=== PATIENT | male | born 1990 | race Caucasian/White ===

== ENCOUNTER 2016-11-04 16:35 | Emergency (ER) | payer OTHER ==
[~2016-11-04] VITALS: Ht 180.3 cm; Wt 75.1 kg
[~2016-11-04 16:35] MED LIST: LAMO25TA PO; MIRT15TA PO
[2016-11-04 16:46] VITALS: Ht 180.3 cm; Wt 75.1 kg
[2016-11-04] MEDS ORDERED: ACETAMINOPHEN 500 MG TAB PO ONE (17:44)
[2016-11-04 19:25] VITALS: TEMP 36.7
--- NOTE | 2016-11-04 20:00 | DIAGNOSTIC IMAGING REPORT ---
RIGHT RIBS UNILATERAL WITH PA CHEST CLINICAL HISTORY: Right lower rib pain. COMPARISON STUDY: Chest radiograph November 24, 2015. FINDINGS: There is no pneumothorax or pleural effusion. Lungs are clear. Cardiac size is normal. Mediastinal contours are normal. There is a possible acute nondisplaced fracture of the anterior right 10th rib at the level of the costal cartilage. IMPRESSION: No pneumothorax. Possible acute nondisplaced fracture of the anterior right 10th rib at the level the costal cartilage. Electronically signed by: Christoph Ma M.D. 11/04/2016 7:59 PM Dictated Date/Time: 11/04/2016 7:56 PM
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
[2016-11-04 20:30] VITALS: BP 127/86; PULSE 61; O2SAT 99
== END 2016-11-04 20:31 | disposition home or self-care (01) ==
LOC: C.EDB 16:36 → C.EDA 20:31
DX: T74.21XA Adult sexual abuse, confirmed, initial encounter (principal); Y07.59 Other non-family member, perpetrator of maltreatment and neglect; S22.31XA Fracture of one rib, right side, initial encounter for closed fracture; Y08.89XA Assault by other specified means, initial encounter; F17.200 Nicotine dependence, unspecified, uncomplicated

== ENCOUNTER 2016-11-09 20:34 | Emergency (ER) | payer OTHER ==
[~2016-11-09] VITALS: Ht 180.3 cm; Wt 75.5 kg
[2016-11-09 20:36] VITALS: Ht 180.3 cm; Wt 75.5 kg
[2016-11-09 20:56] VITALS: TEMP 36.9
--- NOTE | 2016-11-09 21:27 | DIAGNOSTIC IMAGING REPORT ---
CHEST ONE VIEW PORTABLE CLINICAL HISTORY: Possible foreign body. COMPARISON STUDY: Chest radiograph November 23, 2014. FINDINGS: Lung volumes are normal. Lungs are clear. There is no pneumothorax or pleural effusion. Pulmonary vascularity is normal. Cardiomediastinal silhouette is normal. No radiopaque foreign body is identified within the chest. IMPRESSION: 1. No acute cardiopulmonary findings. 2. No radiopaque foreign body within the chest. Electronically signed by: Christoph Ma M.D. 11/09/2016 9:26 PM Dictated Date/Time: 11/09/2016 9:23 PM
--- NOTE | 2016-11-09 21:29 | DIAGNOSTIC IMAGING REPORT ---
KUB CLINICAL HISTORY: Possible foreign body. COMPARISON STUDY: KUB November 23, 2014. FINDINGS: A 2.2 cm radiodensity projects over the pelvis and is likely within the rectum. A portion of this is metallic. No additional radiopaque foreign bodies are identified. Bowel gas pattern is normal. IMPRESSION: 2.2 cm radiodensity projecting over the pelvis which likely reflects a rectal foreign body, a portion of which is metallic. Electronically signed by: Christoph Ma M.D. 11/09/2016 9:28 PM Dictated Date/Time: 11/09/2016 9:26 PM
[2016-11-09 23:12] LABS: URINE APPEARANCE CLEAR (CLEAR); URINE BILIRUBIN NEG (NEG); URINE COLOR YELLOW; URINE EPITHELIAL CELL AUTO 0-5 /lpf (0-5); URINE NITRITE NEG (NEG); URINE PH 6.5 (4.5-7.5); URINE SPECIFIC GRAVITY 1.023 (1.000-1.030); UROBILINOGEN NEG (NEG); ZZUR CULT IF INDIC CLEAN CATCH NO
[2016-11-09 23:25] LABS: BASO % 0.2 %; BASO ABS # 0.01 K/uL (0-0.2); COMPLETE YES; EOS % 2.4 %; HEMATOCRIT 45.3 % (42-52); IG% 0.2 %; LYMPH % 28.9 %; LYMPH ABS # 1.81 K/uL (1.2-3.4); MEAN CELL VOLUME 88.8 fL (80-100); MEAN CORPUSCULAR HEMOGLOBIN 30.2 pg (25-34); MONO % 4.6 %; NEUT % 63.7 %; PLATELET COUNT 151 K/uL (130-400); WHITE BLOOD COUNT 6.26 K/uL (4.8-10.8)
[2016-11-09 23:33] LABS: MANUAL MICROSCOPIC REQUIRED? NO; REVIEW REQ? NO
[2016-11-09 23:48] LABS: BUN/CREATININE RATIO 20.4 (10-20); CALCIUM 8.2 mg/dl (8.5-10.1); CREATININE 0.95 mg/dl (0.60-1.40); POTASSIUM 3.7 mmol/L (3.5-5.1)
[2016-11-10] MEDS ORDERED: ACETAMINOPHEN 500 MG TAB PO STA
[2016-11-10 00:14] VITALS: BP 133/71; PULSE 76; O2SAT 98
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
== END 2016-11-10 00:14 | disposition home or self-care (01) ==
LOC: C.EDB 20:36 → C.EDA 11-10 00:14
DX: Z04.41 Encounter for examination and observation following alleged adult rape (principal); T18.9XXA Foreign body of alimentary tract, part unspecified, initial encounter; X58.XXXA Exposure to other specified factors, initial encounter; T14.91 Suicide attempt; X78.8XXA Intentional self-harm by other sharp object, initial encounter

== ENCOUNTER 2016-12-11 19:31 | Emergency (ER) | payer OTHER ==
[~2016-12-11] VITALS: Ht 182.9 cm; Wt 75.7 kg
[~2016-12-11 19:31] MED LIST changes: -LAMO25TA PO
[2016-12-11 19:43] VITALS: Ht 182.9 cm; Wt 75.7 kg
[2016-12-11 20:38] VITALS: TEMP 36.6
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
--- NOTE | 2016-12-11 21:18 | DIAGNOSTIC IMAGING REPORT ---
ABDOMEN 2VIEW W/PA CHEST RTN CLINICAL HISTORY: ABDOMINAL PAIN/GI pain COMPARISON STUDY: 11/09/2016 FINDINGS: The soft tissues, psoas shadows, renal outlines and intestinal gas pattern appear normal. There is no evidence for bowel obstruction. There is no evidence for free intraperitoneal air. No abnormal abdominal calcifications are seen. A frontal view of the chest was performed and is unremarkable. 2 cm radiopaque density overlying the lower descending colon on the left. This may represent bowel content. No obstructive characteristics IMPRESSION: No obstructive characteristics. 2 cm radiopaque density overlying the distal descending colon most likely related to bowel content. No obstructive characteristics The above report was generated using voice recognition software. It may contain grammatical, syntax or spelling errors. Electronically signed by: Sherman Tavarez M.D. 12/11/2016 9:17 PM Dictated Date/Time: 12/11/2016 9:15 PM
[2016-12-11 21:28] LABS: BASO % 0.5 %; BASO ABS # 0.04 K/uL (0-0.2); COMPLETE YES; EOS % 2.9 %; HEMATOCRIT 42.2 % (42-52); IG% 0.3 %; LYMPH % 23.9 %; LYMPH ABS # 1.83 K/uL (1.2-3.4); MEAN CELL VOLUME 88.5 fL (80-100); MEAN CORPUSCULAR HEMOGLOBIN 31.7 pg (25-34); MEAN CORPUSCULAR HGB CONC 35.8 g/dl (32-36); MEAN PLATELET VOLUME 10.8 fL (7.4-10.4); MONO % 6.1 %; NEUT % 66.3 %; PLATELET COUNT 161 K/uL (130-400); RED BLOOD COUNT 4.77 M/uL (4.7-6.1); WHITE BLOOD COUNT 7.67 K/uL (4.8-10.8)
[2016-12-11 21:38] LABS: INR 1.1 (0.9-1.1); PARTIAL THROMBOPLASTIN RATIO 1.2; PROTHROMBIN TIME (PATIENT) 11.8 SECONDS (9.0-12.0)
[2016-12-11 21:45] LABS: BLOOD UREA NITROGEN 15 mg/dl (7-18); BUN/CREATININE RATIO 14.7 (10-20); CALCIUM 8.8 mg/dl (8.5-10.1); CARBON DIOXIDE 29 mmol/L (21-32); CHLORIDE 104 mmol/L (98-107); GLUCOSE 114 mg/dl (70-99); POTASSIUM 3.7 mmol/L (3.5-5.1); SODIUM 139 mmol/L (136-145)
[2016-12-11 21:48] LABS: ALKALINE PHOSPHATASE 78 U/L (45-117); ALT/SGPT 25 U/L (12-78); AST/SGOT 12 U/L (15-37)
[2016-12-11] MEDS ORDERED: OMEP40CA41 PO (22:25)
[2016-12-11 23:08] VITALS: BP 138/71; PULSE 70; O2SAT 99
== END 2016-12-11 23:13 | disposition home or self-care (01) ==
LOC: C.EDB 19:33
DX: Z04.41 Encounter for examination and observation following alleged adult rape (principal); G89.29 Other chronic pain; R10.9 Unspecified abdominal pain; Z87.891 Personal history of nicotine dependence; Z91.5 Personal history of self-harm

== ENCOUNTER 2023-07-06 04:20 | Inpatient (IN) ==
--- NOTE | 2023-07-06 04:37 | Emergency Department Note ---
Impression & Plan Swallowed foreign body, Urethral foreign body ED Provider Note CHIEF COMPLAINT: Swallowed foreign body HISTORY OF PRESENTING ILLNESS: This 32-year-old male patient presents to the emergency department from [facility] with 4 correctional officers for evaluation of a swallowed foreign body. The patient apparently pulled out his urinary catheter, took it apart, swallowed the long central plastic part from the catheter and then inserted multiple pieces of the catheter back into the penis. He is complaining of lower abdominal pain and penile pain currently. He states that he swallowed the whole clear part of the inner catheter tube and vomited as he was trying to swallow it, but no nausea or vomiting since swallowing the catheter. 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 There was a bunch of urine that came out when he pulled the catheter out, but no blood. No fevers. No fevers. Admits to mild discomfort of his esophagus, but denies chest pain or shortness of breath. REVIEW OF SYSTEMS: See HPI for pertinent positives and pertinent negatives. ALLERGIES: Haldol MEDICATIONS: Antibiotic (does not remember the name), BuSpar, Remeron, Latuda per patient - did not have Med list from [facility] at the time of my exam PAST MEDICAL HISTORY: He is unsure what all he is diagnosed with and we do not have the medical records from [facility] at the time of my exam PHYSICAL EXAM: VITALS: Vitals are noted on the nurse's note and reviewed by myself. GENERAL: The patient was restrained with 4 correctional officers at bedside. Non toxic, no acute distress, non-diaphoretic. MOUTH: Mucous membranes moist. Uvula midline. Airway patent. NECK: Supple without nuchal rigidity. HEART: Regular rate and rhythm without murmurs gallops or rubs. LUNGS: Clear to auscultation bilaterally without wheezes, rales or rhonchi. No retractions or accessory muscle use. ABDOMEN: Positive bowel sounds x 4. Normal tympanic percussion. Soft, tender to palpation in the suprapubic area. No masses or organomegaly. Gallardo sign negative. No guarding or rebound tenderness. : Permission to perform the exam. Correctional officers in the room during the exam. Testicles are descended bilaterally and are nontender to palpation. No testicular masses. No penile lesions noted. No obvious foreign body at the urethral meatus. No blood coming from the urethral meatus. No penile discharge. NEURO: Patient was alert and oriented. DIFFERENTIAL DIAGNOSIS: Differential diagnosis includes swallowed foreign body, aspiration, obstruction, perforation, stricture, or others. ED COURSE AND MEDICAL DECISION MAKING: HISTORY FROM INDEPENDENT HISTORIAN: Additional history was obtained from the correctional Officers INTERPRETATION OF LABS: I interpreted the labs with full lab results as below in the lab section of this note. White blood cell count normal at 8.08. Hemoglobin slightly low at 13.9. Platelet count normal at 188. Coags normal. CMP without significant abnormalities. The patient was unable to give a urine sample while in the emergency department. INTERPRETATION OF IMAGING: Imaging studies were interpreted by myself and read by radiology as per the imaging section of this note. CT scan of the chest, abdomen, and pelvis with IV contrast showed numerous tubular foreign bodies throughout the stomach as well as 2 tubular structures within the base of the penis with 1 extending into the right side of the urinary bladder. There was also a radiopacity within the region of the superior azygous vein of unknown clinical significance. Correlate with surgical history. No other foreign bodies within the chest proper. EXTERNAL RECORDS REVIEWED: Per correctional officers the patient did not come with any medical paperwork to review. CONSULTATIONS: Carlin Gallagher PA-C of urology, Dr. Ascencio of GI, and Dr. Gorman of urology. MDM SUMMARY: I examined the patient with multiple correctional officers at bedside. The patient removed his Shields catheter and took it apart into different pieces. He swallowed the whole clear plastic central portion of the Shields catheter per patient and then put multiple smaller pieces into the urethra again. The patient has mild suprapubic tenderness on exam, but no other abdominal pain or tenderness. No nausea or vomiting. No respiratory symptoms. An IV lock was placed and labs were drawn. No concerning abnormalities on laboratory studies. CT scans of the chest, abdomen, and pelvis with IV contrast showed the foreign bodies in the stomach as well as in the urethra. I initially spoke with Carlin Gallagher PA-C of urology who came down and evaluated the patient prior to the results of the CT scans. Please refer to his dictation for further details. He stated that the urethral foreign bodies may require cystoscopy for removal or may be able to be removed at bedside. However, he was concerned that the swallowed portion would not be able to pass on its own. I spoke with Dr. Ascencio of GI who stated that since the Shields catheter part was soft and flexible that it should pass on its own and is not felt to be a risk for perforation. I discussed with Dr. Ascencio the concern of urology that the part of the Shields catheter that he swallowed would not be able to pass. However, Dr. Ascencio still does not feel that EGD is needed at this time and that the patient can be observed for any signs of obstruction while he is trying to pass it on his own. Dr. Gorman of urology reviewed the CT scan images and stated that the foreign bodies could be removed at bedside and that he did not require sedation or cystoscopy at this time. Dr. Gorman spoke with the patient about the bedside procedure. However, the patient refused to have the procedure done at bedside. Dr. Gorman did not feel the patient requires the OR or general anesthesia for the procedure and again reiterated that the procedure should be done at bedside under local anesthesia. Per Dr. Gorman, the patient continued to refuse despite understanding the risks for retained foreign bodies including urinary retention, infection, sepsis, perforation, or others. I spoke with Soledad SON from medical at [facility] urged to sending the patient back to [facility] for observation and passing of his foreign bodies. However, she stated that she would need to speak with the attending physician when he came in this morning to confirm acceptance back to the facility. Due to change of shift, the patient's care was transferred to Jocelin Lucas PA-C. Please refer to her dictation for further details. The patient's care was transferred in stable condition. DIAGNOSIS: Swallowed foreign body Self-inflicted urethral foreign body Past Med/Surg History Social History Smoking Status: Never smoker Preferred Language: Romansh Communication Ability: Effective Teacher Asst Required: No Beliefs That Will Affect Care: None Current Living Situation: Other Current Living Situation Comment: Inmate at [facility] Feels Safe at Home: Yes Allergies Allergies Allergy/AdvReac Type Severity Reaction Status Date / Time Egg Derived Allergy Unknown SWELLING Verified 11/09/16 21:28 OF THROAT haloperidol [From Haldol] Allergy Verified 07/06/23 07:13 Home Meds Home Medications Medication Instructions Recorded Confirmed No Known Home Medications 07/06/23 07/06/23 Results & Data (ED) Vital Signs Vital Signs - 24 hr 07/06/23 04:24 07/06/23 07:00 Temperature 36.7 C Temperature Source Temporal Artery Scan Pulse Rate 69 Pulse Rate [Finger] 72 Pulse Rhythm Regular Pulse Strength Normal Respiratory Rate 17 17 Respiratory Effort / Characteristics Non-Labored Spontaneous Respiratory Depth Normal Respiratory Pattern Regular Blood Pressure 132/84 Blood Pressure [Right Arm] 128/83 Blood Pressure Mean 100 Blood Pressure Mean [Right Arm] 98 Blood Pressure Position Sitting Pulse Oximetry 99 98 Oxygen Delivery Method Room Air Sepsis Recent Fever Within 48 Hours No Sepsis New/Unexplained Change in Mental Status N/A Sepsis Action Taken by Nursing No Action Required Laboratory Data 07/06/23 04:58 07/06/23 16:37 Lab Results 07/06/23 07/06/23 Range/Units 04:58 05:11 WBC 8.08 (4.8-10.8) K/ul RBC 4.70 (4.70-6.10) M/uL Hgb 13.9 L (14.0-18.0) g/dl POC Hgb 13.9 L (14.0-18.0) g/dl Hct 41.5 L (42.0-52.0) % POC Hct 41 L (42-52) % MCV 88.3 (80.0-100.0) fL MCH 29.6 (25.0-34.0) pg MCHC 33.5 (32.0-36.0) g/dL RDW Std Deviation 38.2 (36.4-46.3) fL RDW Coeff of Tiffany 11.9 (11.5-14.5) % Plt Count 188 (130-400) K/uL MPV 11.3 (9.4-12.4) fL Immature Gran % (Auto) 0.4 % Neut % (Auto) 81.7 % Lymph % (Auto) 9.8 % Casey % (Auto) 6.4 % Eos % (Auto) 1.2 % Baso % (Auto) 0.5 % Neut # (Auto) 6.60 H (1.40-6.50) K/uL Lymph # (Auto) 0.79 L (1.20-3.40) K/uL Casey # (Auto) 0.52 (0.11-0.59) K/uL Eos # (Auto) 0.10 (0.00-0.50) K/uL Baso # (Auto) 0.04 (0.00-0.20) K/uL Immature Gran # (Auto) 0.03 (0.01-0.20) K/uL PT 11.4 (9.0-12.0) Seconds INR 1.0 (0.9-1.1) APTT 30 (21-31) Seconds PTT Ratio 1.1 POC Sodium 141 (135-144) mmol/L Sodium 138 (136-145) mmol/L POC Potassium 3.9 (3.3-5.0) mmol/L Potassium 4.1 (3.5-5.1) mmol/L POC Chloride 100 L (101-112) mmol/L Chloride 105 (98-107) mmol/L Carbon Dioxide 28 (21-32) mmol/L POC Total CO2 28 (24-31) mmol/L Anion Gap 5 (3-11) POC Anion Gap 18.0 (16-25) mmol/L POC BUN 21 H (7-18) mg/dl BUN 19 (6-23) mg/dl Creatinine 0.86 (0.6-1.4) mg/dl POC Creatinine 0.8 (0.6-1.3) mg/dl Est Cr Clr Drug Dosing 128.9 ml/min Est GFR ( Amer) 133.0 ml/min Est GFR (Non-Af Amer) 114.7 ml/min BUN/Creatinine Ratio 22.1 H (10-20) Glucose 83 (70-99(Fasting)) mg/dl POC Glucose (other) 87 (70-99) mg/dl Calcium 9.0 (8.6-10.3) mg/dl POC Ioniz Calcium Janet 1.24 (1.12-1.32) mmol/l Total Bilirubin 0.4 (0.2-1.0) mg/dl AST 16 (13-39) U/L ALT 12 (7-52) U/L Alkaline Phosphatase 73 (34-104) U/L Total Protein 7.0 (6.0-8.3) gm/dl Albumin 4.6 (3.4-5.0) gm/dl Globulin 2.4 L (2.5-4.0) gm/dl Albumin/Globulin Ratio 1.9 (0.9-2) Administered Medications Lactated Ringer's (Lr) 1,000 mls @ 80 mls/hr IV .[id number] MALENA Stop: 07/07/23 09:41 Last Infusion: 07/06/23 16:28 Dose: 80 mls/hr Documented By: Admin: 07/06/23 10:41 Dose: 100 mls/hr Documented By: [facility] Morphine Sulfate (Morphine Sulfate 2 Mg/Ml Carp) 1 mg IV Q4H PRN PRN Reason: Pain(5+) Stop: 07/20/23 15:30 Last Admin: 07/06/23 15:50 Dose: 1 mg Documented By: MELODY Discontinued Medications Acetaminophen (Ofirmev) 1,000 mg in 100 mls @ 400 mls/hr IV NOW STA Stop: 07/06/23 11:03 Last Infusion: 07/06/23 12:10 Dose: Infused Documented By: Admin: 07/06/23 11:13 Dose: 400 mls/hr Documented By: [facility] Famotidine (Pepcid 20mg Iv Push) 20 mg in 5 mls @ 2.5 mls/min IV NOW STA Stop: 07/06/23 11:01 Last Admin: 07/06/23 11:12 Dose: 2.5 mls/min Documented By: [facility] Ioversol (Optiray 320 500ml) 100 ml IV ONCE ONE Stop: 07/06/23 05:39 Last Admin: 07/06/23 05:39 Dose: 87 ml Documented By: JUAN PABLO Ketorolac Tromethamine (Ketorolac Tromethamine 15 Mg/Ml Vial) 15 mg IV NOW STA Stop: 07/06/23 09:14 Last Admin: 07/06/23 09:19 Dose: 15 mg Documented By: PEREZ Lidocaine HCl (Xylocaine 1%/Sod Bicarb 20 Ml Vial) 20 ml INFIL NOW ONE Stop: 07/06/23 07:03 Last Admin: 07/06/23 08:51 Dose: Not Given Documented By: BRINA Imaging Data Radiologist's Impression: Abdomen/Pelvis CT 07/06/23 04:51 CR Exam(s): CT ABDOMEN + PELVIS With Contrast IV Amt: 87 ML OPTIRAY 320 EXAM: CT Abdomen and Pelvis With Intravenous Contrast CLINICAL HISTORY: Reason for exam: Swallowed catheter, abd pain, FB inserted in penis. TECHNIQUE: Axial computed tomography images of the abdomen and pelvis with intravenous contrast. CTDI is 28 mGy and DLP is 1355.83 mGy-cm. Automated exposure control was utilized for the study. A dose lowering technique was utilized adhering to the principles of ALARA. CONTRAST: Patient received 87 ML OPTIRAY 320 of IV contrast COMPARISON: No relevant prior studies available. FINDINGS: Lung bases: Unremarkable. No mass. No consolidation. ABDOMEN: Liver: Unremarkable. No mass. Gallbladder and bile ducts: Unremarkable. No calcified stones. No ductal dilation. Pancreas: Unremarkable. No mass. No ductal dilation. Spleen: Unremarkable. No splenomegaly. Adrenals: Unremarkable. No mass. Kidneys and ureters: Unremarkable. No solid mass. No hydronephrosis. Stomach and bowel: There are numerous tubular foreign bodies demonstrated throughout the stomach. No obstruction. No mucosal thickening. PELVIS: Appendix: No findings to suggest acute appendicitis. Bladder: See below. Reproductive: There are 2 tubular structures demonstrated within the base of the penis 1 extending into the right side of the urinary bladder, presumed foreign body. ABDOMEN and PELVIS: Intraperitoneal space: Unremarkable. No free air. No significant fluid collection. Bones/joints: No acute fracture. No dislocation. Soft tissues: Unremarkable. Vasculature: Unremarkable. No abdominal aortic aneurysm. Lymph nodes: Unremarkable. No enlarged lymph nodes. IMPRESSION: Multiple presumed foreign bodies as described, correlate clinically. Communications: Verify Receipt Electronically signed by: Candelario Rios MD 07/06/23 06:[address] 07/06/23 04:51 Exam(s): CT CHEST With Contrast IV Amt: 87 ML OPTIRAY 320 EXAM: CT Chest With Intravenous Contrast CLINICAL HISTORY: Reason for exam: Swallowed urinary catheter, dysphagia. TECHNIQUE: Axial computed tomography images of the chest with intravenous contrast. CTDI is 28 mGy and DLP is 1355.83 mGy-cm. Automated exposure control was utilized for the study. A dose lowering technique was utilized adhering to the principles of ALARA. CONTRAST: Patient received 87 ML OPTIRAY 320 of IV contrast COMPARISON: No relevant prior studies available. FINDINGS: Lungs: Unremarkable. No mass. No consolidation. Pleural space: Unremarkable. No pneumothorax. No significant effusion. Heart: Unremarkable. No cardiomegaly. No significant pericardial effusion. No significant coronary artery calcifications. Bones/joints: Unremarkable. No acute fracture. No dislocation. Soft tissues: Unremarkable. Vasculature: There is 9 mm metallic like radiopacity present within the region of the azygous vein. No thoracic aortic aneurysm. Lymph nodes: Unremarkable. No enlarged lymph nodes. Stomach and bowel: Abnormality within the stomach please see abdomen pelvis CT report. IMPRESSION: Radiopacity superior azygous vein of unknown clinical significance. Correlate with surgical history. No other foreign bodies within the chest proper Electronically signed by: Candelario Rios MD 07/06/23 06:24 AM Discharge Plan Visit Data Chief Complaint: Foreign Body Stated Complaint: SWALLOWED PIECES OF HIS CATHETER ED Provider: Gema Bonilla ED Midlevel Provider: Jocelin Lucas Discharge Problem: Swallowed foreign body, Urethral foreign body Patient Disposition: Admitted As Inpatient Condition: Good Discharge Instructions Interventions: ED Discharge Assessment Last Done: 07/06/23 14:14 Discharge Problem: Swallowed foreign body Qualifiers: Encounter type: initial encounter Qualified Code(s): T18.9XXA - Foreign body of alimentary tract, part unspecified, initial encounter Urethral foreign body Qualifiers: Encounter type: initial encounter Qualified Code(s): T19.0XXA - Foreign body in urethra, initial encounter
[2023-07-06 05:14] LABS: Basophils # (auto) 0.04 K/uL (0.00-0.20); Basophils % (auto) 0.5 %; Eosinophils % (auto) 1.2 %; Hematocrit (blood only) 41.5 % (42.0-52.0); Hemoglobin 13.9 g/dl (14.0-18.0); Immature Granulocytes # (auto) 0.03 K/uL (0.01-0.20); Immature Granulocytes % (auto) 0.4 %; Lymphocytes # (auto) 0.79 K/uL (1.20-3.40); Lymphocytes % (auto) 9.8 %; Mean Corpuscular Hemoglobin 29.6 pg (25.0-34.0); Mean Corpuscular Hgb Conc 33.5 g/dL (32.0-36.0); Mean Corpuscular Volume 88.3 fL (80.0-100.0); Mean Platelet Volume 11.3 fL (9.4-12.4); Monocytes # (auto) 0.52 K/uL (0.11-0.59); Monocytes % (auto) 6.4 %; Neutrophils % (auto) 81.7 %; Platelet Count 188 K/uL (130-400); RDW Coefficient of Variation 11.9 % (11.5-14.5); RDW Standard Deviation 38.2 fL (36.4-46.3); White Blood Count 8.08 K/ul (4.8-10.8)
[2023-07-06 05:30] LABS: Albumin Globulin Ratio 1.9 (0.9-2); Albumin Level 4.6 gm/dl (3.4-5.0); BUN Creatinine Ratio 22.1 (10-20); Bilirubin,Total 0.4 mg/dl (0.2-1.0); Creatinine Clr Calc Pharmacy 128.9 ml/min; Est GFR (Non-African American) 114.7 ml/min; Globulin 2.4 gm/dl (2.5-4.0); Potassium 4.1 mmol/L (3.5-5.1)
--- NOTE | 2023-07-06 05:30 | Urology Consultation ---
Date of Consultation July 06, 2023 Assessment & Plan (1) Urethral foreign body: I discussed with the treating clinician the emergency department. The patient currently has imaging of his chest, abdomen, and pelvis secondary to the issues with the foreign body as described in history of present illness We will wait to see what the imaging showsI suspect the patient may require some type of urethral manipulation with possible cystoscopy due to the noted foreign body insertion Would recommend making the patient n.p.o. for the present time Additional recommendations will be forthcoming based on patient's imaging results Attending note: Agree with note as above. Patient's vitals and labs were all reviewed. Pertinent values in the HPI and plan section. Imaging was reviewed interpreted by myself. There is have numerous foreign bodies within the stomach. Additionally there appears to be 2 segments of likely the Shields catheter foreign body within the urethra with the head of the Shields appearing to be within the bladder. White count 8.08. Creatinine was 0.86. Hemoglobin 13.9. Vitals were reviewed. Patient's surgical, medical, social, and family history were all reviewed with pertinent values as above. Awaiting assessment from GI specialist in order to coordinate extraction of urethral/bladder foreign body. Per imaging does appear to be possibly able to be manually removed without cystoscopy however may end up needing cystoscopic removal if foreign body migrat es into the bladder. Will likely require upper endoscopy/EGD in order to extract foreign body from stomach and would be able to likely coordinate extraction dependent on gastroenterology plan. History of Present Illness Reason for Consultation: Urethral foreign body History of Present Illness This is a 32-year-old male who is currently incarcerated. The patient presented to the emergency department secondary to issues with foreign body. The notes that he has a chronic indwelling Shields catheter secondary to urethral strictureshe notes the urethral strictures are secondary to him placing numerous foreign bodies into his urethra in the past. Patient notes that he e destiny had a suprapubic catheter at 1 point but no longer has this. To the best of his knowledge the Shields catheter was able to be placed at bedside but he notes that he is unable to urinate effectively without a catheter in place. The patient notes that last evening he pulled his Shields catheter out with the balloon still inflated. The patient then dismantled his Shields catheter swallowing several parts of it and then reinserting several parts of the Shields catheter back into his urethra. At the present time he does note some penile pain and is unable to urinate. When he did pull his Shields catheter out he noted some urine drained but he did not have any hematuria. He denies any back or flank pain. Since arrival to hospital patient has had labs including a CBC were white blood cell count and platelet count were normal. His hemoglobin and hematocrit were 13.9 and 41.5. Coagulation studies and chemistry profile is pending. At the time of my interview the patient was resting comfortably in bed and he was in no distress. Concerning past surgical history the patient notes that he has had numerous cystoscopies and endoscopies Concerning past medical history the patient says that he is treated for "psychiatric issues" but is unsure of his exact diagnoses Social history the patient does not smoke or vape Concerning family history he was unable to provide any details regarding this area Allergies Allergy/AdvReac Type Severity Reaction Status Date / Time Egg Derived Allergy Unknown SWELLING Verified 11/09/16 21:28 OF THROAT Patient History Social History Smoking Status: Never smoker Preferred Language: Mongolian Feels Safe at Home: Yes Review of Systems Constitutional: no fever and no chills Ear, Nose, Mouth, Throat: no hearing loss Respiratory: no cough and no dyspnea Cardiovascular: no chest pain Gastrointestinal: no abdominal pain, no nausea and no vomiting Genitourinary: + as per Subjective / HPI Musculoskeletal: no back pain Integumentary: no rash Neurologic: no localized weakness Physical Exam Constitutional: WD/WN, vitals as above Eyes: no conjunctival abnormality ENMT: Ears: no hearing impairment Mouth: no oropharynx abnormality Neck: trachea midline Respiratory: normal respiratory effort, lungs clear to auscultation Cardiovascular: Rate/Rhythm: regular rate and regular rhythm Gastrointestinal (Abdomen): Abdomen is soft and nondistended. There is no pain with palpation Musculoskeletal: No calf tenderness Skin: no rashes Neurologic: moves all extremities Psychiatric: A+Ox3, euthymic affect Genitourinary: Patient's penis was examined. The penis was semirigid with a possible palpable foreign body in the penile shaft. There is nothing protruding from the urethral meatus. The penile shaft was somewhat tender to palpation Results & Data Vital Signs (Past 12 Hours) Vital Signs Temp Pulse Resp BP Pulse Ox O2 Del Method 07/06/23 04:24 36.7 C 69 17 132/84 99 Room Air PG Care Time/CCT Total # of Minutes Spent Total Time Spent with Patient: Total time spent is greater than 50% in coordination of care (as documented) at patient's floor/unit and/or counseling patient: Coding Level of Care Code 40038 IN/OBS CONSULT LVL 5,80M Diagnoses Urethral foreign body T19.0XXA
[2023-07-06] MEDS: OPTIRAY 320 500ml IV ONE (05:39)
[2023-07-06 05:44] LABS: Partial Thromboplastin Ratio 1.1; Partial Thromboplastin Time 30 Seconds (21-31); Prothrombin Time 11.4 Seconds (9.0-12.0)
--- NOTE | 2023-07-06 06:22 | CT Scan Report ---
Exam(s): CT ABDOMEN + PELVIS With Contrast IV Amt: 87 ML OPTIRAY 320 EXAM: CT Abdomen and Pelvis With Intravenous Contrast CLINICAL HISTORY: Reason for exam: Swallowed catheter, abd pain, FB inserted in penis. TECHNIQUE: Axial computed tomography images of the abdomen and pelvis with intravenous contrast. CTDI is 28 mGy and DLP is 1355.83 mGy-cm. Automated exposure control was utilized for the study. A dose lowering technique was utilized adhering to the principles of ALARA. CONTRAST: Patient received 87 ML OPTIRAY 320 of IV contrast COMPARISON: No relevant prior studies available. FINDINGS: Lung bases: Unremarkable. No mass. No consolidation. ABDOMEN: Liver: Unremarkable. No mass. Gallbladder and bile ducts: Unremarkable. No calcified stones. No ductal dilation. Pancreas: Unremarkable. No mass. No ductal dilation. Spleen: Unremarkable. No splenomegaly. Adrenals: Unremarkable. No mass. Kidneys and ureters: Unremarkable. No solid mass. No hydronephrosis. Stomach and bowel: There are numerous tubular foreign bodies demonstrated throughout the stomach. No obstruction. No mucosal thickening. PELVIS: Appendix: No findings to suggest acute appendicitis. Bladder: See below. Reproductive: There are 2 tubular structures demonstrated within the base of the penis 1 extending into the right side of the urinary bladder, presumed foreign body. ABDOMEN and PELVIS: Intraperitoneal space: Unremarkable. No free air. No significant fluid collection. Bones/joints: No acute fracture. No dislocation. Soft tissues: Unremarkable. Vasculature: Unremarkable. No abdominal aortic aneurysm. Lymph nodes: Unremarkable. No enlarged lymph nodes. IMPRESSION: Multiple presumed foreign bodies as described, correlate clinically. Communications: Verify Receipt Electronically signed by: Candelario Rios MD 07/06/23 06:20 AM
--- NOTE | 2023-07-06 06:25 | CT Scan Report ---
Exam(s): CT CHEST With Contrast IV Amt: 87 ML OPTIRAY 320 EXAM: CT Chest With Intravenous Contrast CLINICAL HISTORY: Reason for exam: Swallowed urinary catheter, dysphagia. TECHNIQUE: Axial computed tomography images of the chest with intravenous contrast. CTDI is 28 mGy and DLP is 1355.83 mGy-cm. Automated exposure control was utilized for the study. A dose lowering technique was utilized adhering to the principles of ALARA. CONTRAST: Patient received 87 ML OPTIRAY 320 of IV contrast COMPARISON: No relevant prior studies available. FINDINGS: Lungs: Unremarkable. No mass. No consolidation. Pleural space: Unremarkable. No pneumothorax. No significant effusion. Heart: Unremarkable. No cardiomegaly. No significant pericardial effusion. No significant coronary artery calcifications. Bones/joints: Unremarkable. No acute fracture. No dislocation. Soft tissues: Unremarkable. Vasculature: There is 9 mm metallic like radiopacity present within the region of the azygous vein. No thoracic aortic aneurysm. Lymph nodes: Unremarkable. No enlarged lymph nodes. Stomach and bowel: Abnormality within the stomach please see abdomen pelvis CT report. IMPRESSION: Radiopacity superior azygous vein of unknown clinical significance. Correlate with surgical history. No other foreign bodies within the chest proper Electronically signed by: Candelario Rios MD 07/06/23 06:24 AM
[2023-07-06 07:19] LABS: iSTAT Creatinine 0.8 mg/dl (0.6-1.3); iSTAT Hemoglobin 13.9 g/dl (14.0-18.0); iSTAT Ionized Calcium 1.24 mmol/l (1.12-1.32); iSTAT Potassium 3.9 mmol/L (3.3-5.0)
[2023-07-06] MEDS: XYLOCAINE 1%/SOD BICARB 20 ML VIAL INFIL ONE (08:51)
[2023-07-06] MEDS: KETOROLAC TROMETHAMINE 15 MG/ML VIAL IV STA (09:19)
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
[2023-07-06] MEDS ORDERED: ACETAMINOPHEN 1,000 MG/100 ML VIAL IV PRN (10:14)
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
[2023-07-06] MEDS: LACTATED RINGER'S 1,000 ML IV SCH (10:41)
[2023-07-06] MEDS ORDERED: FAMOTIDINE 200 MG/20 ML VIAL IV STA (10:49)
[2023-07-06] MEDS: FAMOTIDINE 20MG IV PUSH 20 MG/5 ML SYR IV STA (11:12)
[2023-07-06] MEDS: ACETAMINOPHEN 1,000 MG/100 ML VIAL IV STA (11:13)
--- NOTE | 2023-07-06 13:42 | XRay Report ---
KUB HISTORY: Acute generalized abdominal pain with possible foreign body ingestion worseing abd pain, in gested foreign body COMPARISON: CT abdomen and pelvis 07/06/2022 FINDINGS: Numerous linear centrally lucent ingested foreign bodies within the stomach are again noted . A zipper and battery pack devices are external to the patient. Contrast in the urinary bladder lume n. Air-filled loops of large and small bowel without obstruction. Moderate fecal retention. No renal calculi. No ureteral calculi. No pneumoperitoneum or pneumatosis. No fracture. IMPRESSION: 1. Numerous linear ingested foreign bodies within the stomach are again noted. 2. Moderate fecal retention with nonobstructive bowel gas pattern. 3. No pneumoperitoneum identified. ACT 112: Negative or not required by law. The above report was generated using voice recognition software. It may contain grammatical, syntax o r spelling errors. Electronically signed by: Joey Salas M.D. 07/06/2023 1:41 PM
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
[2023-07-06] MEDS: MoRPHine SULFATE 2 MG/ML CARP IV PRN (15:50)
--- NOTE | 2023-07-06 16:11 | Urology Progress Note ---
Date of Service July 06, 2023 Assessment & Plan (1) Urethral foreign body: Plan: urethral foreign body - this extends from the distal urethra into the bladder - reports it is a bassett catheter - refuses any bedside manipulation or cystoscopy - we reviewed the options and I have stressed that we will not revisit the bedside option later tonight as he has been offered this option twice today already and refused both times - discussed that this is an uncomfortable event, but not life threatening and does not require anesthesia - I confirmed a final time that he will not allow extraction at bedside and discussed that we will allow him to attempt to advance the catheter to the meatus throughout the night. - if/when visible, the catheter should be removed - discussed with nursing that they should not straight cath him check Cr tomorrow, no further interventions this afternoon or tonight. Admission and Anticipated Discharge Date Admission Date: July 06, 2023 Subjective several calls from office staff stating that the patient is complaining about abdominal pain random bladder scan of 600, but patient making minimal effort to actually void leaking relatively consistently from the urethra Physical Exam Physical Exam: end of the catheter is palpable around 4-5 cm from the meatus he will not allow any manipulation at bedside Results & Data Vital Signs (Past 12 Hours) Vital Signs Temp Pulse Pulse Resp BP BP BP 07/06/23 14:30 37.0 C 69 18 121/68 07/06/23 14:14 69 18 110/59 L 07/06/23 12:30 74 20 127/70 07/06/23 10:39 75 16 129/77 07/06/23 07:00 72 17 128/83 07/06/23 04:24 36.7 C 69 17 132/84 Pulse Ox O2 Del Method 07/06/23 14:30 99 Room Air 07/06/23 14:14 98 Room Air 07/06/23 12:30 98 07/06/23 10:39 96 Room Air 07/06/23 07:00 98 07/06/23 04:24 99 Room Air PG Care Time/CCT Total # of Minutes Spent Total Time Spent with Patient: Total time spent is greater than 50% in coordination of care (as documented) at patient's floor/unit and/or counseling patient: Coding Level of Care Code 87572 SUB INP/OBS CARE 2/35MIN Diagnoses Urethral foreign body T19.0XXA Encounter type: initial encounter (1) Urethral foreign body Encounter type: initial encounter Qualified Code(s): T19.0XXA - Foreign body in urethra, initial encounter
[2023-07-06 17:25] LABS: BUN Creatinine Ratio 16.7 (10-20); Calcium 8.8 mg/dl (8.6-10.3); Creatinine Clr Calc Pharmacy 142.1 ml/min; Est GFR (African American) 138.4 ml/min; Est GFR (Non-African American) 119.4 ml/min
[2023-07-06 21:04] LABS: BUN Creatinine Ratio 16.5 (10-20); Calcium 8.7 mg/dl (8.6-10.3); Creatinine Clr Calc Pharmacy 140.3 ml/min; Est GFR (African American) 137.7 ml/min; Est GFR (Non-African American) 118.8 ml/min
[2023-07-07 00:56] LABS: Calcium 8.6 mg/dl (8.6-10.3); Est GFR (African American) 131.7 ml/min; Est GFR (Non-African American) 113.7 ml/min; Potassium 3.9 mmol/L (3.5-5.1)
[2023-07-07 04:57] LABS: Basophils # (auto) 0.02 K/uL (0.00-0.20); Basophils % (auto) 0.4 %; Eosinophils # (auto) 0.01 K/uL (0.00-0.50); Eosinophils % (auto) 0.2 %; Hematocrit (blood only) 37.4 % (42.0-52.0); Lymphocytes # (auto) 0.32 K/uL (1.20-3.40); Lymphocytes % (auto) 6.9 %; Mean Corpuscular Hemoglobin 30.4 pg (25.0-34.0); Mean Corpuscular Hgb Conc 34.8 g/dL (32.0-36.0); Mean Corpuscular Volume 87.6 fL (80.0-100.0); Mean Platelet Volume 11.8 fL (9.4-12.4); Monocytes # (auto) 0.68 K/uL (0.11-0.59); Monocytes % (auto) 14.8 %; Neutrophils # (auto) 3.58 K/uL (1.40-6.50); Neutrophils % (auto) 77.7 %; Platelet Count 154 K/uL (130-400); RDW Coefficient of Variation 12.1 % (11.5-14.5); RDW Standard Deviation 38.8 fL (36.4-46.3); Red Blood Count 4.27 M/uL (4.70-6.10); White Blood Count 4.61 K/ul (4.8-10.8)
[2023-07-07 05:06] LABS: BUN Creatinine Ratio 18.6 (10-20); Calcium 8.7 mg/dl (8.6-10.3); Creatinine Clr Calc Pharmacy 128.9 ml/min; Est GFR (Non-African American) 114.7 ml/min
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
--- NOTE | 2023-07-07 08:19 | Urology Progress Note ---
Date of Service July 07, 2023 Assessment & Plan (1) Urethral foreign body: Plan No plan for intervention from right now We are not in-house today to be available if GI elects to take this patient to endoscopy for extraction of the stomach tubing If GI does elect to take him ultimately for procedure, we will plan to combine our procedure and extract his urethral/bladder tubing at the same time, however, we would greatly prefer delay until tomorrow or Wednesday for logistical reasons if GI intervention proves necessary Admission and Anticipated Discharge Date Admission Date: July 06, 2023 Subjective Patient not seen this morning but I discussed the patient with his nurse and reviewed his chart Creatinine has remained stable He is leaking around the catheter and has voided somewhat around it as well As of yet, still no plan from GI to plan for intervention We will continue to observe given the lack of threat from the catheter within the bladder Results & Data Vital Signs (Past 12 Hours) Vital Signs Temp Pulse Resp BP Pulse Ox O2 Del Method 07/07/23 07:30 37.5 C 75 16 120/65 96 Room Air 07/06/23 21:18 37.4 C 82 14 132/74 99 Room Air 07/06/23 21:15 Room Air PG Care Time/CCT Total # of Minutes Spent Total Time Spent with Patient: Total time spent is greater than 50% in coordination of care (as documented) at patient's floor/unit and/or counseling patient: Coding Level of Care Code None Diagnoses Urethral foreign body T19.0XXA Encounter type: initial encounter (1) Urethral foreign body Encounter type: initial encounter Qualified Code(s): T19.0XXA - Foreign body in urethra, initial encounter
[2023-07-07] MEDS ORDERED: FAMOTIDINE 200 MG/20 ML VIAL IV SCH (09:00)
[2023-07-07 09:07] LABS: BUN Creatinine Ratio 19.4 (10-20); Calcium 8.5 mg/dl (8.6-10.3); Creatinine Clr Calc Pharmacy 119.2 ml/min; Est GFR (African American) 125.5 ml/min; Est GFR (Non-African American) 108.2 ml/min
[2023-07-07] MEDS: FAMOTIDINE 20 MG in SYRINGE 3 ML IV SCH (09:43)
--- NOTE | 2023-07-07 11:42 | XRay Report ---
KUB CLINICAL HISTORY: Foreign body ingestion COMPARISON STUDY: CT of the abdomen and pelvis and KUB July 06, 2023. FINDINGS: Numerous tubular radiodensities within the stomach are unchanged since prior CT and KUB. Me tallic densities projecting over the abdomen represent a metal belt on the patient. No evidence for a bowel obstruction. No evidence for free air on supine exam. Contrast within the bladder from recent contrast-enhanced CT is noted. IMPRESSION: No change in numerous tubular radiodensities within the stomach consistent with ingested foreign bodies. ACT 112: Negative or not required by law. Electronically signed by: Christoph Ma M.D. 07/07/2023 11:40 AM
[2023-07-07] MEDS: MoRPHine SULFATE 4 MG/ML 1 ML CARP\\VIAL IV PRN (13:30)
[2023-07-07 16:20] LABS: BUN Creatinine Ratio 19.6 (10-20); Calcium 8.3 mg/dl (8.6-10.3); Creatinine Clr Calc Pharmacy 114.3 ml/min; Est GFR (African American) 119.2 ml/min; Est GFR (Non-African American) 102.9 ml/min; Potassium 4.1 mmol/L (3.5-5.1)
--- NOTE | 2023-07-07 16:27 | Gastroenterology Progress Note ---
Date of Service July 07, 2023 Assessment & Plan (1) Swallowed foreign body: Plan: Will go ahead and arrange EGD for removal because it looks to me like they won't leave the stomach. Plan for tomorrow in OR Admission and Anticipated Discharge Date Admission Date: July 06, 2023 Subjective tubes haven't moved Results & Data Vital Signs (Past 12 Hours) Vital Signs Temp Pulse Resp BP BP Pulse Ox O2 Del Method 07/07/23 13:50 36.4 C L 64 16 129/87 96 Nasal Cannula 07/07/23 07:30 37.5 C 75 16 120/65 96 Room Air O2 Flow Rate 07/07/23 13:50 2 07/07/23 07:30 (1) Swallowed foreign body Encounter type: initial encounter Qualified Code(s): T18.9XXA - Foreign body of alimentary tract, part unspecified, initial encounter
[2023-07-07 16:42] LABS: Appearance Urine Cloudy (Clear); Bacteria Urine Automated 1+ (Negative); Bilirubin Urine Negative (Negative); Blood Urine 3+ (Negative); Color Urine Orange; Epithelial Cell Urine Auto 0-5 /lpf (0-5); Glucose Urine UA Negative (Negative); Ketones Urine 1+ (Negative); Leukocyte Esterase Urine 1+ (Negative); Nitrite Urine Negative (Negative); RBC Urine Automated >30 /hpf (0-4); Specific Gravity Urine 1.038 (1.000-1.030); Urobilinogen Urine Negative (Negative); WBC Urine Automated >30 /hpf (0-5); pH Urine 7.5 (4.5-7.5)
[2023-07-07 16:45] LABS: Protein Urine 1+ (Negative)
[2023-07-08 07:00] LABS: Basophils # (auto) 0.02 K/uL (0.00-0.20); Basophils % (auto) 0.3 %; Eosinophils # (auto) 0.06 K/uL (0.00-0.50); Hematocrit (blood only) 36.2 % (42.0-52.0); Hemoglobin 12.1 g/dl (14.0-18.0); Immature Granulocytes # (auto) 0.03 K/uL (0.01-0.20); Immature Granulocytes % (auto) 0.5 %; Lymphocytes # (auto) 0.84 K/uL (1.20-3.40); Lymphocytes % (auto) 13.8 %; Mean Corpuscular Hemoglobin 29.8 pg (25.0-34.0); Mean Corpuscular Hgb Conc 33.4 g/dL (32.0-36.0); Mean Corpuscular Volume 89.2 fL (80.0-100.0); Mean Platelet Volume 11.9 fL (9.4-12.4); Monocytes # (auto) 0.75 K/uL (0.11-0.59); Monocytes % (auto) 12.3 %; Neutrophils # (auto) 4.39 K/uL (1.40-6.50); Neutrophils % (auto) 72.1 %; Platelet Count 136 K/uL (130-400); RDW Coefficient of Variation 11.9 % (11.5-14.5); RDW Standard Deviation 38.3 fL (36.4-46.3); Red Blood Count 4.06 M/uL (4.70-6.10); White Blood Count 6.09 K/ul (4.8-10.8)
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
[2023-07-08 07:08] LABS: BUN Creatinine Ratio 18.9 (10-20); Creatinine Clr Calc Pharmacy 123.2 ml/min; Est GFR (African American) 130.5 ml/min; Est GFR (Non-African American) 112.6 ml/min; Magnesium 1.8 mg/dl (1.7-2.4)
--- NOTE | 2023-07-08 14:34 | Urology Progress Note ---
Date of Service July 08, 2023 Assessment & Plan (1) Urethral foreign body: Plan Plan for cystoscopy, extraction of foreign body while under anesthesia for EGD risks, benefits, and expectations reviewed Admission and Anticipated Discharge Date Admission Date: July 07, 2023 Subjective has not yet passed the foreign body GI has decided to take him for EGD and extraction of the gastric foreign body we will use this as an opportunity to extract the bladder material as the patient has refused a bedside procedure Cr stable, vitals stable Physical Exam Constitutional: well developed and well nourished Neck: neck nontender Respiratory: normal respiratory effort; no respiratory distress and does not use accessory muscles Cardiovascular: Rate/Rhythm: regular rate Vessels: radial pulses present Extremities: no edema Gastrointestinal (Abdomen): Inspection/Auscultation: abdomen normal to inspection Percussion/Palpation: abdomen soft; abdomen nontender and no guarding Musculoskeletal: Head/Neck/Chest: normocephalic and head atraumatic Extremities: extremities normal to inspection Skin: no rashes and no lesions Trauma: no evidence of skin trauma Neurologic: awake; not obtunded Speech / Cognition: normal speech Motor/Sensory: no tremor Psychiatric: Orientation: alert and oriented x 3 Genitourinary: no CVA tenderness Lymphatic: no lymphadenopathy Results & Data Vital Signs (Past 12 Hours) Vital Signs Temp Pulse Resp BP Pulse Ox O2 Del Method 07/08/23 14:19 37.6 C H 63 18 120/70 97 Room Air 07/08/23 09:29 37.4 C 63 16 110/64 97 Room Air PG Care Time/CCT Total # of Minutes Spent Total Time Spent with Patient: Total time spent is greater than 50% in coordination of care (as documented) at patient's floor/unit and/or counseling patient: Coding Level of Care Code 33362 SUB INP/OBS CARE 2/35MIN Diagnoses Urethral foreign body T19.0XXA Encounter type: initial encounter (1) Urethral foreign body Encounter type: initial encounter Qualified Code(s): T19.0XXA - Foreign body in urethra, initial encounter
[2023-07-08] MEDS ORDERED: fentaNYL citrate PF 100 MCG/2 ML VIAL ONE (14:39)
[2023-07-08] MEDS ORDERED: MIDAZOLAM HCL 1 MG/ML 2ML VIAL ONE (14:39)
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
[2023-07-08] MEDS ORDERED: DexMEDEtomidine HCL IV 100 MCG/ML VIAL IV ONE (14:48)
[2023-07-08] MEDS ORDERED: PROMETHAZINE HCL 12.5 MG in SODIUM CHLORIDE 0.9% 50 ML IV PRN (15:18)
[2023-07-08] MEDS ORDERED: NALOXONE HCL 0.4 MG/1 ML VIAL/CARP IV PRN (15:18)
[2023-07-08] MEDS ORDERED: fentaNYL citrate PF 100 MCG/2 ML VIAL IV PRN (15:18)
[2023-07-08] MEDS ORDERED: ATROPINE SULFATE 0.1 MG/ML 10ML SYR IV PRN (15:18)
[2023-07-08] MEDS ORDERED: ePHEDrine sulfate 50 MG/ML AMP IV PRN (15:18)
[2023-07-08] MEDS ORDERED: FLUMAZENIL 0.1 MG/1 ML 10 ML VIAL IV PRN (15:18)
[2023-07-08] MEDS ORDERED: ONDANSETRON INJ 2 MG/ML 2 ML VIAL IV PRN (15:18)
--- NOTE | 2023-07-08 15:18 | Anesthesiology Consultation ---
Date of Service July 08, 2023 Assessment & Plan Chart Review Chart Review: Acceptable Risk for Surgery and Patient NOT seen in Pre Admission Testing Consults Requested none ASA ASA3 Proposed Anesthesia Anesthesia Type: General Risk / Benefits Reviewed With: PT / POA / Parent / Guardian, Accepts Plan and Informed Consent Obtained History Surgery Operation Date: 07/08/23 08:10 Proposed Procedures p Esophagogastroduodenoscopy - Ary Ascencio Jr, MD p Cystoscopy - Chacho Gorman, Height/Weight Height: 5 ft 11 in Weight: 73.9 kg Allergies Allergy/AdvReac Type Severity Reaction Status Date / Time Egg Derived Allergy Unknown SWELLING Verified 11/09/16 21:28 OF THROAT haloperidol [From Haldol] Allergy Verified 07/06/23 07:13 Medications Home Medications Medication Instructions Recorded Confirmed Last Taken No Known Home Medications 07/06/23 Unknown Active Medications Generic Name Dose Route Start Last Admin Trade Name Freq PRN Reason Stop Dose Admin Famotidine 20 mg/ Syringe 5 mls @ 2.5 mls/min 07/07/23 09:00 07/08/23 09:34 IV 08/06/23 08:59 2.5 mls/min DAILY MALENA Administration Morphine Sulfate 4 mg 07/07/23 13:06 07/08/23 10:50 Morphine Sulfate 4 Mg/Ml 1 Ml Carp\Vial IV 07/21/23 13:05 4 mg Q4H PRN Administration Pain(5+) NPO Date Last Intake of Fluids: 07/07/23 Time Last Intake of Fluids: 23:30 Date Last Intake of Solids: 07/07/23 Time Last Intake of Solids: 23:30 Exercise / Class Metabolic Activity II 4-5 Yardwork/Stairs/Walk up hill Past Anesthesia History No Hx of Anesthesia Complications and No Family Hx of Anesthesia Complications History of PONV No Hx of PONV and No Hx of Motion Sickness Social History Smoking Status: Never smoker Physical Exam Vital Signs Last Vital Signs Temp 37.6 C H 07/08/23 14:19 Pulse 63 07/08/23 14:19 Resp 18 07/08/23 14:19 BP 120/70 07/08/23 14:19 Pulse Ox 97 07/08/23 14:19 O2 Del Method Room Air 07/08/23 14:19 O2 Flow Rate 2 07/07/23 13:50 Constitutional no acute distress and not cachectic ENMT Mouth: no dentition abnormality Thyromental Distance: > or= 3.5 Finger Breadths Mallampati Class: II Neck normal visual inspection, trachea midline and + facial hair; neck extension not limited Respiratory normal respiratory effort and + respiratory distress Auscultation: lungs clear to auscultation bilaterally; breath sounds present Cardiovascular Rate/Rhythm: regular rate and regular rhythm Heart Sounds: no murmur Vessels: no carotid bruit Musculoskeletal Spine: normal cervical ROM and no pain with cervical ROM Extremities: extremities normal to inspection; full ROM of extremities Neurologic moves all extremities Motor/Sensory: no sensory deficit Psychiatric Orientation: alert and oriented x 3 Testing Laboratory Results 07/08/23 06:14 07/08/23 06:14 PT 11.4 Seconds (9.0-12.0) 07/06/23 04:58 INR 1.0 (0.9-1.1) 07/06/23 04:58 APTT 30 Seconds (21-31) 07/06/23 04:58 Urine Color [place] 07/07/23 15:32 Urine Appearance Cloudy (Clear) A 07/07/23 15:32 Urine pH 7.5 (4.5-7.5) 07/07/23 15:32 Ur Specific [place] 1.038 (1.000-1.030) H 07/07/23 15:32 Urine Protein 1+ (Negative) H 07/07/23 15:32 Urine Glucose (UA) Negative (Negative) 07/07/23 15:32 Urine Ketones 1+ (Negative) H 07/07/23 15:32 Urine Nitrite Negative (Negative) 07/07/23 15:32 Ur Leukocyte Esterase 1+ (Negative) H 07/07/23 15:32 Urine WBC (Auto) >30 /hpf (0-5) H 07/07/23 15:32 Urine RBC (Auto) >30 /hpf (0-4) H 07/07/23 15:32 U Hyaline Cast (Auto) 1-5 /lpf (0-5) 07/07/23 15:32 U Epithel Cells (Auto) 0-5 /lpf (0-5) 07/07/23 15:32 Urine Bacteria (Auto) 1+ (Negative) H 07/07/23 15:32 07/07/23 15:32 Urine Culture - Preliminary Urine,Clean Catch Pin-point growth present, reincubating.
[2023-07-08] MEDS ORDERED: ONDANSETRON INJ 2 MG/ML 2 ML VIAL ONE (15:34)
[2023-07-08] MEDS ORDERED: ROCURONIUM BROMIDE 10 MG/ML 5 ML VIAL IV ONE (15:34)
[2023-07-08] MEDS ORDERED: NEOSTIGMINE METHYLSULFATE 1 MG/ML 10ML VIAL ONE ×2 (15:34→16:48)
[2023-07-08] MEDS ORDERED: DEXAMETHASONE SOD INJ 4 MG/ML VIAL ONE (15:34)
[2023-07-08] MEDS ORDERED: LIDOCAINE 2% 2 ML VIAL/AMP(20MG/ML) INFIL ONE (15:34)
[2023-07-08] MEDS ORDERED: PROPOFOL IV EMULSION 10 MG/ML 20 ML VIAL IV ONE (15:34)
[2023-07-08] MEDS ORDERED: GLYCOPYRROLATE 0.2 MG/ML VIAL ONE ×2 (15:34→16:48)
[2023-07-08] MEDS ORDERED: SUCCINYLCHOLINE CHLORIDE 20 MG/ML 10 ML VIAL IV ONE (15:34)
--- NOTE | 2023-07-08 15:45 | Operative Report ---
PG Post Operative Report Pre & Post Diagnosis Operation Date: 07/08/23 08:10 Pre: Urethral and bladder foreign bodies Post: Urethral and bladder foreign bodies I identified the patient and participated in the time-out.: Yes Procedure Operation Date: 07/08/23 08:10 Procedure: cystoscopy, extraction of foreign bodies (x5 from bladder and urethra) Surgeon Antonio Galicia MD [employer] none Estimated Blood Loss 3 Findings Consistent with Post-Op Diagnosis scarred urethra with evidence of trauma from foreign bodies Specimens foreign bodies (catheter, 5 pieces of green plastic) Description of Procedure Patient was identified in the preoperative holding area, appropriate informed consents reviewed and completed. He was intubated in the preop area and then transported to the operating suite. After arrival he was prepped and draped in standard fashion. We performed a timeout and Dr. Ascencio began his portion of the case while simultaneously began my portion of the case from the urethral side. To begin the urological portion of the case a cystoscope was passed per urethra and I immediately encountered a green appearing plastic foreign body. Using a grasper was able to grasp the distal end of this. Of note, this has sharp corners and edges and there is already evidence of trauma to the urethra likely from placement of this foreign body. I was able to extract it without great difficulty. I then reentered and encountered a second green foreign body. This 1 was larger but able to be removed. I then was able to identify what appeared to be the distal end of a Shields catheter. I was able to grasp it withdraw the full length of the catheterapproximately 12 inches. I then entered again, I was able to inspect the full urethra at that time, he clearly has trauma to the urethra and likely had old scars which are nondilated from his material as well as the cystoscope. He has a small prostate as would be expected for age. Inspection of the bladder reveals relatively heavy trabeculation and inflammation. I was able to drain the bladder and washed out and then reentered and identified 2 additional foreign bodies within the bladder itself. Both of these were green plastic. One was quite wide but was able to be extracted through the urethra. After confirming that all 4 material had been completely removed, I elected to leave him without a Shields catheter and concluded the cystoscopic portion of the case. Dr. Martinez will dictate his note separately but was extracting into numerous pieces from the stomach. There were no complications to my portion of the case I attest to the content of the Intraoperative Record and any orders documented therein. Any exceptions are noted below.
--- NOTE | 2023-07-08 16:14 | GI REPORT ---
Patient Name: Jose Gibbs Procedure Date: 07/08/2023 1:55 PM Date of : 1990 Admit Type: Inpatient Age: 32 Gender: Male Attending MD: Ary Ascencio MD, Procedure: Upper GI endoscopy Providers: Ary Ascencio MD Referring MD: Lara Carpenter Indications: Foreign body in the stomach Medicines: General Anesthesia Complications: No immediate complications. Estimated Blood Loss: Estimated blood loss: none. Procedure: Pre-Anesthesia Assessment: - Prior to the procedure, a History and Physical was performed, and patient medications and allergies were reviewed. The patient's tolerance of previous anesthesia was also reviewed. The risks and benefits of the procedure and the sedation options and risks were discussed with the patient. All questions were answered, and informed consent was obtained. Prior Anticoagulants: The patient has taken no anticoagulant or antiplatelet agents. ASA Grade Assessment: III - A patient with severe systemic disease. After reviewing the risks and benefits, the patient was deemed in satisfactory condition to undergo the procedure. After obtaining informed consent, the endoscope was passed under direct vision. Throughout the procedure, the patient's blood pressure, pulse, and oxygen saturations were monitored continuously. The Endoscope was introduced through the mouth, and advanced to the second part of duodenum. The upper GI endoscopy was accomplished without difficulty. The patient tolerated the procedure well. Findings: The esophagus was normal. 11 10cm pieces of a bassett catheter along with a 2 cm blue plastic piece were found in the gastric fundus. Removal was accomplished with a Raptor grasping device with multiple passes into the stomach. The examined duodenum was normal. Impression: - Normal esophagus. - A gastric tube was found in the stomach. Removal was successful. - Normal examined duodenum. Recommendation: - [facility] to [facility] care. Ary Ascencio MD 07/08/2023 4:13:41 PM Note Initiated On: 07/08/2023 1:55 PM Number of Addenda: 0 I attest to the content of the Intraoperative Record and orders documented therein, exceptions below {[id number]}
--- NOTE | 2023-07-08 17:55 | Anesthesiology Progress Note ---
Date of Service July 08, 2023 Anesthesia Post Procedure Vital Signs Vital Signs: Temp Pulse Pulse Pulse Resp BP BP 07/08/23 17:39 36.8 C 70 16 115/68 07/08/23 16:50 36.6 C 55 L 12 115/56 L 07/08/23 16:45 54 L 23 109/67 07/08/23 16:37 54 L 14 113/65 07/08/23 16:28 51 L 12 111/72 07/08/23 16:18 36.5 C 54 L 12 116/66 07/08/23 14:19 37.6 C H 63 18 120/70 07/08/23 09:29 37.4 C 63 16 110/64 07/07/23 21:38 36.9 C 58 L 16 118/72 07/07/23 21:20 Pulse Ox O2 Del Method 07/08/23 17:39 98 Room Air 07/08/23 16:50 95 Room Air 07/08/23 16:45 100 Room Air 07/08/23 16:37 100 Oxymask 07/08/23 16:28 100 Mechanical Vent 07/08/23 16:18 100 Mechanical Vent 07/08/23 14:19 97 Room Air 07/08/23 09:29 97 Room Air 07/07/23 21:38 99 Room Air 07/07/23 21:20 Room Air Pain Intensity Abdomen: Pain Intensity: 8 Groin: Pain Intensity: 8 Transfer of Care Handoff Completed per policy Notes Mental Status: alert / awake / arousable Patient Amnestic to Procedure: Yes Nausea / Vomiting: adequately controlled Pain: adequately controlled Airway Patency, RR, SpO2: stable & adequate BP & HR: stable & adequate Hydration State: stable & adequate Anesthetic Complications: no major complications apparent
[2023-07-09] MEDS ORDERED: IBUPROFEN 600 MG TAB PO PRN (07:37)
[2023-07-09] MEDS ORDERED: ACETAMINOPHEN 325 MG TAB PO PRN (07:37)
[2023-07-09] MEDS: IBUPROFEN 600 MG TAB PO SCH (08:11)
[2023-07-09] MEDS: ACETAMINOPHEN 325 MG TAB PO SCH (08:11)
[2023-07-09 08:26] LABS: BUN Creatinine Ratio 17.2 (10-20); Calcium 8.8 mg/dl (8.6-10.3); Creatinine Clr Calc Pharmacy 119.2 ml/min; Est GFR (African American) 125.5 ml/min; Est GFR (Non-African American) 108.2 ml/min
[2023-07-09 09:01] LABS: Basophils # (auto) 0.01 K/uL (0.00-0.20); Basophils % (auto) 0.2 %; Eosinophils # (auto) 0.06 K/uL (0.00-0.50); Hematocrit (blood only) 38.2 % (42.0-52.0); Hemoglobin 13.6 g/dl (14.0-18.0); Immature Granulocytes # (auto) 0.01 K/uL (0.01-0.20); Immature Granulocytes % (auto) 0.2 %; Lymphocytes # (auto) 1.13 K/uL (1.20-3.40); Lymphocytes % (auto) 18.2 %; Mean Corpuscular Hemoglobin 30.3 pg (25.0-34.0); Mean Corpuscular Hgb Conc 35.6 g/dL (32.0-36.0); Mean Corpuscular Volume 85.1 fL (80.0-100.0); Mean Platelet Volume 12.4 fL (9.4-12.4); Monocytes # (auto) 0.56 K/uL (0.11-0.59); Neutrophils # (auto) 4.43 K/uL (1.40-6.50); Neutrophils % (auto) 71.4 %; Platelet Count 176 K/uL (130-400); RDW Coefficient of Variation 11.5 % (11.5-14.5); RDW Standard Deviation 35.5 fL (36.4-46.3); Red Blood Count 4.49 M/uL (4.70-6.10)
[2023-07-09] MEDS ORDERED: oxyCODONE HCL IR 5 MG TAB (IMMEDIATE RELEASE) PO PRN (09:02)
[2023-07-09] MEDS: PHENAZOPYRIDINE HCL 200 MG TAB PO PRN (11:16)
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
--- NOTE | 2023-07-12 10:49 | Pharmacy Report ---
ED Pharmacist Culture FollowUP - Culture Follow Up Note Date of Service: July 12, 2023 Notes:: FINAL urine cx results received in the ED today. Patient was admitted to [facility] under the [facility] service and has since been discharged. Culture result was forwarded to Dr Pereira for review.
== END 2023-07-09 11:40 | DRG 698 ==
LOC: EDINP 04:20 → ED 04:20 → SUATTDRO 10:14 → 3E 14:14

== ENCOUNTER 2023-08-17 22:06 | Observation (INO) ==
[2023-08-17 23:25] LABS: Basophils # (auto) 0.04 K/uL (0.00-0.20); Basophils % (auto) 0.6 %; Eosinophils # (auto) 0.04 K/uL (0.00-0.50); Eosinophils % (auto) 0.6 %; Hematocrit (blood only) 39.6 % (42.0-52.0); Hemoglobin 13.3 g/dl (14.0-18.0); Immature Granulocytes # (auto) 0.02 K/uL (0.01-0.20); Immature Granulocytes % (auto) 0.3 %; Lymphocytes # (auto) 1.33 K/uL (1.20-3.40); Lymphocytes % (auto) 20.6 %; Mean Corpuscular Hemoglobin 28.9 pg (25.0-34.0); Mean Corpuscular Hgb Conc 33.6 g/dL (32.0-36.0); Mean Corpuscular Volume 86.1 fL (80.0-100.0); Mean Platelet Volume 11.7 fL (9.4-12.4); Monocytes # (auto) 0.52 K/uL (0.11-0.59); Neutrophils # (auto) 4.52 K/uL (1.40-6.50); Neutrophils % (auto) 69.9 %; Platelet Count 198 K/uL (130-400); RDW Coefficient of Variation 12.7 % (11.5-14.5); White Blood Count 6.47 K/ul (4.8-10.8)
[2023-08-17 23:42] LABS: Alanine Aminotransferase 12 U/L (7-52); Albumin Level 4.6 gm/dl (3.4-5.0); Alkaline Phosphatase 62 U/L (34-104); Anion Gap 6 (3-11); Aspartate Aminotransferase 14 U/L (13-39); BUN Creatinine Ratio 19.2 (10-20); Bilirubin,Total 0.4 mg/dl (0.2-1.0); Blood Urea Nitrogen 15 mg/dl (6-23); Calcium 8.8 mg/dl (8.6-10.3); Carbon Dioxide 28 mmol/L (21-32); Chloride 105 mmol/L (98-107); Creatine Kinase 93 U/L (30-223); Est GFR (African American) 138.4 ml/min; Est GFR (Non-African American) 119.4 ml/min; Globulin 2.3 gm/dl (2.5-4.0); Glucose 88 mg/dl (70-99(Fasting)); Potassium 3.7 mmol/L (3.5-5.1); Sodium 139 mmol/L (136-145); Total Protein 6.9 gm/dl (6.0-8.3)
[2023-08-17] MEDS: OPTIRAY 320 100ml IV ONE (23:43)
[2023-08-17 23:51] LABS: Acetaminophen < 3 ug/ml (10-30); Salicylate < 3.0 mg/dl (3.0-30)
--- NOTE | 2023-08-18 00:42 | Emergency Department Note ---
History of Present Illness General Chief complaint: Foreign Body Stated complaint: SWALLOWED MULTIPLE FOREIGN BODIES Time Seen by Provider: 08/17/23 22:29 History of Present Illness Maximum Pain Intensity: 7 This 32-year-old prisoner presents the ER stating he swallowed multiple pens plastic shrestha toothbrushes a razor and multiple pills. He will not tell me what type of pills he took. He is currently in solitary confinement though. This is recurrent for the patient. He also states he put 2 pins 37 miguel and half a razor up his penis. No rectal foreign bodies per patient. Patient denies chest pain, dyspnea, abdominal pain, fever, chills or any other medical complaints. He states he did this because he wants to . Home Medications Medication Instructions Recorded Confirmed Type acetaminophen-caffeine 500 mg-65 1 tab PO Q12H PRN Pain 07/22/23 08/10/23 History mg tablet (Excedrin Tension Headache) Allergies Allergy/AdvReac Type Severity Reaction Status Date / Time haloperidol [From Haldol] Allergy Severe swelling Verified 08/10/23 08:51 of throat Egg Derived Allergy Unknown SWELLING Verified 08/10/23 08:50 OF THROAT Past Med/Surg History Medical History Foreign body in urethra Per [place] discharge summary 07/09/23- patient pulled out bassett and ate 5 ft of catheter tubing and also placed pieces of tubing back into urethra (EGD/cysto done 07/08/23 to remove foreign bodies) - Pt presented to [place] ED 07/10/23- reinserted another FB into urthetra - reason for upcoming procedure Blindness of left eye Seborrhea capitis Fracture of orbital floor left side - 06/26/23- seen at [facility] ED for "orbital blowout fracture"- following with ophthalmology as outpatient Fracture of nasal bone Gastritis Antisocial personality disorder Surgical History No history of previous surgery not listed on [facility] record Social History Smoking Status: Never smoker Preferred Language: Macedonian Communication Ability: Effective Visual Impairment: Blindness Emt/Dispatcher Required: No Beliefs That Will Affect Care: None Current Living Situation: Other Current Living Situation Comment: Inmate at [facility] Feels Safe at Home: Yes Assistive Devices: None Review of Systems A total of 10 systems reviewed and were otherwise negative Physical Exam Vital Signs Vital Signs - 24 hr 08/17/23 22:12 08/17/23 22:47 08/18/23 00:22 Temperature 36.2 C L Temperature Source Temporal Artery Scan Pulse Rate 66 66 Pulse Rate [Finger] 67 Pulse Rhythm Regular Pulse Rhythm [Finger] Regular Pulse Strength [Finger] Normal Respiratory Rate 16 17 16 Respiratory Effort / Characteristics Non-Labored Spontaneous Respiratory Depth Normal Respiratory Pattern Regular Blood Pressure 118/72 Blood Pressure [Right Arm] 123/92 Blood Pressure Mean 87 Blood Pressure Mean [Right Arm] 102 Blood Pressure Position [Right Arm] Sitting Pulse Oximetry 98 98 98 Oxygen Delivery Method Room Air Room Air Room Air Sepsis Recent Fever Within 48 Hours No Sepsis New/Unexplained Change in Mental Status No Sepsis Action Taken by Nursing No Action Required 08/18/23 01:13 Temperature Temperature Source Pulse Rate Pulse Rate [Finger] 64 Pulse Rhythm Pulse Rhythm [Finger] Regular Pulse Strength [Finger] Normal Respiratory Rate 15 Respiratory Effort / Characteristics Non-Labored Spontaneous Respiratory Depth Normal Respiratory Pattern Regular Blood Pressure Blood Pressure [Right Arm] 146/85 H Blood Pressure Mean Blood Pressure Mean [Right Arm] 105 Blood Pressure Position [Right Arm] Lying Pulse Oximetry 98 Oxygen Delivery Method Room Air Sepsis Recent Fever Within 48 Hours Sepsis New/Unexplained Change in Mental Status Sepsis Action Taken by Nursing VITALS: Vitals are noted on the nurse's note and reviewed by myself. Vital signs stable. GENERAL: White male in [facility] with correctional officers present, in no acute distress, nondiaphoretic, well-developed well-nourished. SKIN: Capillary reflex less than 2 seconds. HEENT: Normocephalic. PERRLA. EOMI. Nares patent. Mucous membranes moist. Neck is supple without nuchal rigidity. HEART: Regular rate and rhythm LUNGS: Clear to auscultation bilaterally without wheezes, rales or rhonchi. No retractions or accessory muscle use. ABDOMEN: Positive bowel sounds x 4. Normal tympanic percussion. Soft, nontender, without masses or organomegaly. Gallardo sign negative. No guarding or rebound tenderness. no CVA tenderness MUSCULOSKELETAL: No gross musculoskeletal defects. NEURO: Patient was alert and oriented to person place and time. No focal neurological deficits. Course Administered Medications Discontinued Medications Ioversol (Optiray 320 100ml) 100 ml IV ONCE ONE Stop: 08/17/23 23:44 Last Admin: 08/17/23 23:43 Dose: 93 ml Documented By: JUAN PABLO Medical Decision Making Medical Records Attestation: I reviewed the patient's medical records. Home Medications Current Medication List: was personally reviewed by me Laboratory Data Attestation: I reviewed the patient's lab results. 08/17/23 22:58 08/17/23 22:58 Lab Results 08/17/23 08/17/23 Range/Units 22:58 23:55 WBC 6.47 (4.8-10.8) K/ul RBC 4.60 L (4.70-6.10) M/uL Hgb 13.3 L (14.0-18.0) g/dl Hct 39.6 L (42.0-52.0) % MCV 86.1 (80.0-100.0) fL MCH 28.9 (25.0-34.0) pg MCHC 33.6 (32.0-36.0) g/dL RDW Std Deviation 40.0 (36.4-46.3) fL RDW Coeff of Tiffany 12.7 (11.5-14.5) % Plt Count 198 (130-400) K/uL MPV 11.7 (9.4-12.4) fL Immature Gran % (Auto) 0.3 % Neut % (Auto) 69.9 % Lymph % (Auto) 20.6 % Branch % (Auto) 8.0 % Eos % (Auto) 0.6 % Baso % (Auto) 0.6 % Neut # (Auto) 4.52 (1.40-6.50) K/uL Lymph # (Auto) 1.33 (1.20-3.40) K/uL Branch # (Auto) 0.52 (0.11-0.59) K/uL Eos # (Auto) 0.04 (0.00-0.50) K/uL Baso # (Auto) 0.04 (0.00-0.20) K/uL Immature Gran # (Auto) 0.02 (0.01-0.20) K/uL Sodium 139 (136-145) mmol/L Potassium 3.7 (3.5-5.1) mmol/L Chloride 105 (98-107) mmol/L Carbon Dioxide 28 (21-32) mmol/L Anion Gap 6 (3-11) BUN 15 (6-23) mg/dl Creatinine 0.78 (0.6-1.4) mg/dl Est Cr Clr Drug Dosing Not Reportable Est GFR ( Amer) 138.4 ml/min Est GFR (Non-Af Amer) 119.4 ml/min BUN/Creatinine Ratio 19.2 (10-20) Glucose 88 (70-99(Fasting)) mg/dl Calcium 8.8 (8.6-10.3) mg/dl Total Bilirubin 0.4 (0.2-1.0) mg/dl AST 14 (13-39) U/L ALT 12 (7-52) U/L Alkaline Phosphatase 62 (34-104) U/L Total Creatine Kinase 93 (30-223) U/L Total Protein 6.9 (6.0-8.3) gm/dl Albumin 4.6 (3.4-5.0) gm/dl Globulin 2.3 L (2.5-4.0) gm/dl Albumin/Globulin Ratio 2.0 (0.9-2) Salicylates < 3.0 L (3.0-30) mg/dl Acetaminophen < 3 L (10-30) ug/ml Ethyl Alcohol mg/dL < 10.0 (<10.0) mg/dl SARS-CoV-2, RNA, NAAT POSITIVE A (NEGATIVE) Imaging Data Attestation: I personally reviewed and interpreted this imaging study as follows: Radiologist's Impression: Abdomen/Pelvis CT 08/17/23 22:47 Exam(s): CT ABDOMEN + PELVIS With Contrast IV Amt: 93 ml optiray 320 EXAM: CT Abdomen and Pelvis With Intravenous Contrast CLINICAL HISTORY: Reason for exam: ? swallowed FB/perforation. TECHNIQUE: Axial computed tomography images of the abdomen and pelvis with intravenous contrast. CTDI is 11 mGy and DLP is 555.44 mGy-cm. Automated exposure control was utilized for the study. A dose lowering technique was utilized adhering to the principles of ALARA. CONTRAST: Patient received 93 ml optiray 320 of IV contrast COMPARISON: CT Abdomen Pelvis dated 07/06/23 FINDINGS: Lung bases: Unremarkable. No mass. No consolidation. ABDOMEN: Liver: Unremarkable. No mass. Gallbladder and bile ducts: Unremarkable. No calcified stones. No ductal dilation. Pancreas: Unremarkable. No mass. No ductal dilation. Spleen: Unremarkable. No splenomegaly. Adrenals: Unremarkable. No mass. Kidneys and ureters: Unremarkable. No solid mass. No hydronephrosis. Stomach and bowel: Cluster of linear/tubular foreign bodies within the proximal stomach. No obstruction. No mucosal thickening. PELVIS: Appendix: Normal appendix. Bladder: Unremarkable. No mass. Reproductive: Similar foreign body in the penis, partially visualized on this study. ABDOMEN and PELVIS: Intraperitoneal space: Unremarkable. No free air. No significant fluid collection. Bones/joints: No acute fracture. No dislocation. Soft tissues: Unremarkable. Vasculature: Unremarkable. No abdominal aortic aneurysm. Lymph nodes: Unremarkable. No enlarged lymph nodes. IMPRESSION: 1. Cluster of linear/tubular foreign bodies within the proximal stomach. No evidence of perforation. 2. Similar foreign body in the penis, partially visualized on this study. Electronically signed by: Chaka Del Rio M.D. 08/18/23 00:51 AM [facility] Narrative Prior records/ancillary studies reviewed. Triage Nursing notes reviewed. Additional history obtained from correctional officers The patient's history was concerning for swallowing multiple foreign bodies and putting a foreign body of his penis and reportedly taking multiple pills Differential diagnosis: Etiologies such as attention seeking behavior, behavioral health, toxicologic, infection, hypoglycemia, electrolyte abnormalities, cardiac sources, intracerebral event, neurologic, as well as others were entertained. Physical examination: The patient had normal sensorium. No trauma noted. ER treatment provided: IV NSS 1 L bolus Suicidal precautions implemented seizure precautions implemented An order was placed for continuous cardiac monitoring. The monitor shows a rate of 60-100 with a sinus rhythm per my interpretation. On reassessment the patient was stable and improving. Diagnostic interpretation by me: ECG: ordered for overdose The electrocardiogram was negative for pathologic change. There was no QRS widening or interval prolongation.Normal sinus, normal intervals, no acute ST-T wave changes. Impression normal sinus rhythm independently interpreted by myself The labs Independently Interpreted by myself revealed mild anemia, no worrisome leukocytosis, negative Tylenol and salicylate level. Negative alcohol level. Positive COVID Imaging studies: Chest x-ray concerning for foreign body in the stomach per my independent interpretation Pelvis x-ray concerning for foreign body in the penis per my independent interpretation CTA as above Consultation: A consultation was placed with GI Dr. Oconnor. He will come in and evaluate the patient. A consultation was placed with urology and DELBERT Carlin evaluated the patient. A consultation was placed with the hospitalist. The case was discussed and diagnostics were reviewed. The patient was evaluated in the ER for further treatment. This appears to be consistent with reportedly ingesting pills with unknown substance. Patient also swallowed multiple foreign bodies and has put a foreign body up his penis. GI and medicine was consulted. Patient admitted to the medical service. GI and urology will see the patient in the morning. By the evaluation outlined above emergent etiologies such as infection, hypoglycemia, electrolyte abnormalities, cardiac sources, intracerebral event, neurologic,as well as others were deemed relatively unlikely. The pt informed about the findings as listed above. All questions were answered and pleased with the treatment. The chart was completed utilizing [employer] Speech voice recognition software. Grammatical errors, random word insertions, pronoun errors, and incomplete sentences are an occassional consequence of this system due to software limitations, ambient noise, and hardware issues. Any formal questions or concerns about the content, text, or information contained within the body of this dictation should be directly addressed to the physician assistant technician for clarification. Impression & Plan Urethral foreign body, Swallowed foreign body, Overdose Discharge Plan Visit Data Chief Complaint: Foreign Body Stated Complaint: SWALLOWED MULTIPLE FOREIGN BODIES ED Provider: Jaylin Martinez ED Midlevel Provider: Isamar Clark Discharge Problem: Urethral foreign body, Swallowed foreign body, Overdose Patient Disposition: Admitted As Inpatient Condition: Good Forms Stand Alone Forms: Fungos Prescriptions Prescriptions: No Action Excedrin Tension Headache 500-65 mg Tablet 1 tab PO Q12H PRN (Reason: Pain) Referrals Referrals: Ronal WALL [Primary Care Provider] - Discharge Problem: Urethral foreign body Qualifiers: Encounter type: initial encounter Qualified Code(s): T19.0XXA - Foreign body in urethra, initial encounter Swallowed foreign body Qualifiers: Encounter type: initial encounter Qualified Code(s): T18.9XXA - Foreign body of alimentary tract, part unspecified, initial encounter
--- NOTE | 2023-08-18 00:52 | CT Scan Report ---
Exam(s): CT ABDOMEN + PELVIS With Contrast IV Amt: 93 ml optiray 320 EXAM: CT Abdomen and Pelvis With Intravenous Contrast CLINICAL HISTORY: Reason for exam: ? swallowed FB/perforation. TECHNIQUE: Axial computed tomography images of the abdomen and pelvis with intravenous contrast. CTDI is 11 mGy and DLP is 555.44 mGy-cm. Automated exposure control was utilized for the study. A dose lowering technique was utilized adhering to the principles of ALARA. CONTRAST: Patient received 93 ml optiray 320 of IV contrast COMPARISON: CT Abdomen Pelvis dated 07/06/23 FINDINGS: Lung bases: Unremarkable. No mass. No consolidation. ABDOMEN: Liver: Unremarkable. No mass. Gallbladder and bile ducts: Unremarkable. No calcified stones. No ductal dilation. Pancreas: Unremarkable. No mass. No ductal dilation. Spleen: Unremarkable. No splenomegaly. Adrenals: Unremarkable. No mass. Kidneys and ureters: Unremarkable. No solid mass. No hydronephrosis. Stomach and bowel: Cluster of linear/tubular foreign bodies within the proximal stomach. No obstruction. No mucosal thickening. PELVIS: Appendix: Normal appendix. Bladder: Unremarkable. No mass. Reproductive: Similar foreign body in the penis, partially visualized on this study. ABDOMEN and PELVIS: Intraperitoneal space: Unremarkable. No free air. No significant fluid collection. Bones/joints: No acute fracture. No dislocation. Soft tissues: Unremarkable. Vasculature: Unremarkable. No abdominal aortic aneurysm. Lymph nodes: Unremarkable. No enlarged lymph nodes. IMPRESSION: 1. Cluster of linear/tubular foreign bodies within the proximal stomach. No evidence of perforation. 2. Similar foreign body in the penis, partially visualized on this study. Electronically signed by: Chaka Del Rio M.D. 08/18/23 00:51 AM
--- NOTE | 2023-08-18 02:09 | History & Physical Report ---
Date of Service August 18, 2023 Assessment & Plan (1) Overdose: (2) Swallowed foreign body: (3) Urethral foreign body: (4) Foreign body ingestion: Plan Intentional ingestion of multiple foreign bodies- CT of abdomen and pelvis notes multiple foreign bodies in the stomach NPO Consult gastroenterology for possible EGD Ceftriaxone 2 g IV every 24 hours Urethral foreign body- Implanted by patient Urology has been consulted, and will consider cystoscopy in the a.m. Hold on IV fluids for now Ceftriaxone 2 g IV every 24 hours Pain control- Acetaminophen 1 g IV every 8 hours as needed for mild pain or fever History of Present Illness Chief Complaint: The patient is brought to the emergency department from the half-way, after reportedly swallowing multiple pens, plastic spoons, toothbrushes, a razor and m ultiple unknown pills. He also inserted plastic, 2 pins, 37 miguel half a razor and up his penis. Primary Care Provider: MAE Villeda The patient is a 32-year-old resident of [facility], who presents to the emergency department with similar presentation in the past as noted above. CT scan abdomen pelvis notes multiple foreign bodies in the stomach, and foreign body noted in penis. Gastroenterology Dr. Dangelo is going to see the patient this evening, for possible endoscopy. Urology has assessed the patient in the emerge ncy department, and will determine if cystoscopy will be done in the a.m. Allergies Allergy/AdvReac Type Severity Reaction Status Date / Time haloperidol [From Haldol] Allergy Severe swelling Verified 08/10/23 08:51 of throat Egg Derived Allergy Unknown SWELLING Verified 08/10/23 08:50 OF THROAT Home Medications Medication Instructions Recorded Confirmed Type acetaminophen-caffeine 500 mg-65 1 tab PO Q12H PRN Pain 07/22/23 08/10/23 History mg tablet (Excedrin Tension Headache) Past Med/Surg History Medical History Foreign body in urethra Per [facility] discharge summary 07/09/23- patient pulled out bassett and ate 5 ft of catheter tubing and also placed pieces of tubing back into urethra (EGD/cysto done 07/08/23 to remove foreign bodies) - Pt presented to [facility] ED 07/10/23- reinserted another FB into urthetra - reason for upcoming procedure Blindness of left eye Seborrhea capitis Fracture of orbital floor left side - 06/26/23- seen at [facility] ED for "orbital blowout fracture"- following with ophthalmology as outpatient Fracture of nasal bone Gastritis Antisocial personality disorder Surgical History No history of previous surgery not listed on [facility] record Social History Smoking Status: Never smoker Preferred Language: Divehi Communication Ability: Effective Visual Impairment: Blindness 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 Beliefs That Will Affect Care: None Current Living Situation: Other Current Living Situation Comment: Inmate at [facility] Feels Safe at Home: Yes Assistive Devices: None Review of Systems Review of Systems: The patient denies chest pain, palpitations, shortness of breath, dyspnea on exertion, cough, lower extremity swelling, sore throat, fevers, chills, sweats, vomiting, diarrhea , constipation, blood in urine or stool, lightheadedness, dizziness, headache, memory loss, loss of consciousness, rash, numbness or tingling in arms or legs, generalized arthralgias or myalgias, back or neck pain, or night sweats. The review of systems is otherwise negative other than for that already noted above, and at least 10 systems have been reviewed. Physical Exam Physical Exam: The patient is awake, alert and oriented 3, well developed and well nourished, normocephalic and atraumatic, lying in bed and in no acute distress. HEENT--PERRL, EOMI, mucous membranes and oropharynx normal Neck--supple. No JVD. No bruits. Thyroid normal, trachea midline, no adenopathy. Heart--normal S1 and S2. No murmurs, rubs or gallops. Lungs--clear bilaterally, no respiratory distress, no accessory muscle use. Abdomen--normal bowel sounds and soft. Nontender. Nondistended, no hernias or masses, no organomegaly. Extremities--No edema. Dermatologic--normal skin turgor, normal color, no abnormal lymph nodes, no rash. Neurologic--cranial nerves II through XII grossly intact. Rheumatologic--normal range of motion. Psychiatric--normal affect. Results & Data Results & Data Vital Signs (Past 12 Hours) Vital Signs Temp Pulse Pulse Resp BP BP Pulse Ox 08/18/23 01:13 64 15 146/85 H 98 08/18/23 00:22 67 16 123/92 98 08/17/23 22:47 66 17 98 08/17/23 22:12 36.2 C L 66 16 118/72 98 O2 Del Method 08/18/23 01:13 Room Air 08/18/23 00:22 Room Air 08/17/23 22:47 Room Air 08/17/23 22:12 Room Air Laboratory Results Laboratory Results WBC 6.47 K/ul (4.8-10.8) 08/17/23 22:58 RBC 4.60 M/uL (4.70-6.10) L 08/17/23 22:58 Hgb 13.3 g/dl (14.0-18.0) L 08/17/23 22:58 POC Hgb 13.6 g/dl (14.0-18.0) L 08/17/23 23:03 Hct 39.6 % (42.0-52.0) L 08/17/23 22:58 POC Hct 40 % (42-52) L 08/17/23 23:03 MCV 86.1 fL (80.0-100.0) 08/17/23 22:58 MCH 28.9 pg (25.0-34.0) 08/17/23 22:58 MCHC 33.6 g/dL (32.0-36.0) 08/17/23 22:58 RDW Std Deviation 40.0 fL (36.4-46.3) 08/17/23 22:58 RDW Coeff of Tiffany 12.7 % (11.5-14.5) 08/17/23 22:58 Plt Count 198 K/uL (130-400) 08/17/23 22:58 MPV 11.7 fL (9.4-12.4) 08/17/23 22:58 Immature Gran % (Auto) 0.3 % 08/17/23 22:58 Neut % (Auto) 69.9 % 08/17/23 22:58 Lymph % (Auto) 20.6 % 08/17/23 22:58 Snyder % (Auto) 8.0 % 08/17/23 22:58 Eos % (Auto) 0.6 % 08/17/23 22:58 Baso % (Auto) 0.6 % 08/17/23 22:58 Neut # (Auto) 4.52 K/uL (1.40-6.50) 08/17/23 22:58 Lymph # (Auto) 1.33 K/uL (1.20-3.40) 08/17/23 22:58 Snyder # (Auto) 0.52 K/uL (0.11-0.59) 08/17/23 22:58 Eos # (Auto) 0.04 K/uL (0.00-0.50) 08/17/23 22:58 Baso # (Auto) 0.04 K/uL (0.00-0.20) 08/17/23 22:58 Immature Gran # (Auto) 0.02 K/uL (0.01-0.20) 08/17/23 22:58 POC Sodium 141 mmol/L (135-144) 08/17/23 23:03 Sodium 139 mmol/L (136-145) 08/17/23 22:58 POC Potassium 3.6 mmol/L (3.3-5.0) 08/17/23 23:03 Potassium 3.7 mmol/L (3.5-5.1) 08/17/23 22:58 POC Chloride 101 mmol/L (101-112) 08/17/23 23:03 Chloride 105 mmol/L (98-107) 08/17/23 22:58 Carbon Dioxide 28 mmol/L (21-32) 08/17/23 22:58 POC Total CO2 29 mmol/L (24-31) 08/17/23 23:03 Anion Gap 6 (3-11) 08/17/23 22:58 POC Anion Gap 16.0 mmol/L (16-25) 08/17/23 23:03 POC BUN 14 mg/dl (7-18) 08/17/23 23:03 BUN 15 mg/dl (6-23) 08/17/23 22:58 Creatinine 0.78 mg/dl (0.6-1.4) 08/17/23 22:58 POC Creatinine 0.8 mg/dl (0.6-1.3) 08/17/23 23:03 Est Cr Clr Drug Dosing Not Reportable 08/17/23 22:58 Est GFR ( Amer) 138.4 ml/min 08/17/23 22:58 Est GFR (Non-Af Amer) 119.4 ml/min 08/17/23 22:58 BUN/Creatinine Ratio 19.2 (10-20) 08/17/23 22:58 Glucose 88 mg/dl (70-99(Fasting)) 08/17/23 22:58 POC Glucose (other) 89 mg/dl (70-99) 08/17/23 23:03 Calcium 8.8 mg/dl (8.6-10.3) 08/17/23 22:58 POC Ioniz Calcium Janet 1.15 mmol/l (1.12-1.32) 08/17/23 23:03 Total Bilirubin 0.4 mg/dl (0.2-1.0) 08/17/23 22:58 AST 14 U/L (13-39) 08/17/23 22:58 ALT 12 U/L (7-52) 08/17/23 22:58 Alkaline Phosphatase 62 U/L (34-104) 08/17/23 22:58 Total Creatine Kinase 93 U/L (30-223) 08/17/23 22:58 Total Protein 6.9 gm/dl (6.0-8.3) 08/17/23 22:58 Albumin 4.6 gm/dl (3.4-5.0) 08/17/23 22:58 Globulin 2.3 gm/dl (2.5-4.0) L 08/17/23 22:58 Albumin/Globulin Ratio 2.0 (0.9-2) 08/17/23 22:58 Salicylates < 3.0 mg/dl (3.0-30) L 08/17/23 22:58 Acetaminophen < 3 ug/ml (10-30) L 08/17/23 22:58 Ethyl Alcohol mg/dL < 10.0 mg/dl (<10.0) 08/17/23 22:58 SARS-CoV-2, RNA, NAAT POSITIVE (NEGATIVE) A 08/17/23 23:55 Impressions Abdomen/Pelvis CT 08/17/23 22:47 Exam(s): CT ABDOMEN + PELVIS With Contrast IV Amt: 93 ml optiray 320 EXAM: CT Abdomen and Pelvis With Intravenous Contrast CLINICAL HISTORY: Reason for exam: ? swallowed FB/perforation. TECHNIQUE: Axial computed tomography images of the abdomen and pelvis with intravenous contrast. CTDI is 11 mGy and DLP is 555.44 mGy-cm. Automated exposure control was utilized for the study. A dose lowering technique was utilized adhering to the principles of ALARA. CONTRAST: Patient received 93 ml optiray 320 of IV contrast COMPARISON: CT Abdomen Pelvis dated 07/06/23 FINDINGS: Lung bases: Unremarkable. No mass. No consolidation. ABDOMEN: Liver: Unremarkable. No mass. Gallbladder and bile ducts: Unremarkable. No calcified stones. No ductal dilation. Pancreas: Unremarkable. No mass. No ductal dilation. Spleen: Unremarkable. No splenomegaly. Adrenals: Unremarkable. No mass. Kidneys and ureters: Unremarkable. No solid mass. No hydronephrosis. Stomach and bowel: Cluster of linear/tubular foreign bodies within the proximal stomach. No obstruction. No mucosal thickening. PELVIS: Appendix: Normal appendix. Bladder: Unremarkable. No mass. Reproductive: Similar foreign body in the penis, partially visualized on this study. ABDOMEN and PELVIS: Intraperitoneal space: Unremarkable. No free air. No significant fluid collection. Bones/joints: No acute fracture. No dislocation. Soft tissues: Unremarkable. Vasculature: Unremarkable. No abdominal aortic aneurysm. Lymph nodes: Unremarkable. No enlarged lymph nodes. IMPRESSION: 1. Cluster of linear/tubular foreign bodies within the proximal stomach. No evidence of perforation. 2. Similar foreign body in the penis, partially visualized on this study. Electronically signed by: Chaka Del Rio M.D. 08/18/23 00:51 AM Code Status & VTE Plan Code Status Full code VTE Prophylaxis Plan VTE Prophylaxis will be ordered: Yes PG Care Time/CCT Total # of Minutes Spent Total Time Spent with Patient: Total time spent is greater than 50% in coordination of care (as documented) at patient's floor/unit and/or counseling patient: Coding Level of Care Code 86193 INT INP/OBS CARE 2/55MIN Diagnoses Overdose T50.901A Swallowed foreign body T18.9XXA Encounter type: initial encounter Urethral foreign body T19.0XXA Encounter type: initial encounter (2) Swallowed foreign body Encounter type: initial encounter Qualified Code(s): T18.9XXA - Foreign body of alimentary tract, part unspecified, initial encounter (3) Urethral foreign body Encounter type: initial encounter Qualified Code(s): T19.0XXA - Foreign body in urethra, initial encounter
--- NOTE | 2023-08-18 02:20 | Anesthesiology Consultation ---
Date of Service August 18, 2023 Assessment & Plan Chart Review Chart Review: Acceptable Risk for Surgery Consults Requested none ASA ASA2E Proposed Anesthesia Anesthesia Type: General Risk / Benefits Reviewed With: PT / POA / Parent / Guardian, Accepts Plan and Informed Consent Obtained History Height/Weight Height: 5 ft 11 in Weight: 78.7 kg Allergies Allergy/AdvReac Type Severity Reaction Status Date / Time haloperidol [From Haldol] Allergy Severe swelling Verified 08/10/23 08:51 of throat Egg Derived Allergy Unknown SWELLING Verified 08/10/23 08:50 OF THROAT Medications Home Medications Medication Instructions Recorded Confirmed Last Taken acetaminophen-caffeine 500 mg-65 1 tab PO Q12H PRN Pain 07/22/23 08/10/23 08/07/23 mg tablet (Excedrin Tension Headache) NPO Date Last Intake of Fluids: 08/17/23 Time Last Intake of Fluids: 20:00 Date Last Intake of Solids: 08/17/23 Time Last Intake of Solids: 20:00 Past Medical History Medical History Foreign body in urethra Per [facility] discharge summary 07/09/23- patient pulled out bassett and ate 5 ft of catheter tubing and also placed pieces of tubing back into urethra (EGD/cysto done 07/08/23 to remove foreign bodies) - Pt presented to [facility] ED 07/10/23- reinserted another FB into urthetra - reason for upcoming procedure Blindness of left eye Seborrhea capitis Fracture of orbital floor left side - 06/26/23- seen at [facility] ED for "orbital blowout fracture"- following with ophthalmology as outpatient Fracture of nasal bone Gastritis Antisocial personality disorder Exercise / Class Metabolic Activity II 4-5 Yardwork/Stairs/Walk up hill Past Surgical History Surgical History No history of previous surgery not listed on [facility] record Past Anesthesia History No Hx of Anesthesia Complications and No Family Hx of Anesthesia Complications History of PONV No Hx of PONV and No Hx of Motion Sickness Social History Smoking Status: Never smoker Physical Exam Vital Signs Last Vital Signs Temp 97.2 F L 08/17/23 22:12 Pulse 64 08/18/23 01:13 Resp 15 08/18/23 01:13 BP 146/85 H 08/18/23 01:13 Pulse Ox 98 08/18/23 01:13 O2 Del Method Room Air 08/18/23 01:13 ENMT Mouth: + chipped teeth Thyromental Distance: > or= 3.5 Finger Breadths Mallampati Class: II Neck normal visual inspection Respiratory normal respiratory effort Auscultation: lungs clear to auscultation bilaterally Cardiovascular Rate/Rhythm: regular rate and regular rhythm Testing Laboratory Results 08/17/23 22:58 08/17/23 22:58
--- NOTE | 2023-08-18 02:25 | Gastrointestinal Consultation ---
Date of Consultation August 18, 2023 Assessment & Plan (1) Swallowed foreign body: Plan for EGD given the issue of likely swallowed razor blade Defer urethral plan to Urology Patient is covid positive and will be under respiratory precautions History of Present Illness Reason for Consultation: Ingestion of foreign body History of Present Illness This is a 32-year-old gentleman who was incarcerated. Habitually swallows toothbrushes, and inserts foreign objects up his urethra. Today he stated he swallowed mulitple objects including a razor blade, as well as multiple "pills" I am not sure how he had access to the medication as well as the issues with recurrently swallowing objects Denies pain, CT scan reveals multiple radioopaque objects in the stomach. Allergies Allergy/AdvReac Type Severity Reaction Status Date / Time haloperidol [From Haldol] Allergy Severe swelling Verified 08/10/23 08:51 of throat Egg Derived Allergy Unknown SWELLING Verified 08/10/23 08:50 OF THROAT Home Medications Medication Instructions Recorded Confirmed Type acetaminophen-caffeine 500 mg-65 1 tab PO Q12H PRN Pain 07/22/23 08/10/23 History mg tablet (Excedrin Tension Headache) Patient History Medical History Foreign body in urethra Per [facility] discharge summary 07/09/23- patient pulled out bassett and ate 5 ft of catheter tubing and also placed pieces of tubing back into urethra (EGD/cysto done 07/08/23 to remove foreign bodies) - Pt presented to [facility] ED 07/10/23- reinserted another FB into urthetra - reason for upcoming procedure Blindness of left eye Seborrhea capitis Fracture of orbital floor left side - 06/26/23- seen at [facility] ED for "orbital blowout fracture"- following with ophthalmology as outpatient Fracture of nasal bone Gastritis Antisocial personality disorder Surgical History No history of previous surgery not listed on [facility] record Social History Smoking Status: Never smoker Preferred Language: Lao Communication Ability: Effective Visual Impairment: Blindness 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 Beliefs That Will Affect Care: None Current Living Situation: Other Current Living Situation Comment: Inmate at [facility] Feels Safe at Home: Yes Assistive Devices: None Physical Exam Constitutional: WD/WN, vitals as above Cardiovascular: RRR, no murmur, no edema Gastrointestinal (Abdomen): normal bowel sounds, soft, nontender, no hepatosplenomegaly Results & Data Vital Signs (Past 12 Hours) Vital Signs Temp Pulse Pulse Resp BP BP Pulse Ox 08/18/23 01:13 64 15 146/85 H 98 08/18/23 00:22 67 16 123/92 98 08/17/23 22:47 66 17 98 08/17/23 22:12 36.2 C L 66 16 118/72 98 O2 Del Method 08/18/23 01:13 Room Air 08/18/23 00:22 Room Air 08/17/23 22:47 Room Air 08/17/23 22:12 Room Air (1) Swallowed foreign body Encounter type: initial encounter Qualified Code(s): T18.9XXA - Foreign body of alimentary tract, part unspecified, initial encounter
[2023-08-18] MEDS ORDERED: PROPOFOL IV EMULSION 10 MG/ML 20 ML VIAL IV ONE ×2 (02:26→08:38)
[2023-08-18] MEDS ORDERED: SUCCINYLCHOLINE CHLORIDE 20 MG/ML 10 ML VIAL IV ONE ×2 (02:26→08:38)
[2023-08-18] MEDS ORDERED: LIDOCAINE 2% 2 ML VIAL/AMP(20MG/ML) INFIL ONE ×2 (02:26→08:37)
--- NOTE | 2023-08-18 02:28 | Urology Consultation ---
Date of Consultation August 18, 2023 Assessment & Plan (1) Urethral foreign body: I discussed with the treating clinician the emergency department as well as the admitting hospitalist service. The patient is being admitted to the hospitalist service due to his claim that he ingested several pills and he will be observed as though he has an overdose. We will leave the treatment of this condition to the hospitalist service. He is also undergoing an EGD by the gastroenterology service due to his ingested materials. At the present time the patient is not in renal failure and therefore there is no urgency for patient undergo cystoscopic intervention mention. Would recommend keeping the patient n.p.o. and following serial labs. A determination will be made how to deal with patient's urethral foreign body at a later time. History of Present Illness Reason for Consultation: Urethral foreign body History of Present Illness This is a 32-year-old male who presented to the emergency department after ingesting several foreign bodies as well as inserting a foreign body into his urethra. The patient says that he ingested pills of which he is uncertain what kind they were, half of a razor blade, several pens, and several spoons. He also notes that he stuck a pen into his urethra and also claims he stuck additional foreign bodies into his urethra. At the present time the patient says he has some generalized abdominal pain and some generalized pain in his penis. He denies any fevers, shakes, or chills. He does not offer any other complaints. It is nowhere the mention that the patient does have a similar history of ingesting foreign bodies and inserting foreign bodies into his urethra. Most recently he was seen by Dr. Galicia on 08/10/2023he had to undergo cystoscopy with extraction of a foreign body. Since arrival to the hospital the patient has had labs and imaging which I independent reviewed. An x-ray of the pelvis showed a foreign body in the po sition of the urethra. A chest x-ray did not show any free air under the diaphragm the patient had several metallic objects suspected in the body of the stomach. A CT scan of the abdomen pelvis showed the patient had a cluster of foreign bodies in the proximal stomach. He also had a foreign body in the penis. Labs include a CBC her white blood cell count platelet count were normal. Hemoglobin and hematocrit were 13.3 and 39.6. Platelet count is normal. Chemistry profile showed sodium, potassium, BUN, and creatinine were all normal. There is no elevation of patient's LFTs. Patient did have a toxicology send where he had salicylate levels as well as acetaminophen levels that were nonelevated. Ethyl alcohol level was nonelevated. A COVID test is positive. At the time my interview he was resting comfortably in bed he was no distress. Allergies Allergy/AdvReac Type Severity Reaction Status Date / Time haloperidol [From Haldol] Allergy Severe swelling Verified 08/10/23 08:51 of throat Egg Derived Allergy Unknown SWELLING Verified 08/10/23 08:50 OF THROAT Home Medications Medication Instructions Recorded Confirmed Type acetaminophen-caffeine 500 mg-65 1 tab PO Q12H PRN Pain 07/22/23 08/10/23 History mg tablet (Excedrin Tension Headache) Patient History Medical History Foreign body in urethra Per [facility] discharge summary 07/09/23- patient pulled out bassett and ate 5 ft of catheter tubing and also placed pieces of tubing back into urethra (EGD/cysto done 07/08/23 to remove foreign bodies) - Pt presented to [facility] ED 07/10/23- reinserted another FB into urthetra - reason for upcoming procedure Blindness of left eye Seborrhea capitis Fracture of orbital floor left side - 06/26/23- seen at [facility] ED for "orbital blowout fracture"- following with ophthalmology as outpatient Fracture of nasal bone Gastritis Antisocial personality disorder Surgical History No history of previous surgery not listed on [facility] record Social History Smoking Status: Never smoker Preferred Language: Kyrgyz Communication Ability: Effective Visual Impairment: Blindness 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 Beliefs That Will Affect Care: None Current Living Situation: Other Current Living Situation Comment: Inmate at [facility] Feels Safe at Home: Yes Assistive Devices: None Review of Systems Constitutional: no fever and no chills Ear, Nose, Mouth, Throat: no ear pain Respiratory: no cough Cardiovascular: no chest pain Gastrointestinal: + abdominal pain; no nausea and no vomit ing Genitourinary: no dysuria Musculoskeletal: no back pain Integumentary: no rash Neurologic: no localized weakness Physical Exam Constitutional: WD/WN, vitals as above Eyes: no conjunctival abnormality ENMT: Ears: no hearing impairment and no external ear abnormality Mouth: no oropharynx abnormality Neck: trachea midline Respiratory: normal respiratory effort; no respiratory distress and no labored breathing Cardiovascular: Rate/Rhythm: regular rate and regular rhythm Gastrointestinal (Abdomen): Abdomen is soft and nondistended. There is no rebound tenderness or guarding. There is minimal pain with palpation at the time of my exam Musculoskeletal: No calf tenderness Skin: no rashes Neurologic: moves all extremities Psychiatric: A+Ox3, euthymic affect Genitourinary: The patient's penis was examined. There were no cuts or excoriations on his penis. He had a normal-appearing circumcised penis. Upon palpation of the penile shaft he did appear to have a foreign body palpable in the shaft of the penis but this was not able to be visualized at the meatus. Results & Data Vital Signs (Past 12 Hours) Vital Signs Temp Pulse Pulse Resp BP BP Pulse Ox 08/18/23 01:13 64 15 146/85 H 98 08/18/23 00:22 67 16 123/92 98 08/17/23 22:47 66 17 98 08/17/23 22:12 36.2 C L 66 16 118/72 98 O2 Del Method 08/18/23 01:13 Room Air 08/18/23 00:22 Room Air 08/17/23 22:47 Room Air 08/17/23 22:12 Room Air PG Care Time/CCT Total # of Minutes Spent Total Time Spent with Patient: Total time spent is greater than 50% in coordination of care (as documented) at patient's floor/unit and/or counseling patient: Coding Level of Care Code 21843 IN/OBS CONSULT LVL 5,80M Diagnoses Urethral foreign body T19.0XXA Encounter type: initial encounter (1) Urethral foreign body Encounter type: initial encounter Qualified Code(s): T19.0XXA - Foreign body in urethra, initial encounter
--- NOTE | 2023-08-18 04:06 | GI REPORT ---
Patient Name: Jose Gibbs Procedure Date: 08/18/2023 2:54 AM Date of : 1990 Admit Type: Emergency Department Age: 32 Gender: Male Attending MD: Hasmukh Dangelo MD, Procedure: Upper GI endoscopy Providers: Hasmukh Dangelo MD Referring MD: Ronal Howard Indications: Foreign body in the stomach Medicines: General Anesthesia Complications: No immediate complications. Estimated blood loss: None. Estimated Blood Loss: Estimated blood loss: none. Procedure: Pre-Anesthesia Assessment: - Pre-Anesthesia Assessment: - Prior to the procedure, a History and Physical was performed, and patient medications, allergies and sensitivities were reviewed. The patient's tolerance of previous anesthesia was reviewed. Please see [facility] for complete details. - The risks and benefits of the procedure and the sedation options and risks were discussed with the patient. All questions were answered and informed consent was obtained. - Patient identification and proposed procedure were verified prior to the procedure by the physician and the nurse. The procedure was verified in the pre-procedure area in the procedure room. After obtaining informed consent, the endoscope was passed carefully and meticuously under direct vision and only advanced when the lumen was clearly identified, C02 insuflation was utilized throughout the entirity of the procedure. Throughout the procedure, the patient's blood pressure, pulse, and oxygen saturations were monitored continuously. After obtaining informed consent, the endoscope was passed under direct vision. Throughout the procedure, the patient's blood pressure, pulse, and oxygen saturations were monitored continuously. The Scope was introduced through the mouth, and advanced to the fourth part of duodenum. The upper GI endoscopy was accomplished without difficulty. The patient tolerated the procedure well. Findings: The examined esophagus was normal. Multiple ink pens were found in the gastric fundus. The endoscope was removed, and an overtube with cap was fitted. The scope and overtube were then reinserted via the mouth and advanced to the stomach to protect the esophagus, to facilitate the procedure, to aid in foreign body removal and to facilitate repeated passages of the scope. Removal was accomplished with a standard snare. 9 ink pens were removed intact, a large amount of food was identified making visibility and examination difficult, this was irrigated and gently probed with the closed snare, no other objects were identified specifically a razor. The examined duodenum was normal. Impression: - Normal esophagus. - Multiple ink pens were found in the stomach. Removal was successful. - Normal examined duodenum. - An overtube with cap was used to protect the esophagus, to facilitate the procedure, to aid in foreign body removal and to facilitate repeated passages of the scope. Recommendation: - [facility] for [facility] care. - Abdominal Xray in the AM - NPO until repeat Xray and seen by Urology for surgical plan - If any foreign bodies discuss with daytime team for potential repeat EGD, however, none seen today Hasmukh Dangelo MD 08/18/2023 4:05:50 AM This report has been signed electronically. Note Initiated On: 08/18/2023 2:54 AM Number of Addenda: 0 I attest to the content of the Intraoperative Record and orders documented therein, exceptions below {[id number]}
--- NOTE | 2023-08-18 04:07 | Communication Note ---
Date of Service: August 18, 2023 EGD performed with multiple intact ink pens being removed. Large amount of food in stomach making clearance difficult Recs: - Return patient to [facility] for ongoing care. - Abdominal Xray in the AM - NPO until repeat Xray and seen by Urology for surgical plan - If any foreign bodies discuss with daytime team for potential repeat EGD, however, none seen today
[2023-08-18] MEDS ORDERED: ONDANSETRON INJ 2 MG/ML 2 ML VIAL IV PRN ×3 (04:12→10:16)
[2023-08-18] MEDS ORDERED: ePHEDrine sulfate 50 MG/ML AMP IV PRN ×2 (04:12→10:16)
[2023-08-18] MEDS ORDERED: ATROPINE SULFATE 0.1 MG/ML 10ML SYR IV PRN ×2 (04:12→10:16)
[2023-08-18] MEDS ORDERED: fentaNYL citrate PF 100 MCG/2 ML VIAL IV PRN ×2 (04:12→10:16)
--- NOTE | 2023-08-18 04:14 | Anesthesiology Progress Note ---
Date of Service August 18, 2023 Anesthesia Post Procedure Vital Signs Vital Signs: Temp Pulse Pulse Resp BP BP BP 08/18/23 04:05 97.9 F 67 16 138/85 08/18/23 02:32 08/18/23 02:15 08/18/23 02:00 08/18/23 02:00 138/93 08/18/23 02:00 138/93 08/18/23 01:45 08/18/23 01:30 08/18/23 01:15 08/18/23 01:13 64 15 146/85 H 08/18/23 01:10 08/18/23 00:22 67 16 123/92 08/17/23 22:47 66 17 08/17/23 22:12 97.2 F L 66 16 118/72 Pulse Ox O2 Del Method 08/18/23 04:05 100 Room Air 08/18/23 02:32 97 Room Air 08/18/23 02:15 98 Room Air 08/18/23 02:00 97 Room Air 08/18/23 02:00 08/18/23 02:00 08/18/23 01:45 99 Room Air 08/18/23 01:30 97 Room Air 08/18/23 01:15 98 Room Air 08/18/23 01:13 98 Room Air 08/18/23 01:10 97 Room Air 08/18/23 00:22 98 Room Air 08/17/23 22:47 98 Room Air 08/17/23 22:12 98 Room Air Transfer of Care Handoff Completed per policy Notes Mental Status: alert / awake / arousable and participated in evaluation Patient Amnestic to Procedure: Yes Nausea / Vomiting: adequately controlled Pain: adequately controlled Airway Patency, RR, SpO2: stable & adequate BP & HR: stable & adequate Hydration State: stable & adequate Anesthetic Complications: no major complications apparent and Pt Satisfied with anesthetic care
[2023-08-18 04:33] LABS: iSTAT Creatinine 0.8 mg/dl (0.6-1.3); iSTAT Hemoglobin 13.6 g/dl (14.0-18.0); iSTAT Ionized Calcium 1.15 mmol/l (1.12-1.32); iSTAT Potassium 3.6 mmol/L (3.3-5.0)
[2023-08-18] MEDS: cefTRIAXone SODIUM 2,000 MG in DEXTROSE 5 % MINI-B 50 ML IV SCH (04:47)
[2023-08-18] MEDS: HYDROmorphone INJ 0.5 MG/0.5 ML SYR IV STA (04:50)
[2023-08-18] MEDS: HYDROmorphone INJ 0.5 MG/0.5 ML SYR ONE (04:51)
[2023-08-18] MEDS: PANTOprazole 40 MG in SYRINGE 0 ML IV SCH (05:06)
[2023-08-18] MEDS: LORazepam 1 MG in SYRINGE 0.5 ML IV STA (05:06)
--- NOTE | 2023-08-18 05:10 | Communication Note ---
Date of Service: August 18, 2023 Called to bedside by nursing for intractable abdominal pain. Patient recently in the OR for endoscopy with pen removal. Prior to procedure patient was relatively comfortable. Became uncomfortable after emerging from sedation and leaving the PACU for the medical floors. Vital signs without tachycardia or hypotension. Patient hypertensive in the 140s SBP. Patient was given dilaudid x1 and stat XR Abdomen was ordered. Imaging reviewed by me without signs of free air or perforation. One pen present on imaging. Upon my interview patient does appear uncomfortable. Is clenching his fists and has his eyes closed. Does occasionally say "ow". No diaphoresis or grimacing. He is voluntarily guarding limiting abdominal exam. Unable to assess for rebound. M ost likely soft, but cannot definitively say d/t guarding. Less likely acute abdomen as patient is rocking back and forth voluntarily. Did contact performing provider Hasmukh Dangelo via tiger text. With patient's stable hemodynamics and reassuring XR, I am less suspicious for perforation. Unlikely that 1 residual pen would cause more pain than 8 pens. Will give protonix and ativan. Continue antibiotics. Will continue to monitor for signs of acute abdomen/hemodynamic instability. Would defer to day team/GI team for further recommendations/interventions. Contacted again about Mr. Gibbs. Ordered voltaren gel and lidocaine patch. Also ordered benadryl 50 mg x1. Discussed case with Dr. Wilson. See attending attestation for further documentation Resident Activity Tracking Resident Involvement: Resident Care Provided Care Provided: Adult Hospital Medicine
[2023-08-18] MEDS: ACETAMINOPHEN 1,000 MG/100 ML VIAL IV PRN (06:01)
[2023-08-18] MEDS: diphenhydrAMINE 50 MG/ML VIAL IV STA (06:05)
[2023-08-18] MEDS: LIDOCAINE 5% 1 PATCH TD STA (06:13)
--- NOTE | 2023-08-18 06:56 | XRay Report ---
XR pelvis 1-2V routine CLINICAL HISTORY: Evaluate for penile foreign body. COMPARISON STUDY: Abdomen and pelvis CT 08/17/2023. FINDINGS: There is a 7.9 cm linear/tubular foreign body overlying the penis. This corresponds to the CT abnormality. There is contrast within the bladder from the recent CT examination. IMPRESSION: There is a 7.9 cm linear/tubular foreign body overlying the penis. ACT 112: Negative or not required by law. Electronically signed by: Marc Alves M.D. 08/18/2023 6:55 AM
--- NOTE | 2023-08-18 07:52 | Communication Note ---
note entered in error
--- NOTE | 2023-08-18 07:53 | XRay Report ---
SINGLE VIEW CHEST CLINICAL HISTORY: Foreign body assessment FINDINGS: An AP, portable, upright chest radiograph is compared to study dated 07/10/2023. The cardiom ediastinal silhouette is unremarkable. The lungs and pleural spaces are clear. No pneumothorax is see n. The bony thorax is grossly intact. Numerous (at least 8) linear radiodense foreign bodies project over the left upper quadrant of the abdomen. IMPRESSION: 1. The lungs are clear. 2. Numerous linear radiodense foreign bodies project over the left upper quadrant of the abdomen, lik loyda located in the stomach. Correlate clinically. ACT 112: Negative or not required by law. Electronically signed by: Isai Arriola M.D. 08/18/2023 7:52 AM
--- NOTE | 2023-08-18 08:05 | XRay Report ---
KUB HISTORY: foreign body severe pain COMPARISON: KUB 07/07/2023. FINDINGS: Decrease in number of the linear/tubular metallic foreign bodies within the stomach. There is a single 8.5 cm foreign body remaining. Overlying electronic devices are noted within the midabdom en. There is contrast within the bladder from the recent CT examination. The penile foreign body seen on the prior study is not included on this image. No renal calculi. No ureteral calculi. No pneumop eritoneum or pneumatosis. IMPRESSION: Interval decrease in number of the linear/tubular metallic foreign bodies within the stomach with a s moses 8.5 cm foreign body remaining. ACT 112: Negative or not required by law. Electronically signed by: Marc Alves M.D. 08/18/2023 8:04 AM
[2023-08-18] MEDS: DICLOFENAC SOD 1% GEL 100 GM TUBE EXT SCH (08:25)
--- NOTE | 2023-08-18 08:34 | Communication Note ---
Date of Service: August 18, 2023 The patient underwent urgent upper endoscopy early this morning with my partner Dr. Dangelo for a suspected ingestion of razor and numerous pens. During the procedure numerous pens were removed from the patient's abdomen. Unfortunately it appears that 1 pen does remain on a KUB obtained early this morning. Given the nature of the ingested device I worry that if the pen is left within the stomach for another 24 hours this could result in perforation. Thus I would recommend a repeat emergency upper endoscopy this morning to remove the remaining foreign body. As the patient did receive anesthesia this morning we will need to attain permission for the repeat procedure from the present in which the patient is incarcerated KUB results 08/18/23 HISTORY: foreign body severe pain COMPARISON: KUB 07/07/2023. FINDINGS: Decrease in number of the linear/tubular metallic foreign bodies within the stomach. There is a single 8.5 cm foreign body remaining. Overlying electronic devices are noted within the midabdomen. There is contrast within the bladder from the recent CT examination. The penile foreign body seen on the p rior study is not included on this image. No renal calculi. No ureteral calculi. No pneumoperitoneum or pneumatosis. IMPRESSION: Interval decrease in number of the linear/tubular metallic foreign bodies within the stomach with a single 8.5 cm foreign body remaining.
[2023-08-18] MEDS ORDERED: fentaNYL citrate PF 100 MCG/2 ML VIAL ONE (08:37)
[2023-08-18] MEDS ORDERED: ONDANSETRON INJ 2 MG/ML 2 ML VIAL ONE (08:38)
[2023-08-18] MEDS ORDERED: MIDAZOLAM HCL 1 MG/ML 2ML VIAL ONE (09:34)
--- NOTE | 2023-08-18 09:41 | Urology Progress Note ---
Date of Service August 18, 2023 Assessment & Plan (1) Urethral foreign body: Plan 32-year-old male with urethral foreign body thought to be a pen and miguel that was seen on both CT scan and x-ray. Patient also ingested foreign bodies and GI try to remove them last night but due to food in the stomach they have to take him back today. Patient is unable to provide his own consent as he recently got anesthesia. I discussed the risks and benefits of the procedure including but not limited to pain, bleeding, infection, damage to genitourinary tract and inability to remove foreign bodies. Patient provided verbal consent. This is an emergent procedure due to obstruction of his urethra and we will move forward with taking him to the OR emergently. Consent from the [place] was waived due to this. Discussed that patient may possibly need catheter afterwards which he also consented to. To the OR for cystoscopy and urethral foreign body removal Admission and Anticipated Discharge Date Admission Date: August 18, 2023 Subjective Patient reports that he placed a pin in an unknown amount of miguel in his urethra. He is scheduled to go for an EGD and foreign body removal with GI. I introduced myself and discussed removing foreign bodies from his urethra and bladder which he was agreeable to.Patient went to the OR last night for an EGD but due to food in his stomach it has to be rescheduled today as they could not visualize the foreign bodies. Review of Systems Review of Systems: 14 point review of systems negative outs christopher of what is listed above in HPI Physical Exam Physical Exam: General: Alert and oriented, no acute distress HEENT: Normocephalic, mucous membranes moist Pulmonary: Nonlabored respirations Abdomen: Nondistended Extremities: Moves all 4 spontaneously Neuro: No gross deficits Skin: Warm, dry, no rashes noted Results & Data Vital Signs (Past 12 Hours) Vital Signs Temp Pulse Pulse Resp BP BP BP 08/18/23 09:27 36.3 C L 62 20 121/75 08/18/23 06:23 36.6 C 68 20 141/82 H 08/18/23 06:15 71 20 141/82 H 08/18/23 06:00 82 08/18/23 05:45 78 20 149/89 H 08/18/23 05:15 81 22 08/18/23 05:00 82 22 154/101 H 08/18/23 04:50 82 08/18/23 04:45 36.6 C 79 20 160/114 H 08/18/23 04:45 08/18/23 04:30 36.6 C 78 20 166/105 H 08/18/23 04:25 36.6 C 78 18 148/107 H 08/18/23 04:15 36.6 C 70 20 158/92 H 08/18/23 04:05 36.6 C 67 16 138/85 08/18/23 02:32 08/18/23 02:15 08/18/23 02:00 08/18/23 02:00 138/93 08/18/23 02:00 138/93 08/18/23 01:45 08/18/23 01:30 08/18/23 01:15 08/18/23 01:13 64 15 146/85 H 08/18/23 01:10 08/18/23 00:22 67 16 123/92 08/17/23 22:47 66 17 08/17/23 22:12 36.2 C L 66 16 118/72 Pulse Ox O2 Del Method O2 Flow Rate 08/18/23 09:27 100 Room Air 08/18/23 06:23 98 Nasal Cannula 4 08/18/23 06:15 98 Nasal Cannula 4 08/18/23 06:00 08/18/23 05:45 93 Nasal Cannula 4 08/18/23 05:15 88 L Nasal Cannula 2 08/18/23 05:00 93 Room Air 08/18/23 04:50 08/18/23 04:45 96 Room Air 08/18/23 04:45 Room Air 08/18/23 04:30 96 Room Air 08/18/23 04:25 96 Room Air 08/18/23 04:15 100 Room Air 08/18/23 04:05 100 Room Air 08/18/23 02:32 97 Room Air 08/18/23 02:15 98 Room Air 08/18/23 02:00 97 Room Air 08/18/23 02:00 08/18/23 02:00 08/18/23 01:45 99 Room Air 08/18/23 01:30 97 Room Air 08/18/23 01:15 98 Room Air 08/18/23 01:13 98 Room Air 08/18/23 01:10 97 Room Air 08/18/23 00:22 98 Room Air 08/17/23 22:47 98 Room Air 08/17/23 22:12 98 Room Air PG Care Time/CCT Total # of Minutes Spent Total Time Spent with Patient: Total time spent is greater than 50% in coordination of care (as documented) at patient's floor/unit and/or counseling patient: Coding Level of Care Code 90166 SUB INP/OBS CARE 2/35MIN Diagnoses Urethral foreign body T19.0XXA Encounter type: initial encounter (1) Urethral foreign body Encounter type: initial encounter Qualified Code(s): T19.0XXA - Foreign body in urethra, initial encounter
--- NOTE | 2023-08-18 09:45 | Communication Note ---
Date of Service: August 18, 2023 The patient is cognizant and able to give his own consent for today's procedure. I was able to discuss the risks and benefits of the procedure with the und ergone a recent exam for the same exact indication and had a signed consent several hours ago which was reviewed with the patient in great depth today.
[2023-08-18] MEDS: LACTATED RINGER'S 1,000 ML IV SCH (09:46)
--- NOTE | 2023-08-18 10:18 | Communication Note ---
Date of Service: August 18, 2023 The patient underwent emergency upper endoscopy today for removal of a foreign body. We were able to successfully remove the foreign body from the patient's stomach. Recommendation Liquid diet for 3 days 40 mg daily for 6 weeks GI to sign off
--- NOTE | 2023-08-18 10:18 | Post Operative Brief Note ---
Immediate Post Op Note v1 Date of Surgery August 18, 2023 Pre & Post Diagnosis Operation Date: 08/18/23 07:00 Upper endoscopy I identified the patient and participated in the time-out.: Yes Procedure Operation Date: 08/18/23 07:00 Upper endoscopy with foreign body removal Surgeon Kush Cortes DO System Software Developer none Estimated Blood Loss 0 Findings Consistent with Post-Op Diagnosis
--- NOTE | 2023-08-18 10:22 | GI REPORT ---
Patient Name: Jose Gibbs Procedure Date: 08/18/2023 8:56 AM Date of : 1990 Admit Type: Inpatient Age: 32 Gender: Male Attending MD: Kush Cortes DO, Procedure: Upper GI endoscopy Providers: Kush Cortes DO Referring MD: Ronal Howard Indications: Foreign body in the stomach Medicines: General Anesthesia Complications: No immediate complications. Estimated blood loss: Minimal. Estimated Blood Loss: Estimated blood loss was minimal. Procedure: Pre-Anesthesia Assessment: - Prior to the procedure, a History and Physical was performed, and patient medications, allergies and sensitivities were reviewed. The patient's tolerance of previous anesthesia was reviewed. - The risks and benefits of the procedure and the sedation options and risks were discussed with the patient. All questions were answered and informed consent was obtained. - Patient identification and proposed procedure were verified prior to the procedure by the physician, the nurse and the eyelet punch operator. The procedure was verified in the pre-procedure area in the procedure room. - Pre-procedure physical examination revealed no contraindications to sedation. - ASA Grade Assessment: II - A patient with mild systemic disease. - After reviewing the risks and benefits, the patient was deemed in satisfactory condition to undergo the procedure. - The anesthesia plan was to use general anesthesia. - Immediately prior to administration of medications, the patient was re-assessed for adequacy to receive sedatives. - The heart rate, respiratory rate, oxygen saturations, blood pressure, adequacy of pulmonary ventilation, and response to care were monitored throughout the procedure. - The physical status of the patient was re-assessed after the procedure. After obtaining informed consent, the endoscope was passed under direct vision. Throughout the procedure, the patient's blood pressure, pulse, and oxygen saturations were monitored continuously. The Endoscope was introduced through the mouth, and advanced to the third part of duodenum. The upper GI endoscopy was accomplished without difficulty. The patient tolerated the procedure well. Findings: The examined esophagus was normal. Patchy mild inflammation characterized by adherent blood, erythema and granularity was found in the entire examined stomach. A single remaining pen were found in the gastric body. Removal was accomplished with a snare. Estimated blood loss was minimal. The esophagus and stomach were carefully evaluated after removal of the pen and there was no evidence of a rent within the mucosa. The examined duodenum was normal. Impression: - Normal esophagus. - Diffuse Gastritis. - A pen were found in the stomach. Removal was successful. - Normal examined duodenum. Recommendation: - Clear liquid diet for 3 days. - Use Prilosec (omeprazole) 40 mg PO daily for 6 weeks. Kush Cortes D.O. Kush Cortes, 08/18/2023 10:22:29 AM This report has been signed electronically. Note Initiated On: 08/18/2023 8:56 AM Number of Addenda: 0 I attest to the content of the Intraoperative Record and orders documented therein, exceptions below {[id number]}
--- NOTE | 2023-08-18 10:35 | Post Operative Brief Note ---
PG Immediate Post Op with CF Date of Surgery August 18, 2023 Pre & Post Diagnosis Urethral foreign body Operation Date: 08/18/23 07:00 <No data on this case meets the specified criteria> Urethral foreign body I identified the patient and participated in the time-out.: Yes Procedure Cystoscopy, urethral foreign body removal Operation Date: 08/18/23 07:00 <No data on this case meets the specified criteria> Surgeon José Manuel Meadows MD Rug Dyer none Estimated Blood Loss 0 Findings See Below Portion of pen removed from penile urethra. No obvious trauma to the urethra. Bladder free of any other foreign bodies. Specimens Specimen Description: A: Foreign body from stomach Anesthesia Type General Complications none
--- NOTE | 2023-08-18 10:38 | Operative Report ---
PG Post Operative Report Pre & Post Diagnosis Urethral foreign body Operation Date: 08/18/23 07:00 <No data on this case meets the specified criteria> Urethral foreign body I identified the patient and participated in the time-out.: Yes Procedure Cystoscopy, removal of urethral foreign body Operation Date: 08/18/23 07:00 <No data on this case meets the specified criteria> Surgeon José Manuel Meadows MD Wood Mill Supervisor none Estimated Blood Loss 0 Findings See Below Portion of pen removed from penile urethra. No obvious trauma to the urethra. Bladder free of any other foreign bodies. Specimens Urethral foreign Drains None Anesthesia Type General Complications none Indications 32-year-old incarcerated male with a history of eating foreign bodies as well as placing them in his urethra. Reportedly put a pen and miguel in his urethra. He was going to the OR for the second time with GI to finish removal of foreign bodies. I could not get consent from him due to recent anesthesia but verbal consent was obtained and written consent was waived due to the emergent nature of this case. Description of Procedure After informed consent was obtained, the patient was transported to the operative suite. General anesthesia was induced. They were placed in dorsal lithotomy position and prepped and draped in sterile fashion. They received preoperative ceftriaxone. An appropriate surgical timeout was performed. With manual palpation, I was able to feel the distal tip of the pen in his urethra. 21 [place] rigid cystoscope was inserted per urethra and the pin was encountered in the penile urethra. Using a grasper, I remove the pen atraumatically. I went back in with the cystoscope and there was no significant trauma to the urethra or any other foreign bodies in the urethra. Maynard cystoscopy revealed no injuries to the bladder and no foreign bodies. Bladder was emptied and scope was removed. This concluded the end of the case. All counts correct at the end of the case. I was present And actively participated for the entirety of the procedure. I attest to the content of the Intraoperative Record and any orders documented therein. Any exceptions are noted below.
[2023-08-18] MEDS ORDERED: ACETAMINOPHEN 500 MG TAB PO PRN (12:31)
--- NOTE | 2023-08-18 13:34 | Anesthesiology Progress Note ---
Date of Service August 18, 2023 Anesthesia Post Procedure Vital Signs Vital Signs: Temp Pulse Pulse Pulse Resp BP BP 08/18/23 11:35 36.5 C 63 17 116/70 08/18/23 11:05 61 15 101/58 L 08/18/23 10:55 61 17 112/58 L 08/18/23 10:47 36.2 C L 58 L 17 104/57 L 08/18/23 09:27 36.3 C L 62 20 08/18/23 08:10 08/18/23 06:23 36.6 C 68 20 141/82 H 08/18/23 06:15 71 20 141/82 H 08/18/23 06:00 82 08/18/23 05:45 78 20 149/89 H 08/18/23 05:15 81 22 08/18/23 05:00 82 22 154/101 H 08/18/23 04:50 82 08/18/23 04:45 36.6 C 79 20 160/114 H 08/18/23 04:45 08/18/23 04:30 36.6 C 78 20 166/105 H 08/18/23 04:25 36.6 C 78 18 148/107 H 08/18/23 04:15 36.6 C 70 20 158/92 H 08/18/23 04:05 36.6 C 67 16 138/85 08/18/23 02:32 08/18/23 02:15 08/18/23 02:00 08/18/23 02:00 138/93 08/18/23 02:00 138/93 08/18/23 01:45 08/18/23 01:30 08/18/23 01:15 08/18/23 01:13 64 15 08/18/23 01:10 08/18/23 00:22 67 16 08/17/23 22:47 66 17 08/17/23 22:12 36.2 C L 66 16 118/72 BP Pulse Ox O2 Del Method O2 Flow Rate 08/18/23 11:35 99 Room Air 08/18/23 11:05 99 Room Air 08/18/23 10:55 99 Oxymask 5 08/18/23 10:47 99 Oxymask 5 08/18/23 09:27 121/75 100 Room Air 08/18/23 08:10 Room Air 08/18/23 06:23 98 Nasal Cannula 4 08/18/23 06:15 98 Nasal Cannula 4 08/18/23 06:00 08/18/23 05:45 93 Nasal Cannula 4 08/18/23 05:15 88 L Nasal Cannula 2 08/18/23 05:00 93 Room Air 08/18/23 04:50 08/18/23 04:45 96 Room Air 08/18/23 04:45 Room Air 08/18/23 04:30 96 Room Air 08/18/23 04:25 96 Room Air 08/18/23 04:15 100 Room Air 08/18/23 04:05 100 Room Air 08/18/23 02:32 97 Room Air 08/18/23 02:15 98 Room Air 08/18/23 02:00 97 Room Air 08/18/23 02:00 08/18/23 02:00 08/18/23 01:45 99 Room Air 08/18/23 01:30 97 Room Air 08/18/23 01:15 98 Room Air 08/18/23 01:13 146/85 H 98 Room Air 08/18/23 01:10 97 Room Air 08/18/23 00:22 123/92 98 Room Air 08/17/23 22:47 98 Room Air 08/17/23 22:12 98 Room Air Pain Intensity Bilateral Abdomen: Pain Intensity: 10 Transfer of Care Handoff Completed per policy Notes Mental Status: alert / awake / arousable Patient Amnestic to Procedure: Yes Nausea / Vomiting: adequately controlled Pain: adequately controlled Airway Patency, RR, SpO2: stable & adequate BP & HR: stable & adequate Hydration State: stable & adequate Anesthetic Complications: no major complications apparent
--- NOTE | 2023-08-18 14:29 | Discharge Summary ---
Date of Service August 18, 2023 Admission HPI Per Admitting Provider The patient is a 32-year-old resident of [facility], who presents to the emergency department with similar presentation in the past as noted above. CT scan abdomen pelvis notes multiple foreign bodies in the stomach, and foreign body noted in penis. Gastroenterology Dr. Dangelo is going to see the patient this evening, for possible endoscopy. Urology has assessed the patient in the emergency department, and will determine if cystoscopy will be done in the a.m. Principal Diagnosis ingestion of multiple foreign bodies (ink pens) and urethral foreign body (ink pen), patchy gastric inflammation due to irritation from foreign bodies Discharge Exam PHYSICAL EXAMINATION Last 24h vital signs reviewed, see documentation in flowsheet General: comfortable appearing, no distress, aroused easily to voice from napping HEENT: Normocephalic, atraumatic, pupils round and equal, sclerae anicteric, no conjunctival injection, moist mucus membranes Lungs: Normal respiratory effort. Clear to auscultation bilaterally. No RRW Heart: Regular rate and rhythm, no murmurs. No JVD Abdomen: Soft, nontender, nondistended. Bowel sounds present. Extremities: Warm, dry, well-perfused. No extremity edema. Neuro: Alert and oriented x 4, face symmetric, moves 4 extremities well Psych: guarded affect Discharge Data Allergies Allergy/AdvReac Type Severity Reaction Status Date / Time haloperidol [From Haldol] Allergy Severe swelling Verified 08/10/23 08:51 of throat Egg Derived Allergy Unknown SWELLING Verified 08/10/23 08:50 OF THROAT Consultations 08/18/23 01:58 ED Decision to Admit Stat 08/18/23 04:29 Consult Gastroenterology Routine 08/18/23 04:30 Consult Urology Routine Procedures Performed Operation Date: 08/18/23 07:00 Actual Procedures p Esophagogastroduodenoscopy with Removal of Foreign Body(Not Applicable) - Kush Cortes, DO s Cystoscopy with Removal of Foreign Body(Not Applicable) - José Manuel Meadows MD Ordered Studies 08/17/23 22:47 CT Abd and Pelvis [CT abd pelvis IV con only] Stat Abdomen/Pelvis CT 08/17/23 22:47 Exam(s): CT ABDOMEN + PELVIS With Contrast IV Amt: 93 ml optiray 320 EXAM: CT Abdomen and Pelvis With Intravenous Contrast CLINICAL HISTORY: Reason for exam: ? swallowed FB/perforation. TECHNIQUE: Axial computed tomography images of the abdomen and pelvis with intravenous contrast. CTDI is 11 mGy and DLP is 555.44 mGy-cm. Automated exposure control was utilized for the study. A dose lowering technique was utilized adhering to the principles of ALARA. CONTRAST: Patient received 93 ml optiray 320 of IV contrast COMPARISON: CT Abdomen Pelvis dated 07/06/23 FINDINGS: Lung bases: Unremarkable. No mass. No consolidation. ABDOMEN: Liver: Unremarkable. No mass. Gallbladder and bile ducts: Unremarkable. No calcified stones. No ductal dilation. Pancreas: Unremarkable. No mass. No ductal dilation. Spleen: Unremarkable. No splenomegaly. Adrenals: Unremarkable. No mass. Kidneys and ureters: Unremarkable. No solid mass. No hydronephrosis. Stomach and bowel: Cluster of linear/tubular foreign bodies within the proximal stomach. No obstruction. No mucosal thickening. PELVIS: Appendix: Normal appendix. Bladder: Unremarkable. No mass. Reproductive: Similar foreign body in the penis, partially visualized on this study. ABDOMEN and PELVIS: Intraperitoneal space: Unremarkable. No free air. No significant fluid collection. Bones/joints: No acute fracture. No dislocation. Soft tissues: Unremarkable. Vasculature: Unremarkable. No abdominal aortic aneurysm. Lymph nodes: Unremarkable. No enlarged lymph nodes. IMPRESSION: 1. Cluster of linear/tubular foreign bodies within the proximal stomach. No evidence of perforation. 2. Similar foreign body in the penis, partially visualized on this study. Electronically signed by: Chaka Del Rio M.D. 08/18/23 00:51 AM Chest X-Ray 08/17/23 22:47 SINGLE VIEW CHEST CLINICAL HISTORY: Foreign body assessment FINDINGS: An AP, portable, upright chest radiograph is compared to study dated 07/10/2023. The cardiomediastinal silhouette is unremarkable. The lungs and pleural spaces are clear. No pneumothorax is seen. The bony thorax is grossly intact. Numerous (at least 8) linear radiodense foreign bodies project over the left upper quadrant of the abdomen. IMPRESSION: 1. The lungs are clear. 2. Numerous linear radiodense foreign bodies project over the left upper quadrant of the abdomen, likely located in the stomach. Correlate clinically. ACT 112: Negative or not required by law. Electronically signed by: Isai Arriola M.D. 08/18/2023 7:52 AM Pelvis X-Ray 08/17/23 22:47 XR pelvis 1-2V routine CLINICAL HISTORY: Evaluate for penile foreign body. COMPARISON STUDY: Abdomen and pelvis CT 08/17/2023. FINDINGS: There is a 7.9 cm linear/tubular foreign body overlying the penis. This corresponds to the CT abnormality. There is contrast within the bladder from the recent CT examination. IMPRESSION: There is a 7.9 cm linear/tubular foreign body overlying the penis. ACT 112: Negative or not required by law. Electronically signed by: Marc Alves M.D. 08/18/2023 6:55 AM KUB X-Ray 08/18/23 04:53 KUB HISTORY: foreign body severe pain COMPARISON: KUB 07/07/2023. FINDINGS: Decrease in number of the linear/tubular metallic foreign bodies within the stomach. There is a single 8.5 cm foreign body remaining. Overlying electronic devices are noted within the midabdomen. There is contrast within the bladder from the recent CT examination. The penile foreign body seen on the prior study is not included on this image. No renal calculi. No ureteral calculi. No pneumoperitoneum or pneumatosis. IMPRESSION: Interval decrease in number of the linear/tubular metallic foreign bodies within the stomach with a single 8.5 cm foreign body remaining. ACT 112: Negative or not required by law. Electronically signed by: Marc Alves M.D. 08/18/2023 8:04 AM 08/18/23 08/18/23 08/17/23 Range/Units 07:09 04:49 23:55 WBC (4.8-10.8) K/ul RBC (4.70-6.10) M/uL Hgb (14.0-18.0) g/dl POC Hgb (14.0-18.0) g/dl Hct (42.0-52.0) % POC Hct (42-52) % MCV (80.0-100.0) fL MCH (25.0-34.0) pg MCHC (32.0-36.0) g/dL RDW Std Deviation (36.4-46.3) fL RDW Coeff of Tiffany (11.5-14.5) % Plt Count (130-400) K/uL MPV (9.4-12.4) fL Immature Gran % (Auto) % Neut % (Auto) % Lymph % (Auto) % [place] % (Auto) % Eos % (Auto) % Baso % (Auto) % Neut # (Auto) (1.40-6.50) K/uL Lymph # (Auto) (1.20-3.40) K/uL [place] # (Auto) (0.11-0.59) K/uL Eos # (Auto) (0.00-0.50) K/uL Baso # (Auto) (0.00-0.20) K/uL Immature Gran # (Auto) (0.01-0.20) K/uL POC Sodium (135-144) mmol/L Sodium (136-145) mmol/L POC Potassium (3.3-5.0) mmol/L Potassium (3.5-5.1) mmol/L POC Chloride (101-112) mmol/L Chloride (98-107) mmol/L Carbon Dioxide (21-32) mmol/L POC Total CO2 (24-31) mmol/L Anion Gap (3-11) POC Anion Gap (16-25) mmol/L POC BUN (7-18) mg/dl BUN (6-23) mg/dl Creatinine (0.6-1.4) mg/dl POC Creatinine (0.6-1.3) mg/dl Est Cr Clr Drug Dosing Est GFR ( Amer) ml/min Est GFR (Non-Af Amer) ml/min BUN/Creatinine Ratio (10-20) Glucose (70-99(Fasting)) mg/dl POC Glucose 97 94 (70-99) mg/dl POC Glucose (other) (70-99) mg/dl Calcium (8.6-10.3) mg/dl POC Ioniz Calcium Janet (1.12-1.32) mmol/l Total Bilirubin (0.2-1.0) mg/dl AST (13-39) U/L ALT (7-52) U/L Alkaline Phosphatase (34-104) U/L Total Creatine Kinase (30-223) U/L Total Protein (6.0-8.3) gm/dl Albumin (3.4-5.0) gm/dl Globulin (2.5-4.0) gm/dl Albumin/Globulin Ratio (0.9-2) Salicylates (3.0-30) mg/dl Acetaminophen (10-30) ug/ml Ethyl Alcohol mg/dL (<10.0) mg/dl SARS-CoV-2, RNA, NAAT POSITIVE A (NEGATIVE) 08/17/23 08/17/23 Range/Units 23:03 22:58 WBC 6.47 (4.8-10.8) K/ul RBC 4.60 L (4.70-6.10) M/uL Hgb 13.3 L (14.0-18.0) g/dl POC Hgb 13.6 L (14.0-18.0) g/dl Hct 39.6 L (42.0-52.0) % POC Hct 40 L (42-52) % MCV 86.1 (80.0-100.0) fL MCH 28.9 (25.0-34.0) pg MCHC 33.6 (32.0-36.0) g/dL RDW Std Deviation 40.0 (36.4-46.3) fL RDW Coeff of Tiffany 12.7 (11.5-14.5) % Plt Count 198 (130-400) K/uL MPV 11.7 (9.4-12.4) fL Immature Gran % (Auto) 0.3 % Neut % (Auto) 69.9 % Lymph % (Auto) 20.6 % [place] % (Auto) 8.0 % Eos % (Auto) 0.6 % Baso % (Auto) 0.6 % Neut # (Auto) 4.52 (1.40-6.50) K/uL Lymph # (Auto) 1.33 (1.20-3.40) K/uL [place] # (Auto) 0.52 (0.11-0.59) K/uL Eos # (Auto) 0.04 (0.00-0.50) K/uL Baso # (Auto) 0.04 (0.00-0.20) K/uL Immature Gran # (Auto) 0.02 (0.01-0.20) K/uL POC Sodium 141 (135-144) mmol/L Sodium 139 (136-145) mmol/L POC Potassium 3.6 (3.3-5.0) mmol/L Potassium 3.7 (3.5-5.1) mmol/L POC Chloride 101 (101-112) mmol/L Chloride 105 (98-107) mmol/L Carbon Dioxide 28 (21-32) mmol/L POC Total CO2 29 (24-31) mmol/L Anion Gap 6 (3-11) POC Anion Gap 16.0 (16-25) mmol/L POC BUN 14 (7-18) mg/dl BUN 15 (6-23) mg/dl Creatinine 0.78 (0.6-1.4) mg/dl POC Creatinine 0.8 (0.6-1.3) mg/dl Est Cr Clr Drug Dosing Not Reportable Est GFR ( Amer) 138.4 ml/min Est GFR (Non-Af Amer) 119.4 ml/min BUN/Creatinine Ratio 19.2 (10-20) Glucose 88 (70-99(Fasting)) mg/dl POC Glucose (70-99) mg/dl POC Glucose (other) 89 (70-99) mg/dl Calcium 8.8 (8.6-10.3) mg/dl POC Ioniz Calcium Janet 1.15 (1.12-1.32) mmol/l Total Bilirubin 0.4 (0.2-1.0) mg/dl AST 14 (13-39) U/L ALT 12 (7-52) U/L Alkaline Phosphatase 62 (34-104) U/L Total Creatine Kinase 93 (30-223) U/L Total Protein 6.9 (6.0-8.3) gm/dl Albumin 4.6 (3.4-5.0) gm/dl Globulin 2.3 L (2.5-4.0) gm/dl Albumin/Globulin Ratio 2.0 (0.9-2) Salicylates < 3.0 L (3.0-30) mg/dl Acetaminophen < 3 L (10-30) ug/ml Ethyl Alcohol mg/dL < 10.0 (<10.0) mg/dl SARS-CoV-2, RNA, NAAT (NEGATIVE) Hospital Course (1) Swallowed foreign body: (2) Urethral foreign body: Plan 32 y/o prisoner admitted after intentional ingestion of multiple foreign bodies. Patient also reported inserting foreign body into urethra. History of similar behavior in the past. CT of abdomen and pelvis notes multiple foreign bodies in the stomach Gastroenterology consulted: EGD #1 2196 AM - nine ink pens removed from stomach EGD #2 0900 AM - one ink pen removed from stomach "Findings: The examined esophagus was normal. Patchy mild inflammation characterized by adherent blood, erythema and granularity was found in the entire examined stomach. A single remaining pen were found in the gastric body. Removal was accomplished with a snare. Estimated blood loss was minimal. The esophagus and stomach were carefully evaluated after removal of the pen and there was no evidence of a rent within the mucosa. The examined duodenum was normal. Impression: - Normal esophagus. - Diffuse Gastritis. - A pen were found in the stomach. Removal was successful. - Normal examined duodenum." Recommendations from gastroenterology: clear liquid diet x 3 days, daily PPI x 6 weeks -lansoprazole, omeprazole, esomeprazole, and pantoprazole are available as powde r packets -famotidine (pepcid) 20 mg bid CAN be crushed and may be used until PPI available -tolerated liquid diet prior to discharge without difficulty Urology consulted for urethral foreign body Cystoscopy 10:33 AM - ink pen removed from urethra -bassett catheter not placed because patient had removed and ingested catheter tubing on previous admission No specific follow up required with GI or urology I strongly advised Mr. Gibbs not to ingest or insert foreign objects, which can cause severe injury or even . I queried why he did this and he stated "I don't know" COVID swab positive but appears to be asymptomatic, no fever cough or hypoxia, low risk for severe disease -symptomatic care Total Time Total Time Spent Total Time Spent (In Minutes): I personally spent: 50 minutes today on clinical care activities including: reviewing chart notes and vital signs reviewing labs reviewing studies discussion with consultants - GI, urology discussion with provider at [facility] Ronal examining and counseling the patient writing orders documentation Discharge Plan Discharge Items [facility] Reason For Visit: FB INGESTION, URETHRAL FB Discharge Diagnosis: foreign body ingestion, urethral foreign body Condition on Discharge: Good Activity: Resume your previous activity Non-emergency contact: Primary Care Provider Call non-emergency contact if: you have any medication questions and your symptoms worsen Follow-up/Referrals: Ronal WALL [Primary Care Provider] - Diet: Clear liquid Addtl Attending Provider Instructions: EGD #1 0406 AM - nine ink pens removed from stomach EGD #2 0900 AM - one ink pen removed from stomach "Findings: The examined esophagus was normal. Patchy mild inflammation characterized by adherent blood, erythema and granularity was found in the entire examined stomach. A single remaining pen were found in the gastric body. Removal was accomplished with a snare. Estimated blood loss was minimal. The esophagus and stomach were carefully evaluated after removal of the pen and there was no evidence of a rent within the mucosa. The examined duodenum was normal. Impression: - Normal esophagus. - Diffuse Gastritis. - A pen were found in the stomach. Removal was successful. - Normal examined duodenum." Cystoscopy 10:33 AM - ink pen removed from urethra Recommendations from gastroenterology: clear liquid diet x 3 days, daily PPI x 6 weeks -lansoprazole, omeprazole, esomeprazole, and pantoprazole are available as powder packets -famotidine (pepcid) 20 mg bid CAN be crushed and may be used until PPI available No specific follow up required with GI or urology COVID swab positive but appears to be asymptomatic, no fever cough or hypoxia, low risk for severe disease Pending Studies at Discharge: No Stand-Alone Forms: [facility] Skilled Items Patient informed of condition?: Yes DNR: No Discharge Level of Care: Other Communicable Disease: Yes Discharge Prognosis: Stable Lines: None Urinary Catheter: No Medications and DC Order Prescriptions: New omeprazole 40 mg capsule,delayed release(DR/EC) 40 mg PO DAILY Qty: 90 0RF Continued Excedrin Tension Headache 500-65 mg Tablet 1 tab PO Q12H PRN (Reason: Pain) Admission Data Admit Date/Time: 08/18/23 02:08 Attending Provider: Carol Andrew Admit Provider: Abdulkadir Wilson Primary Care Provider: Ronal WALL Other Providers: Abdulkadir Wilson; Hasmukh Dangelo; Antonio Galicia Coding Level of Care Code 75310 INP/OBS DISCH >30 MIN Diagnoses Swallowed foreign body T18.9XXA Encounter type: initial encounter Urethral foreign body T19.0XXA Encounter type: initial encounter
--- NOTE | 2023-08-18 15:50 | Electrocardiogram Report ---
Test Reason : Blood Pressure : / mmHG Vent. Rate : 067 BPM Atrial Rate : 067 BPM P-R Int : 156 ms QRS Dur : 076 ms QT Int : 366 ms P-R-T Axes : 069 063 067 degrees QTc Int : 386 ms Normal sinus rhythm Normal ECG When compared with ECG of 10-JUL-2023 11:53, No significant change was found Confirmed by Antonio Pereira [id number] on 08/18/2023 3:50:10 PM Referred By: Ronal WALL Confirmed By:Aris Pereira
== END 2023-08-18 16:56 ==
LOC: ED 22:06 → 2E 08-18 03:04 → OR 08-18 03:04 → SUATTDRO 08-18 03:05

== ENCOUNTER 2023-09-03 20:53 | Inpatient (IN) ==
--- NOTE | 2023-09-03 21:54 | Emergency Department Note ---
Impression & Plan Breathing difficult, Esophageal foreign body ED Provider Note NAME: MAGDA [id number] ANAHI AGE: 32 SEX: M : 1990 ARRIVES VIA: Ambulance INFORMANT: Patient, the senior care guards ED PROVIDER(S): Alexander Aggarwal DO CHIEF COMPLAINT: Difficulty breathing HPI: The patient is a 32-year-old male who resides at the senior care who presented to the emergency department with a possible partial airway foreign body. The patient was in restraints and took part of his jumpsuit. He aspirated this and has been having trouble swallowing ever since breathing and swallowing. The patient's been coughing and having difficulty with managing his airway. This occurred approximately 7 PM. ROS: See above HPI for pertinent positives & negatives. A total of 10 systems reviewed and were otherwise negative. PAST MEDICAL HISTORY: See Below PAST SURGICAL HISTORY: See Below FAMILY HISTORY: See Below SOCIAL HISTORY: See Below HOME MEDICATIONS: See Below ALLERGIES: See Below VITALS: See Below PHYSICAL EXAMINATION: GENERAL: The patient is awake and alert. The patient is anxious EYES: The conjunctivae are clear. The pupils are round and reactive. EARS, NOSE, MOUTH AND THROAT: The nose is without any evidence of any deformity. There was bleeding noted in the posterior oropharynx. NECK: The neck is nontender and supple. There is stridor noted RESPIRATORY: Shallow respirations were noted. Stridor was noted with wheezing. CARDIOVASCULAR: Tachycardic and regular heart sounds were noted to auscultation GASTROINTESTINAL: The abdomen is soft. Abdomen is nontender. MUSCULOSKELETAL/EXTREMITIES: There is no evidence of gross deformity full range of motion is noted in the hips and shoulders. SKIN: There is no obvious evidence of any rash. There are no petechiae, pallor or cyanosis noted. NEUROLOGIC: Patient is awake alert and oriented x3 MEDICAL DECISION MAKING: The patient is a 32-year-old male who presented to the emergency department after supposedly swallowing a piece of cloth that he chewed off of his jumpsuit while he was being restrained at the senior care. The patient has a history of similar episodes in the past. Initially the patient was making upper airway noise and noted. He may have a partial airway obstruction. Because of this I consulted pulmonary right away. They presented at the bedside. The patient was sedated and had an emergent bronchoscopy. There did not appear to be any signs of swelling or foreign body in the upper airway as well as below the vocal cords. No foreign body was identified. The patient was sedated for this procedure. After sedation wore off he continued to have difficulty breathing and swallowing. It is possible this represents a lower esophageal blockage with the cough. I discussed his condition with the sewing machine mechanic as well as the [facility]. Triage Nursing notes reviewed. Prior medical records reviewed Vital Signs: reviewed and remarkable for no significant abnormalities Differential diagnosis: Reactive airway disease, pneumonia, pneumothorax, COPD, CHF, infections, cardiac ischemia, pulmonary embolism, musculoskeletal, gastrointestinal, as well as other pathologies. ER treatment provided: See below Diagnostics interpreted by me: ECG: none Cardiac Monitoring: An order was placed for continuous cardiac monitoring. The monitor shows a rate of 92 bpm with sinus rhythm. Laboratory studies: As stated above and show below. Imaging studies: See below. Radiographic imaging was reviewed by myself Consultation(s): I discussed this case with Dr. Bowen who is on-call for pulmonary. I discussed this case with Dr. Martinez who is on-call for gastroenterology. I discussed this case with Dr. Wilson who is on-call for the [facility] group. ED COURSE: Procedures: Procedural Sedation Indication possible airway foreign body. Total time: 23 minutes. Written consent was obtained after the risks and benefits were explained to the patient, including, but not limited to aspiration, allergic reaction, breathing difficulties, cardiac complications, vomiting, pain, event recall, bleeding, and/or infection. Pre-sedation examination and paperwork completed. The patient was on 100% oxygen via NRB prior to the procedure. Continous end tidal CO2 monitoring, pulse oximetry, and cardiac monitoring were utilized. Suction, airway equipment, medications, respiratory equipment, and appropriate personnel were prepared prior to the initiation of the procedure. A time out was taken. Sedation was achieved utilizing 40 mg of ketamine and 80 mg of propofol. After I observed the patient had reached the appropriate level of sedation the main procedure was performed without complication. Sedation was discontinued and the monitoring continued. The patient recovered quickly from the effects of the medication without complication or adverse event. Critical Care: I have personally spent greater than 35 minutes of critical care time in the direct management of this patient. This includes bedside care, interpretation of diagnostic studies, and testing, discussion with consultants, patient, and family members, and other required patient management activities. This 35 minutes is in excess of all separately billable procedures. Past Med/Surg History Medical History (Updated 09/04/23 @ 00:59 by Alexander Aggarwal DO) Choking episode Swallowed foreign body Urethral foreign body Foreign body in urethra Per [facility] discharge summary 07/09/23- patient pulled out bassett and ate 5 ft of catheter tubing and also placed pieces of tubing back into urethra (EGD/cysto done 07/08/23 to remove foreign bodies) - Pt presented to [facility] ED 07/10/23- reinserted another FB into urthetra - reason for upcoming procedure Blindness of left eye Seborrhea capitis Fracture of orbital floor left side - 06/26/23- seen at [facility] ED for "orbital blowout fracture"- following with ophthalmology as outpatient Fracture of nasal bone Gastritis Antisocial personality disorder Surgical History No history of previous surgery not listed on [facility] record Social History Smoking Status: Unknown if ever smoked Hx Alcohol Use: No Hx Substance Use: No Preferred Language: [place] Communication Ability: Unable Visual Impairment: Blindness Rn Spine Required: No Beliefs That Will Affect Care: None Current Living Situation: Other Current Living Situation Comment: inmate at [facility] Ronal Feels Safe at Home: Declines to Answer Assistive Devices: None Allergies Allergies Allergy/AdvReac Type Severity Reaction Status Date / Time haloperidol [From Haldol] Allergy Severe swelling Verified 08/18/23 23:15 of throat Egg Derived Allergy Unknown SWELLING Verified 08/18/23 23:15 OF THROAT Home Meds Home Medications Medication Instructions Recorded Confirmed min oil-zi brendon-pet,w-cetyl al 1 ea topical DAILY 09/03/23 09/03/23 lotion (DermaDaily lotion) omeprazole 40 mg capsule,delayed 40 mg PO DAILY 09/03/23 09/03/23 release selenium sulfide 1 % shampoo 1 applic topical DAILY 09/03/23 09/03/23 Results & Data (ED) Vital Signs Vital Signs - 24 hr 09/03/23 21:00 09/03/23 22:00 09/03/23 22:14 Pulse Rate 127 H 103 H Pulse Rate [Apical] Pulse Rhythm Regular Pulse Rhythm [Apical] Pulse Strength Normal Pulse Strength [Apical] Respiratory Rate 20 Respiratory Effort / Characteristics Non-Labored Grunting Labored Respiratory Depth Normal Respiratory Pattern Blood Pressure 110/94 Blood Pressure [Right Arm] Blood Pressure Mean 99 Blood Pressure Mean [Right Arm] Blood Pressure Position Sitting Pulse Oximetry 90 91 Oxygen Delivery Method Room Air Room Air Oxygen Flow Rate Sepsis Recent Fever Within 48 Hours No Sepsis New/Unexplained Change in Mental Status N/A Sepsis Action Taken by Nursing No Action Required End Tidal CO2 (18-54mmHg) 09/03/23 22:14 09/03/23 22:14 09/03/23 22:42 Pulse Rate 115 H 124 H Pulse Rate [Apical] 112 H Pulse Rhythm Regular Pulse Rhythm [Apical] Regular Pulse Strength Pulse Strength [Apical] Normal Respiratory Rate 18 18 24 Respiratory Effort / Characteristics Non-Labored Respiratory Depth Normal Respiratory Pattern Regular Blood Pressure Blood Pressure [Right Arm] 119/81 133/107 H Blood Pressure Mean Blood Pressure Mean [Right Arm] 93 Blood Pressure Position Pulse Oximetry 96 96 94 Oxygen Delivery Method Room Air Room Air Nasal Cannula Oxygen Flow Rate 2 Sepsis Recent Fever Within 48 Hours Sepsis New/Unexplained Change in Mental Status Sepsis Action Taken by Nursing End Tidal CO2 (18-54mmHg) 25 09/03/23 22:45 09/03/23 22:50 09/03/23 22:55 Pulse Rate 112 H 116 H 113 H Pulse Rate [Apical] Pulse Rhythm Pulse Rhythm [Apical] Pulse Strength Pulse Strength [Apical] Respiratory Rate 28 H 16 12 Respiratory Effort / Characteristics Respiratory Depth Respiratory Pattern Blood Pressure Blood Pressure [Right Arm] 151/103 H 138/72 138/72 Blood Pressure Mean Blood Pressure Mean [Right Arm] Blood Pressure Position Pulse Oximetry 98 99 97 Oxygen Delivery Method Nasal Cannula Nasal Cannula Nasal Cannula Oxygen Flow Rate 2 2 2 Sepsis Recent Fever Within 48 Hours Sepsis New/Unexplained Change in Mental Status Sepsis Action Taken by Nursing End Tidal CO2 (18-54mmHg) 36 24 36 09/03/23 23:00 09/03/23 23:06 09/03/23 23:15 Pulse Rate 110 H 108 H 105 H Pulse Rate [Apical] Pulse Rhythm Pulse Rhythm [Apical] Pulse Strength Pulse Strength [Apical] Respiratory Rate 24 18 22 Respiratory Effort / Characteristics Respiratory Depth Respiratory Pattern Blood Pressure 114/78 106/59 L Blood Pressure [Right Arm] 106/74 Blood Pressure Mean 90 74 Blood Pressure Mean [Right Arm] Blood Pressure Position Pulse Oximetry 95 97 96 Oxygen Delivery Method Room Air Room Air Oxygen Flow Rate Sepsis Recent Fever Within 48 Hours Sepsis New/Unexplained Change in Mental Status Sepsis Action Taken by Nursing End Tidal CO2 (18-54mmHg) 28 09/03/23 23:30 Pulse Rate 107 H Pulse Rate [Apical] Pulse Rhythm Pulse Rhythm [Apical] Pulse Strength Pulse Strength [Apical] Respiratory Rate 22 Respiratory Effort / Characteristics Respiratory Depth Respiratory Pattern Blood Pressure 135/84 Blood Pressure [Right Arm] Blood Pressure Mean 101 Blood Pressure Mean [Right Arm] Blood Pressure Position Pulse Oximetry 96 Oxygen Delivery Method Room Air Oxygen Flow Rate Sepsis Recent Fever Within 48 Hours Sepsis New/Unexplained Change in Mental Status Sepsis Action Taken by Nursing End Tidal CO2 (18-54mmHg) Home Medications Current Medication List: was personally reviewed by me Laboratory Data Attestation: I reviewed the patient's lab results. 09/03/23 22:05 09/03/23 22:05 Lab Results 09/03/23 09/03/23 Range/Units 22:05 22:19 WBC 9.77 (4.8-10.8) K/ul RBC 4.94 (4.70-6.10) M/uL Hgb 14.3 (14.0-18.0) g/dl POC Hgb 13.9 L (14.0-18.0) g/dl Hct 41.2 L (42.0-52.0) % POC Hct 41 L (42-52) % MCV 83.4 (80.0-100.0) fL MCH 28.9 (25.0-34.0) pg MCHC 34.7 (32.0-36.0) g/dL RDW Std Deviation 38.8 (36.4-46.3) fL RDW Coeff of Tiffany 13.0 (11.5-14.5) % Plt Count 199 (130-400) K/uL MPV 11.5 (9.4-12.4) fL Immature Gran % (Auto) 0.2 % Neut % (Auto) 87.8 % Lymph % (Auto) 7.4 % Stanly % (Auto) 3.9 % Eos % (Auto) 0.4 % Baso % (Auto) 0.3 % Neut # (Auto) 8.58 H (1.40-6.50) K/uL Lymph # (Auto) 0.72 L (1.20-3.40) K/uL Stanly # (Auto) 0.38 (0.11-0.59) K/uL Eos # (Auto) 0.04 (0.00-0.50) K/uL Baso # (Auto) 0.03 (0.00-0.20) K/uL Immature Gran # (Auto) 0.02 (0.01-0.20) K/uL PT 11.8 (9.0-12.0) Seconds INR 1.1 (0.9-1.1) APTT 27 (21-31) Seconds PTT Ratio 1.0 POC Sodium 142 (135-144) mmol/L Sodium 141 (136-145) mmol/L POC Potassium 3.8 (3.3-5.0) mmol/L Potassium 3.8 (3.5-5.1) mmol/L POC Chloride 101 (101-112) mmol/L Chloride 105 (98-107) mmol/L Carbon Dioxide 30 (21-32) mmol/L POC Total CO2 30 (24-31) mmol/L Anion Gap 6 (3-11) POC Anion Gap 16.0 (16-25) mmol/L POC BUN 22 H (7-18) mg/dl BUN 23 (6-23) mg/dl Creatinine 0.88 (0.6-1.4) mg/dl POC Creatinine 0.8 (0.6-1.3) mg/dl Est Cr Clr Drug Dosing 124.4 ml/min Est GFR ( Amer) 131.7 ml/min Est GFR (Non-Af Amer) 113.7 ml/min BUN/Creatinine Ratio 26.1 H (10-20) Glucose 130 H (70-99(Fasting)) mg/dl POC Glucose (other) 129 H (70-99) mg/dl Calcium 9.4 (8.6-10.3) mg/dl POC Ioniz Calcium Janet 1.20 (1.12-1.32) mmol/l Total Bilirubin 0.4 (0.2-1.0) mg/dl AST 16 (13-39) U/L ALT 10 (7-52) U/L Alkaline Phosphatase 75 (34-104) U/L Troponin I High Sens 2.5 (0-20) pg/ml Total Protein 7.3 (6.0-8.3) gm/dl Albumin 4.7 (3.4-5.0) gm/dl Globulin 2.6 (2.5-4.0) gm/dl Albumin/Globulin Ratio 1.8 (0.9-2) Lipase 22 (11-82) U/L Administered Medications Promethazine HCl 12.5 mg/ (Sodium Chloride) 50.5 mls @ 202 mls/hr IV Q6H PRN PRN Reason: Nausea And Vomiting Stop: 10/03/23 23:37 Last Infusion: 09/04/23 00:48 Dose: Infused Documented By: Admin: 09/04/23 00:12 Dose: 202 mls/hr Documented By: LUIS Discontinued Medications Ketamine HCl 40 mg/ Syringe 8.8 mls @ 8.8 mls/min IV NOW ONE Stop: 09/03/23 22:33 Last Admin: 09/03/23 22:37 Dose: 8.8 mls/min Documented By: JEANMARIE Sodium Chloride (Nss) 1,000 mls @ 999 mls/hr IV .Q1H1M ONE Stop: 09/03/23 23:36 Last Infusion: 09/04/23 00:15 Dose: Infused Documented By: Admin: 09/03/23 23:07 Dose: 999 mls/hr Documented By: SUE Lidocaine HCl (Xylocaine 1%/Sod Bicarb 20 Ml Vial) Confirm Administered Dose 1 ml INFIL .STK-MED ONE Stop: 09/03/23 22:34 Last Admin: 09/03/23 23:08 Dose: Not Given Documented By: SUE Lorazepam (Lorazepam 1 Mg/1 Ml Syr Ed Inj Use) 1 mg IV ONE STA Stop: 09/03/23 23:22 Last Admin: 09/03/23 23:27 Dose: 1 mg Documented By: LUIS Miscellaneous (Rapid Sequence Induction Bag) Confirm Administered Dose 1 each N/A .STK-MED ONE Stop: 09/03/23 22:05 Last Admin: 09/03/23 23:08 Dose: Not Given Documented By: SUE Ondansetron HCl (Ondansetron Inj 2 Mg/Ml 2 Ml Vial) 4 mg IV NOW STA Stop: 09/03/23 22:26 Last Admin: 09/03/23 22:25 Dose: 4 mg Documented By: SUE Propofol (Propofol Iv Emulsion 10 Mg/Ml 20 Ml Vial) Confirm Administered Dose 200 mg IV .STK-MED ONE Stop: 09/03/23 22:31 Last Admin: 09/03/23 22:37 Dose: 80 mg Documented By: JEANMARIE Co-signed By: LUIS Imaging Data Attestation: I personally reviewed and interpreted this imaging study as follows: My Impression: 1 view chest x-ray was obtained in the emergency department. My interpretation is no free air or definite infiltrate, final report below. Discharge Plan Visit Data Chief Complaint: Choking Stated Complaint: Choking ED Provider: Alexander Aggarwal Discharge Problem: Breathing difficult, Esophageal foreign body Patient Disposition: Admitted As Inpatient Discharge Instructions Interventions: ED Discharge Assessment Last Done: 09/04/23 00:20 Discharge Problem: Esophageal foreign body Qualifiers: Encounter type: initial encounter Qualified Code(s): T18.108A - Unspecified foreign body in esophagus causing other injury, initial encounter
[2023-09-03] MEDS: ONDANSETRON INJ 2 MG/ML 2 ML VIAL IV STA (22:25)
[2023-09-03] MEDS ORDERED: STAT IV/IM STA (22:27)
[2023-09-03 22:33] LABS: Basophils # (auto) 0.03 K/uL (0.00-0.20); Basophils % (auto) 0.3 %; Eosinophils # (auto) 0.04 K/uL (0.00-0.50); Eosinophils % (auto) 0.4 %; Hematocrit (blood only) 41.2 % (42.0-52.0); Hemoglobin 14.3 g/dl (14.0-18.0); Immature Granulocytes # (auto) 0.02 K/uL (0.01-0.20); Immature Granulocytes % (auto) 0.2 %; Lymphocytes # (auto) 0.72 K/uL (1.20-3.40); Lymphocytes % (auto) 7.4 %; Mean Corpuscular Hemoglobin 28.9 pg (25.0-34.0); Mean Corpuscular Hgb Conc 34.7 g/dL (32.0-36.0); Mean Corpuscular Volume 83.4 fL (80.0-100.0); Mean Platelet Volume 11.5 fL (9.4-12.4); Monocytes # (auto) 0.38 K/uL (0.11-0.59); Monocytes % (auto) 3.9 %; Neutrophils # (auto) 8.58 K/uL (1.40-6.50); Neutrophils % (auto) 87.8 %; Platelet Count 199 K/uL (130-400); RDW Standard Deviation 38.8 fL (36.4-46.3); Red Blood Count 4.94 M/uL (4.70-6.10); White Blood Count 9.77 K/ul (4.8-10.8)
[2023-09-03] MEDS: PROPOFOL IV EMULSION 10 MG/ML 20 ML VIAL IV ONE (22:37)
[2023-09-03] MEDS: KETAMINE HCL IV ONE (22:37)
[2023-09-03 22:40] LABS: iSTAT Creatinine 0.8 mg/dl (0.6-1.3); iSTAT Hemoglobin 13.9 g/dl (14.0-18.0); iSTAT Ionized Calcium 1.2 mmol/l (1.12-1.32); iSTAT Potassium 3.8 mmol/L (3.3-5.0)
[2023-09-03 22:50] LABS: Albumin Globulin Ratio 1.8 (0.9-2); Albumin Level 4.7 gm/dl (3.4-5.0); BUN Creatinine Ratio 26.1 (10-20); Bilirubin,Total 0.4 mg/dl (0.2-1.0); Calcium 9.4 mg/dl (8.6-10.3); Creatinine Clr Calc Pharmacy 124.4 ml/min; Est GFR (African American) 131.7 ml/min; Est GFR (Non-African American) 113.7 ml/min; Globulin 2.6 gm/dl (2.5-4.0); Potassium 3.8 mmol/L (3.5-5.1); Total Protein 7.3 gm/dl (6.0-8.3)
[2023-09-03 22:56] LABS: Troponin I High Sensitivity 2.5 pg/ml (0-20)
--- NOTE | 2023-09-03 22:58 | Procedure Note ---
Procedure Note Date of Service September 03, 2023 Note PREOPERATIVE DIAGNOSIS: Possible airway obstruction POSTOPERATIVE DIAGNOSIS: No evidence of airway PROCEDURE PERFORMED: Flexible fiberoptic bronchoscopy COMPLICATIONS: None. INDICATION: Rule out airway obstruction PROCEDURE: Procedure was done emergently as patient was delirious and agitated. Sedation was performed by the ER physician utilizing ketamine and propofol. Please see a separate note for vital sign monitoring and sedation. Bite-block was inserted in the airway. The bronchoscope was inserted through the bite block. The epiglottis and vocal cords were visualized. There was some minimal dried blood noted along the uvula which was suctioned. There was no evidence of obstruction near the vocal cords or epiglottis. No edema was noted. The bronchoscope was easily passed through the vocal cords after 5 cc of bu ffered lidocaine was instilled on the epiglottic region. Bilateral tracheobronchial tree inspection was performed. Trachea appeared normal. Lily appeared sharp. Scant secretions were noted bilaterally and suctioned free. Extensive evaluation of the tracheobronchial tree did not reveal any signs of airway obstruction or foreign body. The scope was then completely withdrawn. The patient tolerated the procedure well. Recommendations: No airway obstruction seen or foreign body. Consider consulting GI for EGD. Coding CPT Codes Pulmonary/Thoracic - Pulmonary and Thoracic: 72125 Dx bronchoscopy/wash ([id number]) [facility] Procedure Codes (Charges) Pulmonary/Thoracic Procedure 1: Pulmonary and Thoracic: 53519 Dx bronchoscopy/wash
[2023-09-03 22:59] LABS: INR 1.1 (0.9-1.1); Partial Thromboplastin Time 27 Seconds (21-31); Prothrombin Time 11.8 Seconds (9.0-12.0)
[2023-09-03] MEDS: SODIUM CHLORIDE 0.9% 1,000 ML IV ONE (23:07)
[2023-09-03] MEDS: RAPID SEQUENCE INDUCTION BAG ONE (23:08)
[2023-09-03] MEDS: XYLOCAINE 1%/SOD BICARB 20 ML VIAL INFIL ONE (23:08)
--- NOTE | 2023-09-03 23:14 | Pulmonary Consultation ---
Date of Consultation September 03, 2023 Assessment & Plan (1) Choking episode: Bedside bronchoscopy did not reveal any evidence of foreign body. Etiology for the patient's coughing and gagging is unclear, but given his prior history of foreign body ingestion, would strongly consider consulting GI for EGD. Would a lso recommend obtaining a CT of his chest for further evaluation. History of Present Illness Reason for Consultation: Airway obstruction History of Present Illness 32-year-old male with past medical history of severe psychiatric illness with numerous attempts to swallowing pens and inserting foreign objects in various orifices. I was urgently consulted by the ER due to concerns of possible foreign body in the patient's airway. Reportedly the patient took a bite of his jumpsuit and there was concern that there may have been obstruction in his airway. I emergently performed a bronchoscopy after adequate sedation was achieved and evaluated the airway. No foreign body was seen. Prior to the procedure, the patient was frequently gagging and coughing. His vital signs remained stable and he was on minimal supplemental oxygen. Tolerated the procedure well otherwise. His chest x-ray was personally reviewed which does not reveal any significant acute findings. Allergies Allergy/AdvReac Type Severity Reaction Status Date / Time haloperidol [From Haldol] Allergy Severe swelling Verified 08/18/23 23:15 of throat Egg Derived Allergy Unknown SWELLING Verified 08/18/23 23:15 OF THROAT Home Medications Medication Instructions Recorded Confirmed Type min oil-zi brendon-pet,w-cetyl al 1 ea topical DAILY 09/03/23 09/03/23 History lotion (DermaDaily lotion) omeprazole 40 mg capsule,delayed 40 mg PO DAILY 09/03/23 09/03/23 History release selenium sulfide 1 % shampoo 1 applic topical DAILY 09/03/23 09/03/23 History Patient History Medical History (Updated 09/03/23 @ 23:17 by Riley Barnard MD) Choking episode Swallowed foreign body Urethral foreign body Foreign body in urethra Per [facility] discharge summary 07/09/23- patient pulled out bassett and ate 5 ft of catheter tubing and also placed pieces of tubing back into urethra (EGD/cysto done 07/08/23 to remove foreign bodies) - Pt presented to [facility] ED 07/10/23- reinserted another FB into urthetra - reason for upcoming procedure Blindness of left eye Seborrhea capitis Fracture of orbital floor left side - 06/26/23- seen at [facility] ED for "orbital blowout fracture"- following with ophthalmology as outpatient Fracture of nasal bone Gastritis Antisocial personality disorder Surgical History No history of previous surgery not listed on [facility] record Social History Smoking Status: Unknown if ever smoked Hx Alcohol Use: No Hx Substance Use: No Preferred Language: Cypriot Communication Ability: Unable Visual Impairment: Blindness Speed Reading Teacher Required: No Beliefs That Will Affect Care: None Current Living Situation: Other Current Living Situation Comment: inmate at [facility] Feels Safe at Home: Declines to Answer Assistive Devices: None Review of Systems Review of Systems: All systems reviewed & are unremarkable except as noted in HPI & below Physical Exam Physical Exam: Constitutional: Patient appears to be of their stated age. Patient is severely agitated and frequently coughing and gagging. Eyes: Pupils are equal round and reactive to light. Conjunctivae are normal. Anicteric sclera. Ears nose, mouth and throat: Mallampati class 1. Mild amounts of dried blood noted on the patient's uvula. Neck: Trachea is midline. Visual inspection is normal. Respiratory: Clear to auscultation bilaterally. No use of accessory muscles. No significant clubbing noted. Cardiovascular: Regular rate and rhythm. No murmurs. No edema. Gastrointestinal: Normal bowel sounds, soft, nontender and nondistended. No hepatosplenomegaly noted. Musculoskeletal: No cyanosis. Patient is able to move all extremities. Strength is 5 out of 5 in the upper and lower extremities. Skin: No rashes, warm dry and intact. Neurologic: No obvious focal neurological deficits seen. Psychiatric: Severely agitated and not participating in exam Results & Data Results & Data Vital Signs (Past 12 Hours) Vital Signs Pulse Pulse Resp BP BP Pulse Ox O2 Del Method 09/03/23 23:00 110 H 24 106/74 95 Room Air 09/03/23 22:55 113 H 12 138/72 97 Nasal Cannula 09/03/23 22:50 116 H 16 138/72 99 Nasal Cannula 09/03/23 22:45 112 H 28 H 151/103 H 98 Nasal Cannula 09/03/23 22:42 124 H 24 133/107 H 94 Nasal Cannula 09/03/23 22:14 115 H 18 96 Room Air 09/03/23 22:14 112 H 18 119/81 96 Room Air 09/03/23 22:14 91 Room Air 09/03/23 21:00 127 H 20 110/94 90 Room Air O2 Flow Rate 09/03/23 23:00 09/03/23 22:55 2 09/03/23 22:50 2 09/03/23 22:45 2 09/03/23 22:42 2 09/03/23 22:14 09/03/23 22:14 09/03/23 22:14 09/03/23 21:00 PG Care Time/CCT Total # of Minutes Spent Total Time Spent with Patient: Total time spent is greater than 50% in coordination of care (as documented) at patient's floor/unit and/or counseling patient: Coding Level of Care Code 29493 IN/OBS CONSULT LVL 4,60M Diagnoses Choking episode R09.89
--- NOTE | 2023-09-03 23:22 | Emergency Department Note ---
Pre Sedation Assessment Vital Signs Pulse Pulse Resp BP BP Pulse Ox O2 Del Method 09/03/23 23:30 107 H 22 135/84 96 Room Air 09/03/23 23:15 105 H 22 106/59 L 96 09/03/23 23:06 108 H 18 114/78 97 Room Air 09/03/23 23:00 110 H 24 106/74 95 Room Air 09/03/23 22:55 113 H 12 138/72 97 Nasal Cannula 09/03/23 22:50 116 H 16 138/72 99 Nasal Cannula 09/03/23 22:45 112 H 28 H 151/103 H 98 Nasal Cannula 09/03/23 22:42 124 H 24 133/107 H 94 Nasal Cannula 09/03/23 22:14 115 H 18 96 Room Air 09/03/23 22:14 112 H 18 119/81 96 Room Air 09/03/23 22:14 91 Room Air 09/03/23 22:00 103 H 09/03/23 21:00 127 H 20 110/94 90 Room Air O2 Flow Rate 09/03/23 23:30 09/03/23 23:15 09/03/23 23:06 09/03/23 23:00 09/03/23 22:55 2 09/03/23 22:50 2 09/03/23 22:45 2 09/03/23 22:42 2 09/03/23 22:14 09/03/23 22:14 09/03/23 22:14 09/03/23 22:00 09/03/23 21:00 Cardiovascular RRR, no murmur, no edema + tachycardic + S1 normal and + S2 normal + capillary refill normal; no edema Respiratory normal respiratory effort, lungs clear to auscultation + cough, + tachypneic and + grunting Pre-Sedation Airway Assessment Smoking Status: Unknown if ever smoked Short, Thick Neck: No Thyromental Distance: > or= 3.5 Finger Breadths Oral Cavity: + WNL Mallampati Class: IV ASA: ASA1 NPO Status Date of Last Intake of Fluids: 09/03/23 Time of Last Intake of Fluids: 17:00 Last Oral Intake of Fluids Comment: 2-3 cups of water Date of Last Intake of Solid Food: 09/03/23 Time of Last Intake of Solid Foods: 17:00 Last Intake of Solids Comment: rice, fish, chocalate cake, tortillas Procedure Planning Contraindications for Sedation: none Current Medications Reviewed: Yes Notes The planned sedation has been discussed with the patient. Informed Consent was obtained. I have identified the patient, determined the appropriateness of sedation and have assessed the patient immediately prior to the procedure. All medicine(s) and interventions are by my order.
--- NOTE | 2023-09-03 23:22 | Emergency Department Note ---
Post Sedation Assessment Vital Signs Pulse Pulse Resp BP BP Pulse Ox O2 Del Method 09/03/23 23:30 107 H 22 135/84 96 Room Air 09/03/23 23:15 105 H 22 106/59 L 96 09/03/23 23:06 108 H 18 114/78 97 Room Air 09/03/23 23:00 110 H 24 106/74 95 Room Air 09/03/23 22:55 113 H 12 138/72 97 Nasal Cannula 09/03/23 22:50 116 H 16 138/72 99 Nasal Cannula 09/03/23 22:45 112 H 28 H 151/103 H 98 Nasal Cannula 09/03/23 22:42 124 H 24 133/107 H 94 Nasal Cannula 09/03/23 22:14 115 H 18 96 Room Air 09/03/23 22:14 112 H 18 119/81 96 Room Air 09/03/23 22:14 91 Room Air 09/03/23 22:00 103 H 09/03/23 21:00 127 H 20 110/94 90 Room Air O2 Flow Rate 09/03/23 23:30 09/03/23 23:15 09/03/23 23:06 09/03/23 23:00 09/03/23 22:55 2 09/03/23 22:50 2 09/03/23 22:45 2 09/03/23 22:42 2 09/03/23 22:14 09/03/23 22:14 09/03/23 22:14 09/03/23 22:00 09/03/23 21:00 Recovery Score Activity: Moves 4 extremities Respiration: Deep Breath/Cough Circulation: +/-20% PreAnes Value Consciousness: Fully Awake Oxygen Saturation: > 92% On Room Air Post Anesthesia Score: 10 Discharge Sedation Level of Care: Fast Track Phase II Unexpected Event: None Post Sedation Plan On clinical assessment, the patient appears to have tolerated the sedation without complications. Patient is recovering as anticipated. Patient will continue to be monitored by nursing and may be discharged when sedation discharge criteria are met per below protocol. Upon Completions of procedure up to 15 minutes continue every 5 minute vital signs and the P.A.R. score; then discharge to a Phase I or Fast Track to Phase II per the following guidelines: * Discharge Patient to appropriate Phase II area if PAR is 8 or greater or return to pre- procedure baseline. The post - procedure orders will be as directed. * If PAR score is less than 8 or not return to pre-procedure baseline then patient will follow Phase I monitoring till PAR is reached for Phase II. The Phase I may be done in procedure room or may call to secure a Phase I area. * If naloxone or flumazenil are used for reversal, hold in Phase I for continued monitoring from when last reversal dose was given for a minimum of 60 minutes or longer pending the nurse and/or physician discretion of patient condition before discharge to Phase II. Please call the Sedation Physician to re-evaluate and complete post-note for discharge to Phase II area. Do NOT discharge from procedure sedation or Phase 1 until post- sedation evalua tion note is complete by procedure /sedation MD Sedation Discharge Instructions to be given to the patient at discharge to home. Sedation Data Time Out Team Members Agree on the Following: Correct Patient, Correct Procedure and Allergies Verified Team Agrees: Yes Time Out Performed Time: 22:37 Sedation Times Sedation Start Date: 09/03/23 Sedation Start Time: 22:37 Sedation End Date: 09/03/23 Sedation End Time: 23:00 Total Sedation Time: 23 Procedure Times Procedure Start Time:: 22:40 Procedure End Time: 22:47
[2023-09-03] MEDS: LORazepam 1 MG/1 ML SYR ED Inj Use IV STA (23:27)
[2023-09-03] MEDS ORDERED: LORazepam 1 MG in SYRINGE 0.5 ML IV PRN (23:35)
--- NOTE | 2023-09-03 23:39 | History & Physical Report ---
Date of Service September 03, 2023 Assessment & Plan (1) Esophageal foreign body: (2) Choking episode: (3) Foreign body ingestion: (4) Chronic abdominal pain: (5) Rectal pain: Plan Esophageal foreign body/foreign body ingestion/choking episode- Patient underwent emergent bronchoscopy in the emergency department with negative findings Gastroenterology had been contacted by phone, but doubt no emergent endoscopy needed to be done with a negative bronchoscopy, and will be assessed in the a.m. Patient actively attempting to retch at this time, with difficult to determine the nature of the stimulus Pantoprazole 40 mg IV daily LR at 80 mL/h x 1 L Zofran 4 mg IV every 6 hours as needed Phenergan 12.5 mg IV every 6 hours as needed Acetaminophen 1 g IV every 8 hours as needed for mild pain or fever Lorazepam 1 mg IV every 8 hours as needed Admit to monitored bed with consult to pulmonology Gastroenterology has been consulted by the ED History of Present Illness Chief Complaint: The patient was brought to the emergency department from the halfway, due to concerns regarding possible partial airway foreign body after he reportedly ate part of his jumpsuit Primary Care Provider: MAE Villeda The patient is a 32-year-old male prisoner with past medical history including multiple admissions for foreign body ingestions requiring endoscopy, multiple admissions for placement of foreign bodies urologically,, chronic abdominal pain, rectal pain, fracture of nasal bone, and blindness left eye. Patient brought into the emergency department from the halfway due to possible airway foreign body after he reportedly ingested part of his jumpsuit. He underwent emergent bronchoscopy by Dr. De Los Santos while in the emergency department, and did not find any obstructive element. He was referred to the medical service for admission for observation overnight Allergies Allergy/AdvReac Type Severity Reaction Status Date / Time haloperidol [From Haldol] Allergy Severe swelling Verified 08/18/23 23:15 of throat Egg Derived Allergy Unknown SWELLING Verified 08/18/23 23:15 OF THROAT Home Medications Medication Instructions Recorded Confirmed Type min oil-zi brendon-pet,w-cetyl al 1 ea topical DAILY 09/03/23 09/03/23 History lotion (DermaDaily lotion) omeprazole 40 mg capsule,delayed 40 mg PO DAILY 09/03/23 09/03/23 History release selenium sulfide 1 % shampoo 1 applic topical DAILY 09/03/23 09/03/23 History Past Med/Surg History Medical History (Updated 09/04/23 @ 04:18 by Abdulkadir Wilson MD) Choking episode Swallowed foreign body Urethral foreign body Foreign body in urethra Per [facility] discharge summary 07/09/23- patient pulled out bassett and ate 5 ft of catheter tubing and also placed pieces of tubing back into urethra (EGD/cysto done 07/08/23 to remove foreign bodies) - Pt presented to [place] ED 07/10/23- reinserted another FB into urthetra - reason for upcoming procedure Blindness of left eye Seborrhea capitis Fracture of orbital floor left side - 06/26/23- seen at [facility] ED for "orbital blowout fracture"- following with ophthalmology as outpatient Fracture of nasal bone Gastritis Antisocial personality disorder Surgical History No history of previous surgery not listed on [facility] record Social History Smoking Status: Former smoker Do You Dip or Chew Tobacco: No; Hx Alcohol Use: No Hx Substance Use: No Preferred Language: Bengali Communication Ability: Effective Visual Impairment: Blindness Art 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 Neck--supple. No JVD. No bruits. Thyroid normal, trachea midline, no adenopathy. Heart--normal S1 and S2. No murmurs, rubs or gallops. Lungs--clear bilaterally, no respiratory distress, no accessory muscle use. Abdomen--normal bowel sounds and soft. Nontender. Nondistended, no hernias or masses, no organomegaly. Extremities--No edema. There are good distal pulses b/l. Dermatologic--normal skin turgor, normal color, no abnormal lymph nodes, no rash. Neurologic--cranial nerves II through XII grossly intact. Rheumatologic--normal range of motion. Psychiatric--actively attempting to retch. Results & Data Results & Data Vital Signs (Past 12 Hours) Vital Signs Pulse Pulse Resp BP BP Pulse Ox O2 Del Method 09/03/23 23:06 108 H 18 114/78 97 Room Air 09/03/23 23:00 110 H 24 106/74 95 Room Air 09/03/23 22:55 113 H 12 138/72 97 Nasal Cannula 09/03/23 22:50 116 H 16 138/72 99 Nasal Cannula 09/03/23 22:45 112 H 28 H 151/103 H 98 Nasal Cannula 09/03/23 22:42 124 H 24 133/107 H 94 Nasal Cannula 09/03/23 22:14 115 H 18 96 Room Air 09/03/23 22:14 112 H 18 119/81 96 Room Air 09/03/23 22:14 91 Room Air 09/03/23 21:00 127 H 20 110/94 90 Room Air O2 Flow Rate 09/03/23 23:06 09/03/23 23:00 09/03/23 22:55 2 09/03/23 22:50 2 09/03/23 22:45 2 09/03/23 22:42 2 09/03/23 22:14 09/03/23 22:14 09/03/23 22:14 09/03/23 21:00 Laboratory Results Laboratory Results WBC 9.77 K/ul (4.8-10.8) 09/03/23 22:05 RBC 4.94 M/uL (4.70-6.10) 09/03/23 22:05 Hgb 14.3 g/dl (14.0-18.0) 09/03/23 22:05 POC Hgb 13.9 g/dl (14.0-18.0) L 09/03/23 22:19 Hct 41.2 % (42.0-52.0) L 09/03/23 22:05 POC Hct 41 % (42-52) L 09/03/23 22:19 MCV 83.4 fL (80.0-100.0) 09/03/23 22:05 MCH 28.9 pg (25.0-34.0) 09/03/23 22:05 MCHC 34.7 g/dL (32.0-36.0) 09/03/23 22:05 RDW Std Deviation 38.8 fL (36.4-46.3) 09/03/23 22:05 RDW Coeff of Tiffany 13.0 % (11.5-14.5) 09/03/23 22:05 Plt Count 199 K/uL (130-400) 09/03/23 22:05 MPV 11.5 fL (9.4-12.4) 09/03/23 22:05 Immature Gran % (Auto) 0.2 % 09/03/23 22:05 Neut % (Auto) 87.8 % 09/03/23 22:05 Lymph % (Auto) 7.4 % 09/03/23 22:05 Calvert % (Auto) 3.9 % 09/03/23 22:05 Eos % (Auto) 0.4 % 09/03/23 22:05 Baso % (Auto) 0.3 % 09/03/23 22:05 Neut # (Auto) 8.58 K/uL (1.40-6.50) H 09/03/23 22:05 Lymph # (Auto) 0.72 K/uL (1.20-3.40) L 09/03/23 22:05 Calvert # (Auto) 0.38 K/uL (0.11-0.59) 09/03/23 22:05 Eos # (Auto) 0.04 K/uL (0.00-0.50) 09/03/23 22:05 Baso # (Auto) 0.03 K/uL (0.00-0.20) 09/03/23 22:05 Immature Gran # (Auto) 0.02 K/uL (0.01-0.20) 09/03/23 22:05 PT 11.8 Seconds (9.0-12.0) 09/03/23 22:05 INR 1.1 (0.9-1.1) 09/03/23 22:05 APTT 27 Seconds (21-31) 09/03/23 22: PTT Ratio 1.0 09/03/23 22:05 POC Sodium 142 mmol/L (135-144) 09/03/23 22:19 Sodium 141 mmol/L (136-145) 09/03/23 22:05 POC Potassium 3.8 mmol/L (3.3-5.0) 09/03/23 22:19 Potassium 3.8 mmol/L (3.5-5.1) 09/03/23 22:05 POC Chloride 101 mmol/L (101-112) 09/03/23 22:19 Chloride 105 mmol/L (98-107) 09/03/23 22:05 Carbon Dioxide 30 mmol/L (21-32) 09/03/23 22:05 POC Total CO2 30 mmol/L (24-31) 09/03/23 22:19 Anion Gap 6 (3-11) 09/03/23 22:05 POC Anion Gap 16.0 mmol/L (16-25) 09/03/23 22:19 POC BUN 22 mg/dl (7-18) H 09/03/23 22:19 BUN 23 mg/dl (6-23) 09/03/23 22:05 Creatinine 0.88 mg/dl (0.6-1.4) 09/03/23 22:05 POC Creatinine 0.8 mg/dl (0.6-1.3) 09/03/23 22:19 Est Cr Clr Drug Dosing 124.4 ml/min 09/03/23 22:05 Est GFR ( Amer) 131.7 ml/min 09/03/23 22:05 Est GFR (Non-Af Amer) 113.7 ml/min 09/03/23 22:05 BUN/Creatinine Ratio 26.1 (10-20) H 09/03/23 22:05 Glucose 130 mg/dl (70-99(Fasting)) H 09/03/23 22:05 POC Glucose (other) 129 mg/dl (70-99) H 09/03/23 22:19 Calcium 9.4 mg/dl (8.6-10.3) 09/03/23 22:05 POC Ioniz Calcium Janet 1.20 mmol/l (1.12-1.32) 09/03/23 22:19 Total Bilirubin 0.4 mg/dl (0.2-1.0) 09/03/23 22:05 AST 16 U/L (13-39) 09/03/23 22:05 ALT 10 U/L (7-52) 09/03/23 22:05 Alkaline Phosphatase 75 U/L (34-104) 09/03/23 22:05 Troponin I High Sens 2.5 pg/ml (0-20) 09/03/23 22:05 Total Protein 7.3 gm/dl (6.0-8.3) 09/03/23 22:05 Albumin 4.7 gm/dl (3.4-5.0) 09/03/23 22:05 Globulin 2.6 gm/dl (2.5-4.0) 09/03/23 22:05 Albumin/Globulin Ratio 1.8 (0.9-2) 09/03/23 22:05 Lipase 22 U/L (11-82) 09/03/23 22:05 Code Status & VTE Plan Code Status Full code VTE Prophylaxis Plan VTE Prophylaxis will be ordered: Yes PG Care Time/CCT Total # of Minutes Spent Total Time Spent with Patient: Total time spent is greater than 50% in coordination of care (as documented) at patient's floor/unit and/or counseling patient: Coding Level of Care Code 57195 INT INP/OBS CARE 2/55MIN Diagnoses Esophageal foreign body T18.108A Encounter type: initial encounter Choking episode R09.89 Foreign body ingestion T18.9XXA Chronic abdominal pain R10.9; G89.29 Rectal pain K62.89 (1) Esophageal foreign body Encounter type: initial encounter Qualified Code(s): T18.108A - Unspecified foreign body in esophagus causing other injury, initial encounter
[2023-09-04] MEDS: PROMETHAZINE HCL 12.5 MG in SODIUM CHLORIDE 0.9% 50 ML IV PRN (00:12)
[2023-09-04] MEDS: LACTATED RINGER'S 1,000 ML IV STA (01:10)
[2023-09-04] MEDS ORDERED: ONDANSETRON INJ 2 MG/ML 2 ML VIAL IV PRN (03:00)
[2023-09-04] MEDS: ACETAMINOPHEN 1,000 MG/100 ML VIAL IV PRN (05:50)
--- NOTE | 2023-09-04 09:42 | XRay Report ---
XR chest 1V portable CLINICAL HISTORY: Chest pain, nonspecific TECHNIQUE: Single frontal radiograph of the chest was obtained. Comparison: Comparison is made to chest radiograph 08/20/2023 FINDINGS: No lines and tubes are seen. The cardiomediastinal silhouette is normal. The lungs are clear. No evid ence of pleural effusion or pneumothorax. IMPRESSION: No acute chest disease. ACT 112: Negative or not required by law. Electronically signed by: Farzad Scott M.D. 09/04/2023 9:41 AM
[2023-09-04] MEDS ORDERED: COUGH DROP (SUGAR FREE) LOZ 24 LOZ/1 BOX BUCCAL PRN (10:51)
[2023-09-04] MEDS: COUGH DROP (SUGAR FREE) LOZ 24 LOZ/1 BOX BUCCAL ONE (10:55)
[2023-09-04] MEDS ORDERED: PANTOprazole 40 MG in SYRINGE 0 ML IV SCH (11:00)
--- NOTE | 2023-09-04 12:13 | Discharge Summary ---
Date of Service September 04, 2023 Admission HPI Per Admitting Provider The patient is a 32-year-old male prisoner with past medical history including multiple admissions for foreign body ingestions requiring endoscopy, multiple admissions for placement of foreign bodies urologically,, chronic abdominal pain, rectal pain, fracture of nasal bone, and blindness left eye. Patient brought into the emergency department from the sn[facility] due to possible airway foreign body after he reportedly ingested part of his jumpsuit. He underwent emergent bronchoscopy by Dr. De Los Santos while in the emergency department, and did not find any obstructive element. He was referred to the medical service for admission for observation overnight Principal Diagnosis Choking episode without foreign body in the airway Discharge Exam General-alert and oriented x3, no fever, no chills HEENT-head atraumatic and normocephalic, pupils equal and reactive to light, extraocular muscles intact Neck-no lymphadenopathy or thyromegaly, trachea midline Chest-clear to auscultation. No rales, wheezing or rhonchi Cardiac-regular rate and rhythm, normal S1 and S2 Abdomen-normal bowel sounds, no hepatosplenomegaly Extremities-no cyanosis, clubbing, or edema Neuro-cranial nerves II through XII intact, motor and sensory function within normal limits, strength symmetrical, no focal deficits Psych-normal affect, normal mood Discharge Data Allergies Allergy/AdvReac Type Severity Reaction Status Date / Time haloperidol [From Haldol] Allergy Severe swelling Verified 08/18/23 23:15 of throat Egg Derived Allergy Unknown SWELLING Verified 08/18/23 23:15 OF THROAT Consultations 09/03/23 22:01 Consult Pulmonology Stat 09/03/23 23:15 ED Decision to Admit Stat Hospital Course (1) Choking episode: With suspected foreign body in the airway. Pulmonary consultation appreciated. He underwent bronchoscopy and there was no foreign body in the airways. (2) Foreign body ingestion: Chronic. No intervention needed at this time (3) Chronic abdominal pain: Chronic. No intervention needed at this time (4) Rectal pain: Chronic. No intervention needed at this time Plan Return to [facility] today, September 03 Total Time Total Time Spent Total Time Spent (In Minutes): 45-minute Discharge Plan Discharge Items [facility] Reason For Visit: FOREIGN BODY INGESTION Discharge Diagnosis: Choking episode without airway obstruction Activity: Resume your previous activity Non-emergency contact: Primary Care Provider Call non-emergency contact if: your symptoms worsen Follow-up/Referrals: Ronal WALL [Primary Care Provider] - Diet: Regular Addtl Attending Provider Instructions: No new medications at this time Pending Studies at Discharge: No Stand-Alone Forms: My [facility] Skilled Items Patient informed of condition?: Yes Discharge Level of Care: Other Communicable Disease: No Discharge Prognosis: Stable Lines: None Urinary Catheter: No Medications and DC Order Prescriptions: Continued omeprazole 40 mg Capsule,Delayed Release(Dr/Ec) 40 mg PO DAILY Rx Instructions: open capsule and sprinkle selenium sulfide 1 % Shampoo 1 applic TOPICAL DAILY Rx Instructions: massage into affected area; leave on for 10 mins ; rinse off thoroughly DermaDaily Lotion 1 ea TOPICAL DAILY Discharge Orders: Discharge Order (Routine); Ordered 09/04/23 Ordered By: Trevor Johnston Admission Data Admit Date/Time: 09/03/23 23:38 Attending Provider: Trevor Johnston Admit Provider: Abdulkadir Wilson Primary Care Provider: Ronal WALL Other Providers: Riley Barnard; Abdulkadir Wilson Coding Level of Care Code 07638 INP/OBS DISCH >30 MIN Diagnoses Choking episode R09.89 Foreign body ingestion T18.9XXA Chronic abdominal pain R10.9; G89.29 Rectal pain K62.89
== END 2023-09-04 13:45 | DRG 394 ==
LOC: ED 20:53 → SUATTDRO 23:38 → 2S 23:38

== ENCOUNTER 2023-09-04 15:42 | Inpatient (IN) ==
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
[2023-09-04] MEDS: FAMOTIDINE 20MG IV PUSH 20 MG/5 ML SYR IV STA (17:58)
[2023-09-04 18:03] LABS: Basophils # (auto) 0.04 K/uL (0.00-0.20); Basophils % (auto) 0.5 %; Eosinophils # (auto) 0.15 K/uL (0.00-0.50); Immature Granulocytes # (auto) 0.03 K/uL (0.01-0.20); Immature Granulocytes % (auto) 0.4 %; Lymphocytes # (auto) 1.35 K/uL (1.20-3.40); Lymphocytes % (auto) 18.4 %; Mean Corpuscular Hemoglobin 29.3 pg (25.0-34.0); Mean Corpuscular Hgb Conc 35.1 g/dL (32.0-36.0); Mean Corpuscular Volume 83.3 fL (80.0-100.0); Mean Platelet Volume 12.3 fL (9.4-12.4); Monocytes # (auto) 0.41 K/uL (0.11-0.59); Monocytes % (auto) 5.6 %; Neutrophils # (auto) 5.35 K/uL (1.40-6.50); Neutrophils % (auto) 73.1 %; Platelet Count 165 K/uL (130-400); RDW Coefficient of Variation 13.1 % (11.5-14.5); RDW Standard Deviation 39.5 fL (36.4-46.3); Red Blood Count 4.44 M/uL (4.70-6.10); White Blood Count 7.33 K/ul (4.8-10.8)
--- NOTE | 2023-09-04 18:23 | XRay Report ---
XR KUB/Abdomen 1 view CLINICAL HISTORY: eval for foreign bodies TECHNIQUE: 1 view of the abdomen was obtained. Comparison: Comparison is made to abdomen radiograph 08/18/2023 FINDINGS: Cylindrical metallic densities are seen within the stomach. Metallic buttons projecting over the peni s may also represent urethral foreign body. The osseous structures are grossly unremarkable. The suzie l gas pattern is nonobstructive. A moderate amount of stool is noted within the large bowel. IMPRESSION: Likely ingested foreign bodies such as batteries projecting over the stomach. Urethral foreign bodies project over the penile shaft. ACT 112: Negative or not required by law. Electronically signed by: Farzad Scott M.D. 09/04/2023 6:21 PM
[2023-09-04 18:25] LABS: Albumin Globulin Ratio 1.9 (0.9-2); Albumin Level 4.4 gm/dl (3.4-5.0); BUN Creatinine Ratio 18.9 (10-20); Bilirubin,Total 0.3 mg/dl (0.2-1.0); Calcium 8.8 mg/dl (8.6-10.3); Creatinine Clr Calc Pharmacy 145.7 ml/min; Est GFR (African American) 141.5 ml/min; Est GFR (Non-African American) 122.1 ml/min; Globulin 2.3 gm/dl (2.5-4.0); Potassium 4.1 mmol/L (3.5-5.1); Total Protein 6.7 gm/dl (6.0-8.3)
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
[2023-09-04 18:30] LABS: INR 1.1 (0.9-1.1); Partial Thromboplastin Time 29 Seconds (21-31); Prothrombin Time 11.5 Seconds (9.0-12.0)
--- NOTE | 2023-09-04 18:30 | XRay Report ---
XR chest 1V portable CLINICAL HISTORY: eval for foreign bodies TECHNIQUE: Single frontal radiograph of the chest was obtained. Comparison: Comparison is made to chest radiograph 09/03/2023 FINDINGS: No lines and tubes are seen. The cardiomediastinal silhouette is normal. The lungs are clear. No evid ence of pleural effusion or pneumothorax. IMPRESSION: No acute chest disease. Please see abdomen radiograph performed same day for findings of foreign bodi es. ACT 112: Negative or not required by law. Electronically signed by: Farzad Scott M.D. 09/04/2023 6:28 PM
[2023-09-04] MEDS: ACETAMINOPHEN 10MG/ML Custom 650 MG in EMPTY BAG 0 ML IV ONE (19:01)
[2023-09-04] MEDS ORDERED: ONDANSETRON INJ 2 MG/ML 2 ML VIAL IV PRN (20:45)
[2023-09-04] MEDS: PANTOprazole 40 MG in SYRINGE 0 ML IV ONE (21:05)
[2023-09-04] MEDS: D5W AND LACTATED RINGERS 1,000 ML IV SCH (21:05)
[2023-09-04 22:55] LABS: Hematocrit (blood only) 35.5 % (42.0-52.0); Hemoglobin 12.1 g/dl (14.0-18.0)
[2023-09-05 08:07] LABS: Basophils # (auto) 0.04 K/uL (0.00-0.20); Basophils % (auto) 0.9 %; Eosinophils # (auto) 0.18 K/uL (0.00-0.50); Eosinophils % (auto) 4.3 %; Hematocrit (blood only) 38.6 % (42.0-52.0); Hemoglobin 12.7 g/dl (14.0-18.0); Immature Granulocytes # (auto) 0.01 K/uL (0.01-0.20); Immature Granulocytes % (auto) 0.2 %; Lymphocytes # (auto) 1.33 K/uL (1.20-3.40); Lymphocytes % (auto) 31.5 %; Mean Corpuscular Hemoglobin 28.4 pg (25.0-34.0); Mean Corpuscular Hgb Conc 32.9 g/dL (32.0-36.0); Mean Corpuscular Volume 86.4 fL (80.0-100.0); Mean Platelet Volume 12.3 fL (9.4-12.4); Monocytes % (auto) 7.1 %; Neutrophils # (auto) 2.36 K/uL (1.40-6.50); Platelet Count 137 K/uL (130-400); RDW Coefficient of Variation 13.1 % (11.5-14.5); RDW Standard Deviation 40.3 fL (36.4-46.3); Red Blood Count 4.47 M/uL (4.70-6.10); White Blood Count 4.22 K/ul (4.8-10.8)
[2023-09-05 08:22] LABS: BUN Creatinine Ratio 17.6 (10-20); Creatinine Clr Calc Pharmacy 153.1 ml/min; Est GFR (African American) 146.5 ml/min; Est GFR (Non-African American) 126.4 ml/min; Potassium 3.5 mmol/L (3.5-5.1)
--- NOTE | 2023-09-05 09:00 | Urology Consultation ---
Date of Consultation September 05, 2023 Assessment & Plan (1) Urethral foreign body: Plan 32-year-old incarcerated male with a history of urethral foreign bodies who again presents with several foreign bodies in his urethra noted on KUB. Patient unable to void. As patient is unable to void, will take to the OR right away for cystoscopy and urethral foreign body removal and all other indicated procedures Risk and benefits discussed including but not limited pain, bleeding, i nfection, damage to genitourinary tract, recurrence of urethral stricture. Consent was obtained with patient in front of 2 retirement guards. Ancef to the OR History of Present Illness Reason for Consultation: Urethral foreign body Attending Physician: Zion Hunter History of Present Illness 32-year-old incarcerated male with a history of ingestion of foreign body as well as placing foreign bodies in his urethra. He has required numerous procedures to remove these from both GI and urologic perspective. I most recently removed a pen from his urethra on 08/18/2023. He was brought to the emergency department last night and was found on imaging to likely have batteries in his stomach and metallic foreign objects in his urethra. Afebrile with stable vitals. White blood cell count 4.22, creatinine 0.68. No urine has been collected. He was voiding spontaneously at the time. Patient reports he has be unable to void for greater than 12 hours. Reports there are several pieces of metal in his urethra Allergies Allergy/AdvReac Type Severity Reaction Status Date / Time Egg Derived Allergy Severe SWELLING Verified 09/04/23 18:35 OF THROAT haloperidol [From Haldol] Allergy Severe swelling Verified 09/04/23 18:35 of throat Home Medications Medication Instructions Recorded Confirmed Type min oil-zi brendon-pet,w-cetyl al 1 ea topical DAILY 09/03/23 09/04/23 History lotion (DermaDaily lotion) omeprazole 40 mg capsule,delayed 40 mg PO DAILY 09/03/23 09/04/23 History release selenium sulfide 1 % shampoo 1 applic topical DAILY 09/03/23 09/04/23 History Patient History Medical History (Updated 09/04/23 @ 19:23 by Marc Gilmore PA-C) Urethral foreign body Choking episode Swallowed foreign body Foreign body in urethra Per [place] discharge summary 07/09/23- patient pulled out bsasett and ate 5 ft of catheter tubing and also placed pieces of tubing back into urethra (EGD/cysto done 07/08/23 to remove foreign bodies) - Pt presented to [place] ED 07/10/23- reinserted another FB into urthetra - reason for upcoming procedure Blindness of left eye Seborrhea capitis Fracture of orbital floor left side - 06/26/23- seen at [facility] ED for "orbital blowout fracture"- following with ophthalmology as outpatient Fracture of nasal bone Gastritis Antisocial personality disorder Surgical History No history of previous surgery not listed on [facility] record Social History Smoking Status: Former smoker Do You Dip or Chew Tobacco: No; Hx Alcohol Use: No Hx Substance Use: No Preferred Language: Tajik Communication Ability: Effective Visual Impairment: Blindness 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 Required: No Beliefs That Will Affect Care: None Current Living Situation: Other Current Living Situation Comment: [facility] Other Information That Helps Us Care for You: No Feels Safe at Home: Yes Safety Concerns: Feels Safe At This Time Assistive Devices: None Review of Systems Review of Systems: 14 point review of systems negative outs christopher of what is listed above in HPI Physical Exam Physical Exam: General: Alert and oriented, no acute distress HEENT: Normocephalic, mucous membranes moist Pulmonary: Nonlabored respirations Abdomen: Nondistended Extremities: Moves all 4 spontaneously Neuro: No gross deficits Skin: Warm, dry, no rashes noted Results & Data Vital Signs (Past 12 Hours) Vital Signs Temp Pulse Pulse Resp BP Pulse Ox O2 Del Method 09/05/23 04:04 36.4 C L 50 L 18 121/82 100 Room Air 09/04/23 23:00 59 L 09/04/23 22:10 60 09/04/23 21:19 36.6 C 103 H 18 136/87 98 Room Air 09/04/23 21:19 36.6 C 18 136/87 98 Room Air PG Care Time/CCT Total # of Minutes Spent Total Time Spent with Patient: Total time spent is greater than 50% in coordination of care (as documented) at patient's floor/unit and/or counseling patient: Coding Level of Care Code 66432 OFFICE CONSULT LVL Diagnoses Urethral foreign body T19.0XXA Encounter type: initial encounter (1) Urethral foreign body Encounter type: initial encounter Qualified Code(s): T19.0XXA - Foreign body in urethra, initial encounter
[2023-09-05] MEDS ORDERED: ONDANSETRON INJ 2 MG/ML 2 ML VIAL ONE (09:53)
[2023-09-05] MEDS ORDERED: MIDAZOLAM HCL 1 MG/ML 2ML VIAL ONE (09:53)
[2023-09-05] MEDS ORDERED: fentaNYL citrate PF 100 MCG/2 ML VIAL ONE (09:53)
[2023-09-05] MEDS ORDERED: DEXAMETHASONE SOD INJ 4 MG/ML VIAL ONE (09:53)
[2023-09-05] MEDS ORDERED: LIDOCAINE 2% 2 ML VIAL/AMP(20MG/ML) INFIL ONE (09:53)
[2023-09-05] MEDS ORDERED: PROPOFOL IV EMULSION 10 MG/ML 20 ML VIAL IV ONE (09:53)
--- NOTE | 2023-09-05 09:56 | Gastrointestinal Consultation ---
Date of Consultation September 05, 2023 Assessment & Plan (1) Foreign body ingestion: Patient with ingestion of cylindrical batteries either AA or AAA. He says he doesn't get e-cigs. He says he did this "wednesday to wednesday". I will plan to remove these tomorrow. History of Present Illness Reason for Consultation: foreign body ingestion Attending Physician: Zion Stephens Elsa History of Present Illness 32 year old inmate who repeatedly ingests foreign bodies and inserts them in his penis. Was here Wednesday-Wednesday with questionable foreign body in airway. Was discharged yesterday and a few hours later acted like he was in pain and told guards at halfway that he had swallowed batteries "between wednesday and wednesday" and he also had put items in his penis. KUB suggests AA or AAA batteries. Lieutenant with patient says he thinks the batteries were from the remote in the hospital bed. Patient is on the way to surgery now for cystoscopy Allergies Allergy/AdvReac Type Severity Reaction Status Date / Time Egg Derived Allergy Severe SWELLING Verified 09/04/23 18:35 OF THROAT haloperidol [From Haldol] Allergy Severe swelling Verified 09/04/23 18:35 of throat Home Medications Medication Instructions Recorded Confirmed Type min oil-zi brendon-pet,w-cetyl al 1 ea topical DAILY 09/03/23 09/04/23 History lotion (DermaDaily lotion) omeprazole 40 mg capsule,delayed 40 mg PO DAILY 09/03/23 09/04/23 History release selenium sulfide 1 % shampoo 1 applic topical DAILY 09/03/23 09/04/23 History Patient History Medical History Urethral foreign body Choking episode Swallowed foreign body Foreign body in urethra Per [place] discharge summary 07/09/23- patient pulled out bassett and ate 5 ft of catheter tubing and also placed pieces of tubing back into urethra (EGD/cysto done 07/08/23 to remove foreign bodies) - Pt presented to [place] ED 07/10/23- reinserted another FB into urthetra - reason for upcoming procedure Blindness of left eye Seborrhea capitis Fracture of orbital floor left side - 06/26/23- seen at [facility] ED for "orbital blowout fracture"- followi ng with ophthalmology as outpatient Fracture of nasal bone Gastritis Antisocial personality disorder Surgical History No history of previous surgery not listed on [facility] record Social History Smoking Status: Former smoker Do You Dip or Chew Tobacco: No; Hx Alcohol Use: No Hx Substance Use: No Preferred Language: Danish Communication Ability: Effective Visual Impairment: Blindness Esthetician Facialist Required: No Beliefs That Will Affect Care: None Current Living Situation: Other Current Living Situation Comment: [facility] Other Information That Helps Us Care for You: No Feels Safe at Home: Yes Safety Concerns: Feels Safe At This Time Assistive Devices: None Review of Systems Review of Systems: All systems reviewed & are unremarkable except as noted in HPI & below Physical Exam Constitutional: WD/WN, vitals as above Neck: trachea midline, no thyromegaly Respiratory: normal respiratory effort, lungs clear to auscultation Cardiovascular: RRR, no murmur, no edema Gastrointestinal (Abdomen): normal bowel sounds, soft, nontender, no hepatosplenomegaly Results & Data Vital Signs (Past 12 Hours) Vital Signs Temp Pulse Pulse Resp BP Pulse Ox O2 Del Method 09/05/23 04:04 36.4 C L 50 L 18 121/82 100 Room Air 09/04/23 23:00 59 L 09/04/23 22:10 60
[2023-09-05] MEDS ORDERED: ATROPINE SULFATE 0.1 MG/ML 10ML SYR IV PRN (10:11)
[2023-09-05] MEDS ORDERED: fentaNYL citrate PF 100 MCG/2 ML VIAL IV PRN (10:11)
[2023-09-05] MEDS ORDERED: ePHEDrine sulfate 50 MG/ML AMP IV PRN (10:11)
[2023-09-05] MEDS ORDERED: ONDANSETRON INJ 2 MG/ML 2 ML VIAL IV PRN (10:11)
--- NOTE | 2023-09-05 10:11 | Anesthesiology Consultation ---
Date of Service September 05, 2023 Assessment & Plan ASA ASA2 Proposed Anesthesia Anesthesia Type: General Risk / Benefits Reviewed With: PT / POA / Parent / Guardian, Accepts Plan and Informed Consent Obtained History Surgery Operation Date: 09/05/23 10:30 Proposed Procedures p Cystoscopy, Urethral Foreign Body Removal - José Manuel Meadows MD Height/Weight Height: 5 ft 10 in Weight: 69.4 kg Allergies Allergy/AdvReac Type Severity Reaction Status Date / Time Egg Derived Allergy Severe SWELLING Verified 09/04/23 18:35 OF THROAT haloperidol [From Haldol] Allergy Severe swelling Verified 09/04/23 18:35 of throat Medications Home Medications Medication Instructions Recorded Confirmed Last Taken min oil-zi brendon-pet,w-cetyl al 1 ea topical DAILY 09/03/23 09/04/23 08/29/23 lotion (DermaDaily lotion) omeprazole 40 mg capsule,delayed 40 mg PO DAILY 09/03/23 09/04/23 08/28/23 release selenium sulfide 1 % shampoo 1 applic topical DAILY 09/03/23 09/04/23 08/29/23 NPO Date Last Intake of Fluids: 09/04/23 Time Last Intake of Fluids: 12:00 Date Last Intake of Solids: 09/04/23 Time Last Intake of Solids: 12:00 Past Medical History Medical History Urethral foreign body Choking episode Swallowed foreign body Foreign body in urethra Per [place] discharge summary 07/09/23- patient pulled out bassett and ate 5 ft of catheter tubing and also placed pieces of tubing back into urethra (EGD/cysto done 07/08/23 to remove foreign bodies) - Pt presented to [place] ED 07/10/23- reinserted another FB into urthetra - reason for upcoming procedure Blindness of left eye Seborrhea capitis Fracture of orbital floor left side - 06/26/23- seen at [facility] ED for "orbital blowout fracture"- following with ophthalmology as outpatient Fracture of nasal bone Gastritis Antisocial personality disorder Exercise / Class Metabolic Activity II 4-5 Yardwork/Stairs/Walk up hill Past Surgical History Surgical History No history of previous surgery not listed on [facility] record Past Anesthesia History No Hx of Anesthesia Complications and No Family Hx of Anesthesia Complications History of PONV No Hx of PONV and No Hx of Motion Sickness Social History Smoking Status: Former smoker Do You Dip or Chew Tobacco: No Hx Alcohol Use: No Hx Substance Use: No substance use type: does not use Review of Systems denies fever/cough/ colds/ chest pain/ SOB/ CHANDRAKANT denies CHANDRAKANT Physical Exam Vital Signs Last Vital Signs Temp 36.4 C L 09/05/23 04:04 Pulse 50 L 09/05/23 04:04 Resp 18 09/05/23 04:04 BP 121/82 09/05/23 04:04 Pulse Ox 100 09/05/23 04:04 O2 Del Method Room Air 09/05/23 04:04 ENMT Mouth: no TMJ abnormality and no dentition abnormality Thyromental Distance: > or= 3.5 Finger Breadths Mallampati Class: II Neck neck extension not limited Respiratory normal respiratory effort; no respiratory distress Auscultation: lungs clear to auscultation bilaterally Cardiovascular Rate/Rhythm: regular rate and regular rhythm Neurologic moves all extremities Psychiatric Orientation: alert and oriented x 3 Testing Laboratory Results 09/05/23 07:24 09/05/23 07:24 PT 11.5 Seconds (9.0-12.0) 09/04/23 17:35 INR 1.1 (0.9-1.1) 09/04/23 17:35 APTT 29 Seconds (21-31) 09/04/23 17:35
--- NOTE | 2023-09-05 10:35 | Operative Report ---
PG Post Operative Report Pre & Post Diagnosis Urethral foreign body Operation Date: 09/05/23 10:30 <No data on this case meets the specified criteria> Urethral foreign body I identified the patient and participated in the time-out.: Yes Procedure Operation Date: 09/05/23 10:30 Actual Procedures p Cystoscopy, Urethral Foreign Body Removal - José Manuel Meadows MD Surgeon José Manuel Meadows MD Patrol Agent None Estimated Blood Loss 0 Findings Consistent with Post-Op Diagnosis Two EKG lead buttons and bulbar urethra Specimens Two urethral foreign bodies Drains None Anesthesia Type General Complications none Indications 32-year-old incarcerated male with recurrent urethral foreign bodies who reports that 2 screws were placed in his urethra. Unable to urinate. Description of Procedure After informed consent was obtained, the patient was transported to the operative suite. General anesthesia was induced. They were placed in dorsal lithotomy position and prepped and draped in sterile fashion. They received preoperative Ancef. An appropriate surgical timeout was performed. 2 [facility] guards were present during the entirety of the case 21 Wolof rigid cystoscope was inserted per urethra.. 2 metallic objects were encountered in the bulbar urethra. Using a grasper both of these were removed. There appeared to be EKG lead buttons. I went back into the bladder with the scope and performed a careful cystoscopy which did not show any other foreign bodies. Slow removal of the scope showed no other urethral foreign bodies or injuries. Bladder was left full and scope was removed. This concluded the end of the case. All counts correct at the end of the case. I was present scrubbed and actively participated for the entirety of the case. I attest to the content of the Intraoperative Record and any orders documented therein. Any exceptions are noted below.
[2023-09-05] MEDS: PANTOprazole 40 MG in SYRINGE 0 ML IV SCH (10:50)
--- NOTE | 2023-09-05 11:10 | Anesthesiology Progress Note ---
Date of Service September 05, 2023 Anesthesia Post Procedure Vital Signs Vital Signs: Temp Pulse Pulse Pulse Resp BP BP 09/05/23 11:00 48 L 12 105/59 L 09/05/23 10:50 51 L 12 100/51 L 09/05/23 10:40 36.6 C 49 L 12 94/48 L 09/05/23 04:04 36.4 C L 50 L 18 121/82 09/04/23 23:00 59 L 09/04/23 22:10 60 09/04/23 21:19 36.6 C 103 H 18 136/87 09/04/23 21:19 36.6 C 18 136/87 09/04/23 15:45 36.0 C L 80 20 129/87 Pulse Ox O2 Del Method O2 Flow Rate 09/05/23 11:00 100 Room Air 09/05/23 10:50 100 Oxymask 4 09/05/23 10:40 100 Oxymask 8 09/05/23 04:04 100 Room Air 09/04/23 23:00 09/04/23 22:10 09/04/23 21:19 98 Room Air 09/04/23 21:19 98 Room Air 09/04/23 15:45 100 Pain Intensity Abdomen: Pain Intensity: 9 Transfer of Care Handoff Completed per policy Notes Mental Status: alert / awake / arousable and participated in evaluation Patient Amnestic to Procedure: Yes Nausea / Vomiting: adequately controlled Pain: adequately controlled Airway Patency, RR, SpO2: stable & adequate BP & HR: stable & adequate Hydration State: stable & adequate Anesthetic Complications: no major complications apparent and Pt Satisfied with anesthetic care
[2023-09-05] MEDS: ceFAZolin 2000MG 2,000 MG/15 ML SYR IV ONE (11:47)
[2023-09-05] MEDS: ACETAMINOPHEN 1,000 MG/100 ML VIAL IV PRN (12:03)
[2023-09-05] MEDS: FAMOTIDINE 20MG IV PUSH 20 MG/5 ML SYR IV SCH (12:06)
--- NOTE | 2023-09-05 12:22 | Hospitalist Progress Note ---
Date of Service September 05, 2023 Assessment & Plan (1) Foreign body ingestion: Plan: Severe LUQ abdominal pain Ingestion of 2 cylindrical batteries sometime between Thursday 08/31 and Saturday 09/02 Strict NPO; IVF with D5LR at 100mL/hr x 1 Gastroenterology consulted; contacted by ED, and no emergent endoscopy needed (as these are not button batteries); will see patient on 09/04 Protonix 40 mg IV daily Famotidine 20mg IV daily Zofran 4 mg IV q6h as needed Acetaminophen 1000 mg IV q8h as needed for pain appreciate input from GI (2) Urethral foreign body: Plan: Patient also endorses placing plastic/metal objects up his urethra Urology consulted Removed foreign body on 09/04 ordered morphine for pain. (3) Hematuria: Plan: Secondary to #2 (4) Hematemesis: Plan: Patient notes he had an episode of bloody emesis after ingestion of part of his jumpsuit on 09/02 Also endorses choking episode with hemoptysis (5) Acute blood loss anemia: Plan: Hgb 13.0 on arrival; secondary to FB ingestions/insertions Trend H&H Plan Disposition: Obs - Admit to [facility] telemetry Full code Keep strict n.p.o. VTE PPx: SCDs (hold chemical DVT PPx due to risk of GI bleed / hematuria) Admission and Anticipated Discharge Date Admission Date: September 04, 2023 Subjective 32 yo male concerned about his penile pain. Review of Systems Review of Systems: All systems reviewed & are unremarkable except as noted in HPI & below Physical Exam Physical Exam: General: no acute distress; non-toxic appearing; well-nourished; cooperative HEENT: normocephalic, atraumatic; Neuro: A&Ox3; normal mood and affect; Results & Data Results & Data Vital Signs (Past 12 Hours) Vital Signs Temp Pulse Pulse Resp BP Pulse Ox O2 Del Method 09/05/23 11:42 36.9 C 82 12 110/76 Room Air 09/05/23 11:10 46 L 12 114/66 100 Room Air 09/05/23 11:00 48 L 12 105/59 L 100 Room Air 09/05/23 10:50 51 L 12 100/51 L 100 Oxymask 09/05/23 10:40 36.6 C 49 L 12 94/48 L 100 Oxymask 09/05/23 04:04 36.4 C L 50 L 18 121/82 100 Room Air O2 Flow Rate 09/05/23 11:42 09/05/23 11:10 09/05/23 11:00 09/05/23 10:50 4 09/05/23 10:40 8 09/05/23 04:04 PG Care Time/CCT Total # of Minutes Spent Total Time Spent with Patient: Total time spent is greater than 50% in coordination of care (as documented) at patient's floor/unit and/or counseling patient: Coding Level of Care Code 10714 SUB INP/OBS CARE 2/35MIN Diagnoses Foreign body ingestion T18.9XXA Urethral foreign body T19.0XXA Encounter type: initial encounter Hematuria R31.9 Hematemesis K92.0 Acute blood loss anemia D62 (2) Urethral foreign body Encounter type: initial encounter Qualified Code(s): T19.0XXA - Foreign body in urethra, initial encounter
[2023-09-05] MEDS: MoRPHine SULFATE 2 MG/ML CARP IV STA (12:32)
[2023-09-05] MEDS: MoRPHine SULFATE 2 MG/ML CARP IV PRN (18:09)
[2023-09-06 07:35] LABS: Hematocrit (blood only) 38.1 % (42.0-52.0); Hemoglobin 12.8 g/dl (14.0-18.0); Mean Corpuscular Hemoglobin 28.6 pg (25.0-34.0); Mean Corpuscular Hgb Conc 33.6 g/dL (32.0-36.0); Mean Platelet Volume 11.9 fL (9.4-12.4); Platelet Count 161 K/uL (130-400); RDW Coefficient of Variation 12.9 % (11.5-14.5); RDW Standard Deviation 39.3 fL (36.4-46.3); Red Blood Count 4.48 M/uL (4.70-6.10); White Blood Count 5.08 K/ul (4.8-10.8)
[2023-09-06 07:54] LABS: BUN Creatinine Ratio 6.8 (10-20); Calcium 8.8 mg/dl (8.6-10.3); Creatinine Clr Calc Pharmacy 142.6 ml/min; Est GFR (African American) 142.2 ml/min; Est GFR (Non-African American) 122.7 ml/min; Potassium 3.7 mmol/L (3.5-5.1)
--- NOTE | 2023-09-06 13:02 | Anesthesiology Consultation ---
Date of Service September 06, 2023 Assessment & Plan Chart Review Chart Review: Acceptable Risk for Surgery and Patient NOT seen in Pre Admission Testing Consults Requested none ASA ASA2 Proposed Anesthesia Anesthesia Type: General History Surgery Operation Date: 09/05/23 10:30 Proposed Procedures p Cystoscopy, Urethral Foreign Body Removal - José Manuel Meadows MD Operation Date: 09/06/23 08:40 Proposed Procedures p Esophagogastroduodenoscopy - Ary Ascencio Jr, MD Height/Weight Height: 5 ft 10 in Weight: 69.4 kg Allergies Allergy/AdvReac Type Severity Reaction Status Date / Time Egg Derived Allergy Severe SWELLING Verified 09/04/23 18:35 OF THROAT haloperidol [From Haldol] Allergy Severe swelling Verified 09/04/23 18:35 of throat Medications Home Medications Medication Instructions Recorded Confirmed Last Taken min oil-zi brendon-pet,w-cetyl al 1 ea topical DAILY 09/03/23 09/04/23 08/29/23 lotion (DermaDaily lotion) omeprazole 40 mg capsule,delayed 40 mg PO DAILY 09/03/23 09/04/23 08/28/23 release selenium sulfide 1 % shampoo 1 applic topical DAILY 09/03/23 09/04/23 08/29/23 Active Medications Generic Name Dose Route Start Last Admin Trade Name Freq PRN Reason Stop Dose Admin Famotidine 20 mg in 5 mls @ 2.5 mls/min 09/05/23 09:00 09/06/23 08:11 Pepcid 20mg Iv Push IV 10/05/23 08:59 2.5 mls/min QAM MALENA Administration Pantoprazole Sodium 40 mg/ 10 mls @ 5 mls/min 09/05/23 11:00 09/05/23 11:47 Syringe IV 10/05/23 10:59 5 mls/min DAILY@1100 MALENA Administration Acetaminophen 1,000 mg in 100 mls @ 400 mls/hr 09/05/23 01:00 09/05/23 15:22 Ofirmev IV 09/08/23 00:59 Infused Q8H PRN Infusion Strict NPO; pain Morphine Sulfate 2 mg 09/05/23 15:37 09/06/23 10:30 Morphine Sulfate 2 Mg/Ml Carp IV 09/19/23 15:36 2 mg Q4H PRN Administration Pain Past Medical History Medical History Urethral foreign body Choking episode Swallowed foreign body Foreign body in urethra Per [place] discharge summary 07/09/23- patient pulled out bassett and ate 5 ft of catheter tubing and also placed pieces of tubing back into urethra (EGD/cysto done 07/08/23 to remove foreign bodies) - Pt presented to [place] ED 07/10/23- reinserted another FB into urthetra - reason for upcoming procedure Blindness of left eye Seborrhea capitis Fracture of orbital floor left side - 06/26/23- seen at [facility] ED for "orbital blowout fracture"- following with ophthalmology as outpatient Fracture of nasal bone Gastritis Antisocial personality disorder Exercise / Class Metabolic Activity II 4-5 Yardwork/Stairs/Walk up hill Past Surgical History Surgical History No history of previous surgery not listed on [facility] record Past Anesthesia History No Hx of Anesthesia Complications and No Family Hx of Anesthesia Complications History of PONV No Hx of PONV and No Hx of Motion Sickness Social History Smoking Status: Former smoker Do You Dip or Chew Tobacco: No Hx Alcohol Use: No Hx Substance Use: No substance use type: does not use Physical Exam Vital Signs Last Vital Signs Temp 36.5 C 09/06/23 03:50 Pulse 55 L 09/06/23 11:55 Resp 18 09/06/23 11:55 BP 130/88 09/06/23 11:55 Pulse Ox 99 09/06/23 11:55 O2 Del Method Room Air 09/06/23 11:55 O2 Flow Rate 4 09/05/23 10:50 Testing Laboratory Results 09/06/23 07:09 09/06/23 07:09 PT 11.5 Seconds (9.0-12.0) 09/04/23 17:35 INR 1.1 (0.9-1.1) 09/04/23 17:35 APTT 29 Seconds (21-31) 09/04/23 17:35 Electrocardiogram Date: 08/17/23 Findings: + NSR @ (@ 67) Chest X-Ray Date: 09/04/23 Findings: + NAD
[2023-09-06] MEDS ORDERED: fentaNYL citrate PF 100 MCG/2 ML VIAL ONE (13:15)
[2023-09-06] MEDS ORDERED: LIDOCAINE 2% 2 ML VIAL/AMP(20MG/ML) INFIL ONE (13:15)
[2023-09-06] MEDS ORDERED: PROPOFOL IV EMULSION 10 MG/ML 20 ML VIAL IV ONE (13:15)
[2023-09-06] MEDS ORDERED: MIDAZOLAM HCL 1 MG/ML 2ML VIAL ONE (13:15)
--- NOTE | 2023-09-06 13:35 | History & Physical Report ---
Date of Service September 06, 2023 Assessment & Plan (1) Foreign body ingestion: Plan: Foreing body ingestion for EGD. Procedure and risks discussed. He agrees Admission and Anticipated Discharge Date Admission Date: September 05, 2023 History of Present Illness Chief Complaint: foreign body ingestion Primary Care Provider: [facility] Inmate who swallowed batteries Allergies Allergy/AdvReac Type Severity Reaction Status Date / Time Egg Derived Allergy Severe SWELLING Verified 09/04/23 18:35 OF THROAT haloperidol [From Haldol] Allergy Severe swelling Verified 09/04/23 18:35 of throat Home Medications Medication Instructions Recorded Confirmed Type min oil-zi brendon-pet,w-cetyl al 1 ea topical DAILY 09/03/23 09/04/23 History lotion (DermaDaily lotion) omeprazole 40 mg capsule,delayed 40 mg PO DAILY 09/03/23 09/04/23 History release selenium sulfide 1 % shampoo 1 applic topical DAILY 09/03/23 09/04/23 History Past Med/Surg History Medical History Urethral foreign body Choking episode Swallowed foreign body Foreign body in urethra Per [place] discharge summary 07/09/23- patient pulled out bassett and ate 5 ft of catheter tubing and also placed pieces of tubing back into urethra (EGD/cysto done 07/08/23 to remove foreign bodies) - Pt presented to [facility] ED 07/10/23- reinserted another FB into urthetra - reason for upcoming procedure Blindness of left eye Seborrhea capitis Fracture of orbital floor left side - 06/26/23- seen at [facility] ED for "orbital blowout fracture"- following with ophthalmology as outpatient Fracture of nasal bone Gastritis Antisocial personality disorder Surgical History No history of previous surgery not listed on [facility] record Social History Smoking Status: Former smoker Do You Dip or Chew Tobacco: No; Hx Alcohol Use: No Hx Substance Use: No Preferred Language: Kazakh Communication Ability: Effective Visual Impairment: Blindness Hardware Technician Required: No Beliefs That Will Affect Care: None Current Living Situation: Other Current Living Situation Comment: [facility] Other Information That Helps Us Care for You: No Feels Safe at Home: Yes Safety Concerns: Feels Safe At This Time Assistive Devices: None Physical Exam Constitutional: WD/WN, vitals as above Respiratory: normal respiratory effort, lungs clear to auscultation Cardiovascular: RRR, no murmur, no edema ASA Classification ASA ASA2 Results & Data Vital Signs (Past 12 Hours) Vital Signs Temp Pulse Pulse Resp BP BP Pulse Ox 09/06/23 11:55 55 L 18 130/88 99 09/06/23 08:07 59 L 16 128/89 99 09/06/23 03:50 36.5 C 57 L 16 132/88 98 O2 Del Method 09/06/23 11:55 Room Air 09/06/23 08:07 Room Air 09/06/23 03:50 Room Air Code Status & VTE Plan VTE Prophylaxis Plan VTE Prophylaxis will be ordered: Yes
[2023-09-06] MEDS: LACTATED RINGER'S 1,000 ML IV SCH (13:37)
[2023-09-06] MEDS ORDERED: fentaNYL citrate PF 100 MCG/2 ML VIAL IV PRN (13:42)
[2023-09-06] MEDS ORDERED: ONDANSETRON INJ 2 MG/ML 2 ML VIAL IV PRN ×2 (13:42→14:53)
[2023-09-06] MEDS ORDERED: ePHEDrine sulfate 50 MG/ML AMP IV PRN ×2 (13:42→14:53)
[2023-09-06] MEDS ORDERED: NALOXONE HCL 0.4 MG/1 ML VIAL/CARP IV PRN ×2 (13:42→14:53)
[2023-09-06] MEDS ORDERED: PROMETHAZINE HCL 6.25 MG in SODIUM CHLORIDE 0.9% 50 ML IV PRN ×2 (13:42→14:53)
[2023-09-06] MEDS ORDERED: ATROPINE SULFATE 0.1 MG/ML 10ML SYR IV PRN ×2 (13:42→14:53)
[2023-09-06] MEDS ORDERED: FLUMAZENIL 0.1 MG/1 ML 10 ML VIAL IV PRN ×2 (13:42→14:53)
[2023-09-06] MEDS ORDERED: SUCCINYLCHOLINE CHLORIDE 20 MG/ML 10 ML VIAL IV ONE (13:55)
[2023-09-06] MEDS ORDERED: ONDANSETRON INJ 2 MG/ML 2 ML VIAL ONE (13:55)
[2023-09-06] MEDS ORDERED: DEXAMETHASONE SOD INJ 4 MG/ML VIAL ONE (13:55)
--- NOTE | 2023-09-06 14:04 | GI REPORT ---
Patient Name: Jose Gibbs Procedure Date: 09/06/2023 12:46 PM Date of : 1990 Admit Type: Inpatient Age: 32 Gender: Male Attending MD: Ary Ascencio MD, Procedure: Upper GI endoscopy Providers: Ary Ascencio MD Referring MD: Zion José M.d. Indications: Foreign body in the stomach Medicines: General Anesthesia Complications: No immediate complications. Estimated Blood Loss: Estimated blood loss: none. Procedure: Pre-Anesthesia Assessment: - Prior to the procedure, a History and Physical was performed, and patient medications and allergies were reviewed. The patient's tolerance of previous anesthesia was also reviewed. The risks and benefits of the procedure and the sedation options and risks were discussed with the patient. All questions were answered, and informed consent was obtained. Prior Anticoagulants: The patient has taken no anticoagulant or antiplatelet agents. ASA Grade Assessment: II - A patient with mild systemic disease. After reviewing the risks and benefits, the patient was deemed in satisfactory condition to undergo the procedure. After obtaining informed consent, the endoscope was passed under direct vision. Throughout the procedure, the patient's blood pressure, pulse, and oxygen saturations were monitored continuously. The Endoscope was introduced through the mouth, and advanced to the second part of duodenum. The upper GI endoscopy was accomplished without difficulty. The patient tolerated the procedure well. Findings: The esophagus was normal. The stomach was normal. The examined duodenum was normal. Impression: - Normal esophagus. - Normal stomach. - Normal examined duodenum. - No specimens collected. Recommendation: - [facility]. Ary Ascencio MD 09/06/2023 2:04:01 PM Note Initiated On: 09/06/2023 12:46 PM Number of Addenda: 0 I attest to the content of the Intraoperative Record and orders documented therein, exceptions below {[id number]}
--- NOTE | 2023-09-06 14:05 | Communication Note ---
Date of Service: September 06, 2023 EGD shows batteries have moved out of stomach. Should not cause any issues as they are cylindrical batteries and not disc batteries. Should pass normally.
--- NOTE | 2023-09-06 14:51 | Anesthesiology Progress Note ---
Date of Service September 06, 2023 Anesthesia Post Procedure Vital Signs Vital Signs: Temp Pulse Pulse Pulse Resp BP BP 09/06/23 14:40 47 L 15 105/69 09/06/23 14:30 47 L 13 107/71 09/06/23 14:20 36.6 C 50 L 18 L 18 114/76 09/06/23 13:32 36.9 C 61 18 142/87 H 09/06/23 11:55 55 L 18 130/88 09/06/23 08:07 59 L 16 128/89 09/06/23 03:50 36.5 C 57 L 16 132/88 09/05/23 23:45 36.5 C 58 L 17 144/91 H 09/05/23 23:00 59 L 09/05/23 20:20 36.8 C 66 17 143/87 H Pulse Ox O2 Del Method O2 Flow Rate 09/06/23 14:40 100 Nasal Cannula 3 09/06/23 14:30 100 Nasal Cannula 3 09/06/23 14:20 100 Nasal Cannula 3 09/06/23 13:32 100 Room Air 09/06/23 11:55 99 Room Air 09/06/23 08:07 99 Room Air 09/06/23 03:50 98 Room Air 09/05/23 23:45 100 Room Air 09/05/23 23:00 09/05/23 20:20 98 Room Air Pain Intensity Abdomen: Pain Intensity: 0 Transfer of Care Handoff Completed per policy Notes Mental Status: alert / awake / arousable Patient Amnestic to Procedure: Yes Nausea / Vomiting: adequately controlled Pain: improving with treatment and see Notes below (Patient swallowed foreign bodies.EGD was just performed and stomach was empty. FB's passed,which may be the cause of abdominal discomfort.) Airway Patency, RR, SpO2: stable & adequate BP & HR: stable & adequate Hydration State: stable & adequate Anesthetic Complications: no major complications apparent
[2023-09-06] MEDS: fentaNYL citrate PF 100 MCG/2 ML VIAL ONE (14:52)
[2023-09-06] MEDS: fentaNYL citrate PF 100 MCG/2 ML VIAL IV PRN (15:00)
--- NOTE | 2023-09-06 16:19 | Discharge Summary ---
Date of Service September 06, 2023 Admission HPI Per Admitting Provider Inmate who swallowed batteries Principal Diagnosis foreign body ingestion Discharge Exam General: no acute distress; non-toxic appearing; well-nourished; cooperative HEENT: normocephalic, atraumatic; Neuro: A&Ox3; normal mood and affect; Discharge Data Allergies Allergy/AdvReac Type Severity Reaction Status Date / Time Egg Derived Allergy Severe SWELLING Verified 09/04/23 18:35 OF THROAT haloperidol [From Haldol] Allergy Severe swelling Verified 09/04/23 18:35 of throat Consultations 09/04/23 18:29 ED Decision to Admit Stat 09/04/23 20:45 Consult Gastroenterology Routine Consult Urology Routine Procedures Performed Operation Date: 09/06/23 08:40 Actual Procedures p Esophagogastroduodenoscopy - Ary Ascencio Jr, MD Hospital Course (1) Foreign body ingestion: Severe LUQ abdominal pain Ingestion of 2 cylindrical batteries sometime between Thursday 08/31 and Saturday 09/02 Gastroenterology consulted; contacted by ED, endoscopy noted, no batteries found. Patient will await batteries to come out via bowel movement treated with (inhouse) Protonix 40 mg IV daily Famotidine 20mg IV daily appreciate input from GI (2) Urethral foreign body: Patient also endorses placing plastic/metal objects up his urethra Urology consulted Removed foreign body on 09/04 ordered pyridium as an outpatient for 3 days. (3) Hematuria: Secondary to #2 (4) Hematemesis: Patient notes he had an episode of bloody emesis after ingestion of part of his jumpsuit on 09/02 Also endorses choking episode with hemoptysis. This has subsided (5) Acute blood loss anemia: Hgb 13.0 on arrival; secondary to FB ingestions/insertions hemoglobin has stabilized Total Time Total Time Spent Total Time Spent (In Minutes): 32 Discharge Plan Discharge Items Patient Disposition: Home - Self-Care Reason For Visit: FOREIGN BODY INGESTION Discharge Diagnosis: foreign body ingestion Condition on Discharge: Good Activity: Resume your previous activity Non-emergency contact: Primary Care Provider Call non-emergency contact if: you have any medication questions Follow-up/Referrals: Ronal WALL [Primary Care Provider] - Diet: Low Fiber Addtl Attending Provider Instructions: abstain from foreign body ingestion. Pending Studies at Discharge: No Stand-Alone Forms: My [facility], Smoking Cessation Medications and DC Order Prescriptions: New phenazopyridine [Pyridium] 200 mg tablet 200 mg PO Q8H PRN (Reason: urinary pain) 3 Days Qty: 9 0RF famotidine [Pepcid] 40 mg tablet 40 mg PO DAILY Qty: 30 0RF Continued omeprazole 40 mg Capsule,Delayed Release(Dr/Ec) 40 mg PO DAILY Rx Instructions: open capsule and sprinkle selenium sulfide 1 % Shampoo 1 applic TOPICAL DAILY Rx Instructions: massage into affected area; leave on for 10 mins ; rinse off thoroughly DermaDaily Lotion 1 ea TOPICAL DAILY Discharge Orders: Discharge Order (Routine); Ordered 09/06/23 Ordered By: Zion Hunter Admission Data Admit Date/Time: 09/05/23 12:13 Attending Provider: Zion Hunter Admit Provider: Konstantin Anand Primary Care Provider: Ronal WALL Other Providers: Konstantin Anand; Ary Ascencio Jr; Evens Nava Other Interventions: Discharge Summary Assessment (RN) Last Done: 09/06/23 17:58 Coding Level of Care Code 69022 INP/OBS DISCH >30 MIN Diagnoses Foreign body ingestion T18.9XXA Urethral foreign body T19.0XXA Encounter type: initial encounter Hematuria R31.9 Hematemesis K92.0 Acute blood loss anemia D62
[2023-09-06] MEDS: MoRPHine SULFATE 2 MG/ML CARP IV STA (18:52)
== END 2023-09-06 18:54 | DRG 699 ==
LOC: ED 15:42 → 2S 15:42 → SUATTDRO 18:49 → 2S 20:13